=== PATIENT | female | born 1955 | race Hispanic/Latino ===

== ENCOUNTER 2020-08-13 10:57 | Emergency (ER) | payer OTHER, SELFPAY ==
--- OUTSIDE RECORDS SUMMARY | 2020-08-13 11:01 | XMS REPORT | Continuity of Care Document ---
:1955 Author Organization [facility] t Address [address] [place] [address] Care Team Providers Name Role Phone Chao Stafford RN Attending Clinician JESSICA Attending Clinician Unavailable Will Attending Clinician Eve Carreno MD Attending Clinician Anurag GUERRA Attending Clinician Chris Andres DO Attending Clinician RENITA Admitting Clinician Unavailable Anurag GUERRA Admitting Clinician Problems This patient has no known problems. Allergies, Adverse Reactions, Alerts This patient has no known allergies or adverse reactions. Medications This patient has no known medications. Procedures This patient has no known procedures. Encounters Start End Encounter Admission Attending Care Care Encounter Source Date/Time Date/Time Type Type Clinicians Facility Department ID 2020-08-12 2020-08-12 Outpatient [facility] [id number] 00:00:00 00:00:00 [facility]ics 2020-08-08 2020-08-08 Patient Bernice Stafford [id number] 00:00:00 00:00:00 Outreach E Carrillo [id number] [place] [id number] 2020-08-01 2020-08-05 Inpatient ANA LOPEZ [facility] [id number] [place] 00:00:00 00:00:[address] 2020-07-31 2020-07-31 Transition Nikos Solis [id number] 00:00:00 00:00:00 of Care Adalgisa Shawy [id number] [place] [id number] 2020-07-31 2020-07-31 Transition Solis, Nickn [id number] 00:00:00 00:00:00 of Care Adalgisa Shawy [id number] [place] [id number] 2020-07-31 2020-07-31 [facility] [id number] [facility] 00[facility]00[facility]00 [facility] 2020-07-25 2020-07-30 [facility] [id number] 04:52:00 18:00:00 Encounter Snow Osborn [id number] [facility] [id number] 2020-07-29 2020-07-29 [facility] [id number] 2020-06-18 2020-06-18 [facility] [id number] [facility] 2020-03-26 2020-03-26 [facility] [id number] [facility] 2020-03-21 2020-03-21 [facility] [id number] [facility] 2020-03-12 2020-03-12 Outpatient [facility] [id number] [facility] 00:00:00 00:00:00 [facility] Results This patient has no known results.
[2020-08-13 12:08] LABS: Basophils % 1.3 % (0-1.3); Hematocrit 36.6 % (36.0-45.0); Lymphocytes % 35.6 % (15.3-44.8); MPV 8.8 fL (7.6-11.3); RBC Red Blood Cell Count 4.15 M/uL (3.86-4.86)
[2020-08-13] MEDS ORDERED: ONDANSETRON 4 MG/2 ML VIAL ONE (12:15)
[2020-08-13 12:19] LABS: Protime INR 1.36
--- NOTE | 2020-08-13 12:42 | RAD REPORT ---
EXAM DESCRIPTION: RAD - Chest Single View - 08/13/2020 12:20 pm CLINICAL HISTORY: SOB, abdominal pain, recent COVID Diagnosis COMPARISON: None TECHNIQUE: AP portable chest image was obtained 08/13/2020 12:20 pm . FINDINGS: Lung volumes are low. Perihilar stranding is most likely atelectasis or possibly scarring. No definitive pneumonia findings seen. No failure or volume overload suspected. Heart and vasculatur e are normal. No measurable pleural effusion and no pneumothorax. No acute bony abnormality seen. No acute aortic findings suspected. IMPRESSION: Scarring or atelectasis changes are present in the perihilar regions. No definitive finding of COVID-19 pneumonia. If clinically warranted, CT chest imaging could be perfo rmed for more sensitive assessment.
[2020-08-13 12:44] LABS: ALT/SGPT 51 U/L (12-78); AST/SGOT 46 U/L (15-37); Albumin 3.5 g/dL (3.4-5.0); Alkaline Phosphatase 54 U/L (45-117); BUN Blood Urea Nitrogen 8 mg/dL (7-18); Bicarbonate 35 mmol/L (21-32); Bilirubin Direct 0.2 mg/dL (0-0.2); Bilirubin Total 0.8 mg/dL (0.2-1.0); Glucose Level 123 mg/dL (74-106); Lipase 112 U/L (73-393); Magnesium 1.6 mg/dL (1.8-2.4); NT PRO-BNP 22 pg/mL (<125); Protein, Total 7.6 g/dL (6.4-8.2); Sodium Level 136 mmol/L (136-145); Troponin (Emerg Dept Use Only) < 0.02 ng/mL (0.0-0.045)
[2020-08-13 12:46] LABS: Potassium 2.4 mmol/L (3.5-5.1)
[2020-08-13] MEDS ORDERED: POTASSIUM CL SA 10 MEQ TAB PO ONE (13:13)
[2020-08-13] MEDS ORDERED: KCL 20 MEQ/100 mL IVPB 20 MEQ/100 ML BAG IV ONE (13:13)
[2020-08-13] MEDS ORDERED: NA CHLORIDE 0.9% 500 ML ONE (13:57)
--- NOTE | 2020-08-13 14:02 | RAD REPORT ---
EXAM DESCRIPTION: CTAbdomen Pelvis W Contrast - 08/13/2020 1:46 pm CLINICAL HISTORY: Abdominal pain. EPIGASTRIC PAIN COMPARISON: Abdomen Pelvis W Contrast dated 05/06/2016; Chest For Pe Angio dated 08/13/2020 TECHNIQUE: Biphasic CT imaging of the abdomen and pelvis was performed with 100 ml non-ionic IV cont rast. All CT scans are performed using dose optimization technique as appropriate and may include automated exposure control or mA/KV adjustment according to patient size. FINDINGS: Mild atelectasis in the right lung base with trace right pleural fluid. Mild diffuse fatty liver is present. Cholecystectomy clips. The spleen, pancreas adrenal glands and k idneys are within normal limits. No bowel obstruction, free air, free fluid or abscess. Moderate stool is seen throughout the colon. T he appendix is normal. Moderate stool is present throughout the colon. No evidence of significant lym phadenopathy. There is subtle lobulated thickening of the anterior margin of the urinary bladder measuring up to 5 mm. No suspicious bony findings. IMPRESSION: No acute intra-abdominal or pelvic finding. Lobulated focal thickening up to 5 mm anterior aspect of the urinary bladder seen. A small mass is a possibility and follow-up cystoscopy to advised. Small right base focus of atelectasis or early pneumonia with trace right pleural effusion.
--- NOTE | 2020-08-13 14:02 | RAD REPORT ---
EXAM DESCRIPTION: CT - Chest For Pe Angio - 08/13/2020 1:45 pm CLINICAL HISTORY: right flank pain, recent covid COMPARISON: Chest Single View dated 08/13/2020 TECHNIQUE: Dynamically enhanced 3 mm thick images of the chest were obtained during administration o f approximately 150mL Isovue 370 IV contrast. Coronal and oblique MIP reconstruction images were gene rated and reviewed. Exam utilizes a protocol to evaluate the pulmonary arterial tree. All CT scans are performed using dose optimization technique as appropriate and may include automated exposure control or mA/KV adjustment according to patient size. FINDINGS: No pulmonary emboli are identified. The aorta as imaged shows no acute or suspicious finding. No pericardial thickening or effusion. Partial atelectasis changes are present in the right lower lobe. Interstitial markings are mildly pro minent accentuated in part due to respiratory motion. No consolidated mass. Chest findings are not heard spicious for COVID-19 pneumonia. Trace pleural fluid on the right near the atelectasis. No mediastinal or hilar suspicious masses. No chest wall masses or abnormal axillary lymphadenopathy. IMPRESSION: No pulmonary emboli identified. Partial atelectasis in the right lower lobe. A minimal interstitial edema or infiltrate process could be present. Findings are not specific for a COVID-19 pneumonia pattern.
[2020-08-13 16:17] LABS: Urine Blood NEGATIVE (NEG); Urine Glucose NEGATIVE (NEG); Urine Protein NEGATIVE (NEG); Urine Specific Gravity <1.005 (1.005-1.030); Urine pH 5.5 (5.0-7.0)
--- NOTE | 2020-08-13 16:19 | ER ---
Nurse's Notes [facility] Name: Fariba Roper Age: 64 yrs Sex: Female : 1955 Arrival Date: 08/13/2020 Time: 11:04 Bed 6 Private MD: Diagnosis: Other abdominal pain;Hypokalemia;Pneumonia Presentation: 08/13 11:13 Chief complaint: Recently inpatient at [facility] for hb COVID PNA, reports fatigue, nausea, abdominal pain and heart rate 120s. Also reports having a blood clot somewhere and finished unknown blood thinner rx yesterday. Coronavirus screen: Client presents with at least one sign or symptom that may indicate coronavirus-19. Ebola Screen: No symptoms or risks identified at this time. Initial Sepsis Screen: Does the patient meet any 2 criteria? HR > 90 bpm. No. Patient's initial sepsis screen is negative. Does the patient have a suspected source of infection? No. Patient's initial sepsis screen is negative. Risk Assessment: Do you want to hurt yourself or someone else? Patient reports no desire to harm self or others. Onset of symptoms is unknown. 11:13 Method Of Arrival: Ambulatory hb 11:13 Acuity: NIKA 3 hb Historical: - Allergies: 11:16 Codeine; hb - Home Meds: 13:36 levothyroxine 75 mcg tab 1 tab once daily [Active]; Janumet 50-1,000 mg oral tab 1 tab tw2 2 times per day [Active]; hydrochlorothiazide 25 mg Oral tab 1 tab once daily [Active]; furosemide 40 mg Oral tab 1 tab once daily [Active]; ezetimibe oral 10 mg oral 1 tab once daily [Active]; benzonatate 200 mg oral cap 1 cap 3 times per day [Active]; rivaroxaban oral 10 mg oral 1 tab once daily [Active]; - PMHx: 11:16 Diabetes - NIDDM; Hypertension; Hypothyroidism; Pancreatitis; hb - PSHx: 11:16 Cholecystectomy; hb - Immunization history:: Adult Immunizations up to date. - Social history:: Smoking status: Patient denies any tobacco usage or history of. Screenin:04 Abuse screen: Denies threats or abuse. Nutritional screening: No deficits noted. tw2 Tuberculosis screening: No symptoms or risk factors identified. Fall Risk None identified. Assessment: 11:16 Reassessment: Daughter Maria [phone]. hb 12:00 General: Appears in no apparent distress. obese, well groomed, Behavior is calm, tw2 cooperative, appropriate for age. Pain: Complains of pain in right upper quadrant and left upper quadrant. Neuro: Level of Consciousness is awake, alert, obeys commands, Oriented to person, place, time, situation. Cardiovascular: Patient's skin is warm and dry. Respiratory: Airway is patent Respiratory effort is even, unlabored, Respiratory pattern is regular, symmetrical. GI: Abdomen is round non-distended, Reports nausea. : No signs and/or symptoms were reported regarding the genitourinary system. EENT: No signs and/or symptoms were reported regarding the EENT system. Derm: Musculoskeletal: Range of motion: intact in all extremities. 13:00 Reassessment: Patient appears in no apparent distress at this time. Patient and/or tw2 family updated on plan of care and expected duration. Pain level reassessed. Patient is alert, oriented x 3, equal unlabored respirations, skin warm/dry/pink. pts states nausea is decreased Patient states feeling better. 14:18 Reassessment: Patient appears in no apparent distress at this time. No changes from tw2 previously documented assessment. Patient and/or family updated on plan of care and expected duration. Pain level reassessed. Patient is alert, oriented x 3, equal unlabored respirations, skin warm/dry/pink. 15:21 Reassessment: Patient appears in no apparent distress at this time. No changes from tw2 previously documented assessment. Patient and/or family updated on plan of care and expected duration. Pain level reassessed. Patient is alert, oriented x 3, equal unlabored respirations, skin warm/dry/pink. 15:53 Reassessment: provider at bedside at this time discussing poc. tw2 16:37 Reassessment: Patient appears in no apparent distress at this time. No changes from tw2 previously documented assessment. Patient and/or family updated on plan of care and expected duration. Pain level reassessed. Patient is alert, oriented x 3, equal unlabored respirations, skin warm/dry/pink. Vital Signs: 11:13 BP 140 / 75; Pulse 98; Resp 18; Temp 99.6(O); Pulse Ox 97% on R/A; Pain 10/10; hb 12:05 BP 113 / 84; Pulse 89; Resp 18; Pulse Ox 97% on R/A; tw2 13:24 BP 142 / 75; Pulse 80; Resp 18; Pulse Ox 97% ; sv 14:18 BP 153 / 47; Pulse 74; Resp 17; Pulse Ox 96% on R/A; tw2 15:21 BP 117 / 78; Pulse 79; Resp 17; Pulse Ox 97% on R/A; tw2 16:22 BP 129 / 74; Pulse 77; Resp 17; Pulse Ox 97% on R/A; tw2 ED Course: 11:04 Patient arrived in ED. ds1 11:16 Triage completed. hb 11:16 Arm band placed on. hb 11:16 Placed in gown. Bed in low position. Call light in reach. civil rights attorney on. Pulse ox tw2 on. NIBP on. Warm blanket given. 11:17 Arnulfo King PA is PHCP. [facility] 11:17 Conner Guerra MD is Attending Physician. jmm 11:55 Danika Swan, ILA is Primary Nurse. tw2 12:04 Inserted saline lock: 22 gauge in right antecubital area, using aseptic technique. tw2 ,using aseptic technique. by [employer] Blood collected. 12:20 XRAY Chest (1 view) In Process Unspecified. EDMS 12:28 EKG done, by ED staff, reviewed by Conner Guerra MD Powerline interference on EKG, sr5 different EKG machine tried, cellphone removed, no equipment plugged in, unable to resolve powerline interference. notified, viewed EKG obtained. 13:26 Basic Metabolic Panel Sent. sv 13:26 CBC with Diff Sent. sv 13:26 LFT's Sent. sv 13:26 Magnesium Sent. sv 13:45 CT Chest For PE Angio In Process Unspecified. EDMS 13:46 CT Abd/Pelvis - IV Contrast Only In Process Unspecified. EDMS 16:17 Sanjeev Polanco MD is Referral Physician. jmm 16:37 No provider procedures requiring assistance completed. IV discontinued, intact, tw2 bleeding controlled, No redness/swelling at site. Pressure dressing applied. Administered Medications: 12:00 Drug: Zofran (Ondansetron) 4 mg Route: IVP; Site: right antecubital; tw2 13:00 Follow up: Response: No adverse reaction; Nausea is decreased tw2 13:30 Drug: Potassium Chloride 40 mEq Route: PO; tw2 14:19 Follow up: Response: No adverse reaction tw2 13:31 Drug: Potassium Chloride 20 mEq Route: IV; Rate: calculated rate; Site: right tw2 antecubital; 16:00 Follow up: IV Status: Completed infusion; IV Intake: 100ml tw2 13:40 Drug: NS 0.9% 500 ml Route: IV; Rate: bolus; Site: right antecubital; tw2 16:00 Follow up: Response: No adverse reaction; IV Status: Completed infusion; IV Intake: tw2 500ml Intake: 16:00 IV: 100ml; Total: 100ml. tw2 16:00 IV: 500ml; Total: 600ml. tw2 Outcome: 16:18 Discharge ordered by MD. riccardo 16:37 Discharged to home ambulatory. tw2 16:37 Condition: stable 16:37 Discharge instructions given to patient, Instructed on discharge instructions, follow up and referral plans. medication usage, Demonstrated understanding of instructions, follow-up care, medications, Prescriptions given X 1. 16:38 Patient left the ED. tw2 Signatures: Dispatcher [employer] EDMS Shauna Smith RN RN Arnulfo Lawrence PA PA jmm Sanford, Demi ds1 Summer Be RN Danika Lancaster RN ILA tw2 Alvarez Vaca RN RN sr5 Corrections: (The following items were deleted from the chart) 11:17 11:13 Chief complaint: Recently inpatient for COVID PNA, reports fatigue, nausea, hb abdominal pain and heart rate 120s. Also reports having a blood clot somewhere and finished unknown blood thinner rx yesterday. hb
--- NOTE | 2020-08-13 16:19 | EDPHYS ---
Physician Documentation [facility] Name: Fariba Roper Age: 64 yrs Sex: Female : 1955 Arrival Date: 08/13/2020 Time: 11:04 Bed 6 Private MD: ED Physician Conner Guerra HPI: 08/13 11:33 This 64 yrs old Female presents to ER via Ambulatory with complaints of Upper jmm Abd pain, Nausea. 11:33 The patient presents with abdominal pain. Onset: The symptoms/episode began/occurred jmm gradually. The symptoms radiate to Associated signs and symptoms: Pertinent positives: nausea. The symptoms are described as achy. This is a 64 year old female with a history of DM, HTN, Hypothyroidism that presents to the ED with complaints of epigastric pain, nausea. Patient was recently discharged for COVID 19. Patient was prescribewd xarelto for PE/DVT prophylaxis. Patient states her surgical history of cholecystectomy. Denies lower abdominal pain or dysuria. . Historical: - Allergies: 11:16 Codeine; hb - Home Meds: 13:36 levothyroxine 75 mcg tab 1 tab once daily [Active]; Janumet 50-1,000 mg oral tab 1 tab tw2 2 times per day [Active]; hydrochlorothiazide 25 mg Oral tab 1 tab once daily [Active]; furosemide 40 mg Oral tab 1 tab once daily [Active]; ezetimibe oral 10 mg oral 1 tab once daily [Active]; benzonatate 200 mg oral cap 1 cap 3 times per day [Active]; rivaroxaban oral 10 mg oral 1 tab once daily [Active]; - PMHx: 11:16 Diabetes - NIDDM; Hypertension; Hypothyroidism; Pancreatitis; hb - PSHx: 11:16 Cholecystectomy; hb - Immunization history:: Adult Immunizations up to date. - Social history:: Smoking status: Patient denies any tobacco usage or history of. ROS: 11:33 Constitutional: Negative for fever, chills, and weight loss, Cardiovascular: Negative jmm for chest pain, palpitations, and edema, Respiratory: Negative for shortness of breath, cough, wheezing, and pleuritic chest pain. 11:33 Abdomen/GI: Positive for abdominal pain, nausea. 11:33 Back: Positive for radiated pain. 11:33 All other systems are negative. Exam: 11:33 Constitutional: This is a well developed, well nourished patient who is awake, alert, jmm and in no acute distress. Head/Face: atraumatic. Eyes: EOMI, no conjunctival erythema appreciated ENT: Moist Mucus Membranes Neck: Trachea midline, Supple Chest/axilla: Normal chest wall appearance and motion. Cardiovascular: Regular rate and rhythm. No edema appreciated Respiratory: Normal respirations, no respiratory distress appreciated Abdomen/GI: Non distended, soft Back: Normal ROM Skin: General appearance color normal MS/ Extremity: Moves all extremities, no obvious deformities appreciated, no edema noted to the lower extremities Neuro: Awake and alert, normal gait Psych: Behavior is normal, Mood is normal, Patient is cooperative and pleasant Vital Signs: 11:13 BP 140 / 75; Pulse 98; Resp 18; Temp 99.6(O); Pulse Ox 97% on R/A; Pain 10/10; hb 12:05 BP 113 / 84; Pulse 89; Resp 18; Pulse Ox 97% on R/A; tw2 13:24 BP 142 / 75; Pulse 80; Resp 18; Pulse Ox 97% ; sv 14:18 BP 153 / 47; Pulse 74; Resp 17; Pulse Ox 96% on R/A; tw2 15:21 BP 117 / 78; Pulse 79; Resp 17; Pulse Ox 97% on R/A; tw2 16:22 BP 129 / 74; Pulse 77; Resp 17; Pulse Ox 97% on R/A; tw2 MDM: 11:28 Patient medically screened. [facility] 16:14 Data reviewed: vital signs, nurses notes. Counseling: I had a detailed discussion with [facility] the patient and/or guardian regarding: the historical points, exam findings, and any diagnostic results supporting the discharge/admit diagnosis, lab results, radiology results, the need for outpatient follow up, to return to the emergency department if symptoms worsen or persist or if there are any questions or concerns that arise at home. ED course: Patient is alert and non toxic in appearance in the ED. Will treat with oral abx due to ct findings. Patient is also encouraged to follow up with urology for evaluation of bladder findings. Patient understood and agrees with the plan of care. . 08/13 11:29 Order name: Basic Metabolic Panel [facility] 08/13 11:29 Order name: CBC with Diff [facility] 08/13 11:29 Order name: LFT's [facility] 08/13 11:29 Order name: Magnesium [facility] 08/13 11:29 Order name: NT PRO-BNP; Complete Time: 12:50 [facility] 08/13 11:29 Order name: PT-INR; Complete Time: 12:23 [facility] 08/13 11:29 Order name: Troponin (emerg Dept Use Only); Complete Time: 12:50 [facility] 08/13 11:29 Order name: Lactate; Complete Time: 12:28 [facility] 08/13 11:29 Order name: Procalcitonin; Complete Time: 13:31 [facility] 08/13 11:29 Order name: Blood Culture Adult (2) [facility] 08/13 11:30 Order name: Basic Metabolic Panel; Complete Time: 12:50 [facility] 08/13 11:30 Order name: CBC with Automated Diff; Complete Time: 12:23 [facility] 08/13 11:30 Order name: Liver (Hepatic) Function; Complete Time: 12:50 [facility] 08/13 11:30 Order name: Magnesium; Complete Time: 12:50 [facility] 08/13 11:29 Order name: XRAY Chest (1 view); Complete Time: 12:50 [facility] 08/13 11:29 Order name: EKG; Complete Time: 11:30 [facility] 08/13 11:29 Order name: Cardiac monitoring; Complete Time: 11:55 [facility] 08/13 11:29 Order name: EKG - Nurse/Tech; Complete Time: 12:28 [facility] 08/13 11:29 Order name: IV Saline Lock; Complete Time: 11:55 [facility] 08/13 11:29 Order name: Labs collected and sent; Complete Time: 12:28 [facility] 08/13 11:29 Order name: O2 Per Protocol; Complete Time: 11:56 [facility] 08/13 11:30 Order name: Lipase; Complete Time: 12:50 [facility] 08/13 11:49 Order name: CT Chest For PE Angio; Complete Time: 14:04 [facility] 08/13 11:49 Order name: CT Abd/Pelvis - IV Contrast Only; Complete Time: 14:04 [facility] 08/13 14:19 Order name: Urine Culture [facility] 08/13 16:03 Order name: Urine Dipstick--Ancillary (enter results); Complete Time: 16:40 08/13 11:29 Order name: O2 Sat Monitoring; Complete Time: 11:56 [facility] 08/13 14:19 Order name: Urine Dipstick-Ancillary (obtain specimen); Complete Time: 15:53 [facility] Administered Medications: 12:00 Drug: Zofran (Ondansetron) 4 mg Route: IVP; Site: right antecubital; tw2 13:00 Follow up: Response: No adverse reaction; Nausea is decreased tw2 13:30 Drug: Potassium Chloride 40 mEq Route: PO; tw2 14:19 Follow up: Response: No adverse reaction tw2 13:31 Drug: Potassium Chloride 20 mEq Route: IV; Rate: calculated rate; Site: right tw2 antecubital; 16:00 Follow up: IV Status: Completed infusion; IV Intake: 100ml tw2 13:40 Drug: NS 0.9% 500 ml Route: IV; Rate: bolus; Site: right antecubital; tw2 16:00 Follow up: Response: No adverse reaction; IV Status: Completed infusion; IV Intake: tw2 500ml Disposition: 17:06 Co-signature as Attending Physician, Conner Guerra MD. rn Disposition: 08/13/20 16:18 Discharged to Home. Impression: Other abdominal pain, Hypokalemia, Pneumonia. - Condition is Stable. - Discharge Instructions: Abdominal Pain, Adult, Potassium Content of Foods, Community-Acquired Pneumonia, Adult, Hypokalemia. - Prescriptions for Levaquin 750 mg Oral Tablet - take 1 tablet by ORAL route once daily for 10 days; 10 tablet. - Medication Reconciliation Form, Thank You Letter, Antibiotic Education, Prescription Opioid Use, Work release form, SBAR form form. - Follow up: Sanjeev Polanco MD; When: 2 - 3 days; Reason: Recheck today's complaints, Continuance of care, Re-evaluation by your physician. Signatures: Dispatcher [employer] EDMS Arnulfo King PA PA [facility] Conner Guerra MD MD rn Baxter, Heather, RN RN hb Wise, Tara, RN RN tw2 Corrections: (The following items were deleted from the chart) 16:38 16:18 08/13/2020 16:18 Discharged to Home. Impression: Other abdominal pain; tw2 Hypokalemia; Pneumonia. Condition is Stable. Forms are SBAR form, Medication Reconciliation Form, Thank You Letter, Antibiotic Education, Prescription Opioid Use. Follow up: Sanjeev Polanco; When: 2 - 3 days; Reason: Recheck today's complaints, Continuance of care, Re-evaluation by your physician. erica
[2020-08-13 16:48] VITALS: TEMP 99.6
[2020-08-13 16:54] VITALS: O2SAT 97
[2020-08-13 16:55] VITALS: BP 129/74
--- NOTE | 2020-08-14 07:04 | EKG ---
Test Date: 2020-08-13 Test Time: 12:18:10 [employer]en [employer]: MICHAEL MEASUREMENT RESULTS: Intervals: Rate: 86 FL: 148 QRSD: 84 QT: 414 QTc: 495 [place]: P: 87 FL: 148 QRS: -9 T: 5 INTERPRETIVE STATEMENTS: Normal sinus rhythm Nonspecific ST and T wave abnormality Abnormal ECG Compared to ECG 10/02/2016 11:18:34 ST (T wave) deviation now present Prolonged QT interval no longer present Electronically Signed On 08-14-20 07:02:29 CDT by Alessandro Ridley
== END 2020-08-13 16:38 | disposition home or self-care (01) ==
LOC: ER 10:57
DX: E87.6 Hypokalemia (principal); J18.9 Pneumonia, unspecified organism; Z86.16 Personal history of COVID-19; I10 Essential (primary) hypertension; E11.9 Type 2 diabetes mellitus without complications; E03.9 Hypothyroidism, unspecified; Z79.01 Long term (current) use of anticoagulants; Z88.5 Allergy status to narcotic agent; Z86.718 Personal history of other venous thrombosis and embolism
CPT/HCPCS: 36415; 71045; 71275; 74177; 80048; 80076; 81003; 83605; 83690; 83735; 83880; 84145; 84484; 85025; 85610; 87040; 87086; 87088; 93005; 96365; 96366; 96375; 99285; J2405; J3480; J7040; Q9967

== ENCOUNTER 2020-10-16 11:43 | Emergency (ER) | payer OTHER, SELFPAY ==
--- OUTSIDE RECORDS SUMMARY | 2020-10-16 11:47 | XMS REPORT | Continuity of Care Document ---
:[address] [facility] t Address [address] [place] [address] Care Team Providers Name Role Phone Asked, Pcp Primary Care Physician Unavailable Doctor Unassigned, Name Attending Clinician Unavailable Carlos GUERRA Attending Clinician Rivera THORPE E Attending Clinician Vaishali Negrete MD Attending Clinician Joey GUERRA Attending Clinician Jaleel GUERRA Attending Clinician Will Attending Clinician Eve Carreno MD Attending Clinician Anurag GUERRA Attending Clinician Chris Andres DO Attending Clinician JOEY Admitting Clinician Unavailable Anurag GUERRA Admitting Clinician Payers Payer Name Policy Type Policy Effective Date Expiration Date Sour ce Number COVID19 [facility] [id number] 2019 [place] UNINSURED 00:00:00 [facility] TESTING AND TREATMENT [id number] [facility] UNINSURED TESTING AND TREATMENT [id number] 08/2019-PresentS elf-Pay Problems Condition Condition Condition Status Onset Resolution Last Treating Co mments Source Name Details Category Date Date Treatment Clinician Date Hypoxia Hypoxia Disease Active [facility] 3-14 Methodi 00:00: st 00 Electrolyt Electrolyt Disease Active [place] e e 08-02 Methodi abnormalit abnormalit 00:00: st y y 00 Gastroente Gastroente Disease Active [place] ritis due ritis due 11 Meth farhana to to 00:00: st COVID-19 COVID-19 00 virus virus Allergies, Adverse Reactions, Alerts Allergy Allergy Status Severity Reaction(s) Onset Inactive Treating Comm ents Source Name Type Date Date Clinician Codeailyn Propensi Active Shortness Of nausea [place] ty to Breath, GI 08-01 Method i adverse Intolerance 00:00: st reaction 00 s to drug Social History Social Habit Start Date Stop Date Quantity Comments Source Tobacco use and 2020-08-01 2020-08-01 Never used [facility] ethodist exposure 00:00:00 00:00:00 Sex [birth year] At [birth year] [facility] ethodist 00:00:00 00:00:00 Smoking Status Start Date Stop Date Source Never smoker [facility] Bachis t Medications Ordered Filled Start Stop Current Ordering Indication Dosage Frequency Signature Comments Components Source Medication Medication Date Date Medication? Clinician (SIG) Name Name rivaroxaban 10mg QD Take 1 V[facility] (XARELTO) 3-16 03-23 tablet (10 Met hodi 10 mg 00:00: 23:59 mg total) st tablet 00 :00 by mouth daily for 7 days. SITagliptin Yes 1{tbl} Q.5D Take 1 [place] -metformin 3-15 tablet by Meth farhana (Janumet 14:12: mouth 2 st XR) 43 (two) 50-1,000 mg times a tablet, ER day. multiphase 24 hr benzonatate Yes 200mg Q.[id number] Take 200 [place] (TESSALON) 3-15 [id number] mg by Me thodi 100 MG 14:12: 3D mouth 3 st capsule 43 (three) times a day as needed for cough. Patient reported taking differentl y 2 tablets by mouth 2 times daily as needed for cough furosemide Yes 40mg QD Take 40 mg [place] (LASIX) 40 3-15 by mouth Metho di mg tablet 14:12: daily. st 43 ezetimibe Yes 10mg QD Take 10 mg [place] (ZETIA) 10 3-15 by mouth Metho di mg tablet 14:12: daily. st 43 levothyroxi Yes 75ug QD Take 75 [facility] ne 3-15 mcg by Methodi (SYNTHROID) 14:12: mouth st 75 mcg 43 every tablet morning. hydroCHLORO Yes 25mg QD Take 25 mg [place] thiazide 3-15 by mouth Methodi (HYDRODIURI 14:12: every st L) 25 MG 43 morning. tablet acetaminoph Yes 500mg Q6H Take 500 [place] en 3-15 mg by Methodi (TYLENOL) 14:12: mouth st 500 MG 43 every 6 tablet (six) hours as needed for mild pain. rivaroxaban Take 15mg [place] (XARELTO) 3-15 08-05 twice Methodi 10 mg 00:00: 00:[address] tablet 00 :00 mouth until 08/25/2020 and then take 20mg DAILY by mouth thereafter until seen by a physician rivaroxaban No 10mg QD Take 1 V[facility] st[facility] (XARELTO) 3-15 15 tablet (10 Met hodi 10 mg 00:00: 00:00 mg total) st tablet 00 :00 by mouth daily. Vital Signs Vital Name Observation Time Observation Value Comments Source Systolic blood 2020-08-05 13:50:19 147 mm[Hg] [place] n Bahai pressure Diastolic blood 2020-08-05 13:50:19 70 mm[Hg] Mary on Bahai pressure Heart rate 2020-08-05 13:50:19 76 /min [facility] [place] Body temperature 2020-08-05 13:50:19 36.33 Cori Aretha ton Bahai Respiratory rate 2020-08-05 13:50:19 19 /min Aretha [place] Oxygen saturation in 2020-08-05 13:50:19 96 /min [place] [place] Arterial blood by Pulse oximetry Body height 2020-08-04 19:59:00 162.6 cm [facility] [place] Body weight 2020-08-01 21:00:06 83.462 kg [place] [place] BMI 2020-08-01 21:00:06 31.58 kg/m2 [place] [place] Procedures Procedure Date / Time Performing Clinician Source Performed POC GLUCOSE 2020-08-05 12:32:00 Ana Marmolejo Meth odist POC GLUCOSE 2020-08-05 08:17:00 Ana Marmolejo Meth odist HC COMPLETE BLD COUNT 2020-08-05 03:46:00 Romy Cook n Bahai W/AUTO DIFF COMPREHENSIVE METABOLIC 2020-08-05 03:46:00 Romy Cook ton Bahai PANEL ESTIMATED GFR 2020-08-05 03:46:00 Romy Cook Meth odist POC GLUCOSE 2020-08-04 21:10:00 Jaleel Ana [facility] Meth odist POC GLUCOSE 2020-08-04 17:21:00 Jaleel Kalanimaria del rosario [facility] Meth odist US DUPLEX VENOUS LOWER 2020-08-04 15:00:00 Romy Cook on Bahai EXTREMITY BILATERAL POC GLUCOSE 2020-08-04 11:53:00 Jaleel Ana [facility] Meth odist POC GLUCOSE 2020-08-04 07:44:00 Jaleel Kalanimaria del rosario [facility] Meth odist HC COMPLETE BLD COUNT 2020-08-04 04:30:00 Romy Cook Bahai W/AUTO DIFF COMPREHENSIVE METABOLIC 2020-08-04 04:30:00 Romy Cook Bahai PANEL ESTIMATED GFR 2020-08-04 04:30:00 Romy Cook Meth odist POC GLUCOSE 2020-08-03 20:17:00 Jaleel Ana [facility] Meth odist URINE CULTURE 2020-08-03 18:30:00 Drew Rahman ethodist Imarendenewe URINALYSIS SCREEN AND 2020-08-03 18:30:00 Drew Rahman Bahai MICROSCOPY, WITH REFLEX Imarendenewe TO CULTURE POC GLUCOSE 2020-08-03 16:36:00 Ana Marmolejo Meth odist POC GLUCOSE 2020-08-03 11:17:00 Jaleel Ana [facility] Meth odist POC GLUCOSE 2020-08-03 07:19:00 Romy Cook Meth odist HC COMPLETE BLD COUNT 2020-08-03 05:00:00 Matthew Cookchita [place] n Bahai W/AUTO DIFF COMPREHENSIVE METABOLIC 2020-08-03 05:00:00 Romy Cook Aretha ton Bahai PANEL ESTIMATED GFR 2020-08-03 05:00:00 Romy Cook Meth odist POC GLUCOSE 2020-08-02 21:12:00 Romy Cook Meth odist POC GLUCOSE 2020-08-02 16:45:00 Romy Cook Meth odist HC COMPLETE BLD COUNT 2020-08-02 12:51:00 Romy Cook [place] n [place]ai W/AUTO DIFF LACTIC ACID LEVEL 2020-08-02 12:51:00 Romy Cook Me thodist ESTIMATED GFR 2020-08-02 12:51:00 Romy Cook Meth odist COMPREHENSIVE METABOLIC 2020-08-02 12:51:00 Matthew Cookcarlos reynoso Bahai PANEL POC GLUCOSE 2020-08-02 11:22:00 Romy Cook Meth odist POC GLUCOSE 2020-08-02 07:35:00 Romy Cook odist BASIC METABOLIC PANEL 2020-08-02 05:21:00 Drew Rahman Imarendenewe ESTIMATED GFR 2020-08-02 05:21:00 Drew Rahman ethodist Imarendenewe LACTIC ACID LEVEL, SEPSIS 2020-08-01 22:46:00 Drew Rahman - NOW AND REPEAT 2X EVERY Imarendenewe 3 HOURS TROPONIN 2020-08-01 22:46:00 Drew Rahman ethodist Imarendenewe POC GLUCOSE 2020-08-01 21:01:00 CookRomy vickers Meth odist ECG ED PRELIMINARY 2020-08-01 20:52:45 Unruly Negrete INTERPRETATION [facility], E/M 2020-08-01 20:52:45 Bakshy, Unruly Tom [place] Bahai 30-[address] ANGIOGRAM PE CHEST 2020-08-01 20:49:20 Nate Negretejonathan reynoso Bahai XR CHEST 1 VW PORTABLE 2020-08-01 16:36:43 Unruly Negrete [place] Bahai ECG 12-LEAD 2020-08-01 16:13:56 Nate Negretejonathan [place] Me thodist RESPIRATORY PATHOGEN 2020-08-01 15:30:00 Nate Negretejonathan Hernandez on Bahai PANEL WITH COVID-19 HC COMPLETE BLD COUNT 2020-08-01 15:30:00 Nate Negretejonathan reynoso Bahai W/AUTO DIFF PROTHROMBIN TIME WITH INR 2020-08-01 15:30:00 CadenUnruly Bahai PARTIAL THROMBOPLASTIN 2020-08-01 15:30:00 Unruly Negrete Va[place] Bahai TIME (PTT) COMPREHENSIVE METABOLIC 2020-08-01 15:30:00 Jaminting Unrulyjonathan rodriguez Bahai PANEL MAGNESIUM LEVEL 2020-08-01 15:30:00 Caden Unrulyjonathan Grimm Md thodist LACTIC ACID LEVEL, SEPSIS 2020-08-01 15:30:00 Drew Rahman - NOW AND REPEAT 2X EVERY Imarendenewe 3 HOURS CREATINE KINASE, TOTAL 2020-08-01 15:30:00 Jaminting Unrulyjonathan hills Bahai (CPK) TROPONIN 2020-08-01 15:30:00 Drew Rahman M ethodist Imarendenewe B NATRIURETIC PEPTIDE 2020-08-01 15:30:00 Jaminting Unrulyjonathan reynoso Bahai D-DIMER 2020-08-01 15:30:00 Unruly Negrete Md thodist LIPASE LEVEL 2020-08-01 15:30:00 JaminUnruly maguire Md thodist AMYLASE LEVEL 2020-08-01 15:30:00 JaminUnruly maguire Md thodist ESTIMATED GFR 2020-08-01 15:30:00 Unruly Negrete Md thodist BLOOD CULTURE, AEROBIC & 2020-08-01 14:31:00 Unruly Negrete ANAEROBIC BLOOD CULTURE, AEROBIC & 2020-08-01 14:30:00 Unruly Negrete ANAEROBIC Plan of Care Planned Activity Planned Date Details Comments Source Future Scheduled 2020-12-22 INFLUENZA VACCINE [place] [facility] Test 00:00:00 [code = INFLUENZA VACCINE] Future Scheduled 2007-09-04 BREAST CANCER [facility] thodist Test 00:00:00 SCREENING [code = BREAST CANCER SCREENING] Future Scheduled 2007-09-04 COLONOSCOPY SCREENING [place] [facility] Test 00:00:00 [code = COLONOSCOPY SCREENING] Future Scheduled 2007-09-04 SHINGLES VACCINES (#1) [place] [facility]ai Test 00:00:00 [code = SHINGLES VACCINES (#1)] Future Scheduled 1978 Screening for [facility] thodist Test 00:00:00 malignant neoplasm of cervix (procedure) [code = 036353031] Future Scheduled 1975-09-04 Hepatitis C screening [place] [facility]ai Test 00:00:00 (procedure) [code = 942316091] Future Scheduled 1969 COVID-19 VACCINE (1) [facility] Bahai Test 00:00:00 [code = COVID-19 VACCINE (1)] Future Scheduled 1967-09-04 DIABETES: RETINAL EYE [place] [facility] Test 00:00:00 EXAM [code = DIABETES: RETINAL EYE EXAM] Future Scheduled 1967-09-04 DIABETIC FOOT EXAM [place] [facility] Test 00:00:00 [code = DIABETIC FOOT EXAM] Future Scheduled 1967-09-04 URINE MICROALBUMIN [place] [facility] Test 00:00:00 [code = URINE MICROALBUMIN] Encounters Start End Encounter Admission Attending Care Care Encounter Source Date/Time Date/Time Type Type Clinicians Facility Department ID 2020-09-19 2020-09-19 Outpatient [facility] [id number] [facility] 2020-09-16 2020-09-16 Outpatient [facility] [id number] [facility] 2020-09-16 2020-09-16 Orders Doctor [place] [id number] 00:00:00 00:00:00 Only Unassigned, PALLAVI [id number] [place] [facility] [id number] 2020-09-12 2020-09-12 Rain Gonzalez [facility] [id number] 00:00:00 00:00:00 [facility] [id number] [facility] [id number] TIMI [id number] 2020-08-26 2020-08-26 Outpatient [facility] [id number] [facility] 2020-08-22 2020-08-22 Outpatient [facility] [id number] [facility] 2020-08-20 2020-08-20 Out[facility] [id number] [facility] 2020-08-14 2020-08-14 Outpatient [facility] [id number] [facility] 2020-08-14 2020-08-14 [facility] [id number] [facility] 2020-08-13 2020-08-13 Out[facility] [id number] [facility] 2020-08-12 2020-08-12 Out[facility] [id number] [facility] 2020-08-08 2020-08-08 Patient Bernice Stafford [id number] 00:00:00 00:00:00 Outreach E Carrillo [id number] [place] [id number] 2020-08-01 2020-08-05 Inpatient ANA MARMOLEJO [facility] [id number] [place] 00:00:00 00:00:[address] 2020-07-31 2020-07-31 Outpatient [facility] [id number] [facility] St 00:00:00 00:00:00 [facility] 2020-07-31 2020-07-31 Transition Nikos Solis [id number] 00:00:00 00:00:00 of Care Adalgisa Carrillo [id number] [place] [id number] 2020-07-31 2020-07-31 Transition Nikos Solis [id number] 00:00:00 00:00:00 of Care Adalgisa Carrillo [id number] [place] [id number] 2020-07-25 2020-07-30 [facility] 1.2.840. [id number] 04:52:00 18:00:00 Encounter Snow Osborn Pallavi [id number] [facility] 4.2.7.2. [id number] 2020-07-29 2020-07-29 [facility] [id number] [facility] St 00:00:00 00:00:00 [facility] 2020-06-18 2020-06-[facility] [id number] [facility] St 00[facility]00:00 00[facility]00:00 [facility] 2020-03-26 2020-03-[facility] [id number] [facility] St 00[facility]00:00 00:00:00 [facility] 2020-03-21 2020-03-[facility] [id number] [facility] St 00[facility]00:00 00:00:00 [facility] 2020-03-12 2020-03-12 [facility] [id number] [facility] 00:00:00 00:00:00 Roque conrad [facility] Results Test Test Test Results Result Source Description Time Comments Comments Us duplex 2020-07- Interface, Radiology [place] venous lower 14 Results In - 08/04/2020 Bahai extremity 20:23:00 8:24 PM CDT [facility] Lower Extremity Venous Report [address] [place] [address] Pat.Name: GRISEL GOMEZ Pat.ID: [id number] St.Date: 08/04/2020 Refer.MD: ANA MARMOLEJO MD Exam Time: 1:37:00 PM Study Type:LE Venous Height: 64in Weight: 184lb BSA: 1.89 m2 Age: 4 1955,64Y Sex: FEMALE Sonogrphr: SHANE Mantilla. Stat.:Inpatient Room: [address] Tape Vol: VM, Echo Event ID:[id number] Order ID: [id number] Reason for Study:COVID19. History of pneumonia, DM and HLD.Procedures: Colorflow, Grayscale/2D, Pulsed wave DopplerRace: C SUMMARY:------ -----DUPLEX SCAN OBSERVATIONS Deep Veins Superficial Veins Right Left Right Left GSV (prox) Normal NormalCFV Normal Normal (above knee)Femoral Normal Normal GSV (dist) Not Visualized Not VisualizedProfunda Normal Normal (below knee)Popliteal Normal NormalPT (prox) Normal Normal SSV Not Visualized Not VisualizedPT (dist) Normal Normal Peroneal Normal Normal Gastrocs Normal NormalRIGHT: There is normal compressibility with no evidence of echogenicmaterial noted within the lumen of the visualized veins. Colorflow andDoppler signals are normal.LEFT: There is normal compressibility with no evidence of echogenicmaterial noted within the lumen of the visualized veins. Colorflow andDoppler signals are normal. PRELIMINARY FINDINGS:1. There is no evidence of venous thrombosis seen in the visualizedveins.PHYSICIAN INTERPRETATION: Venous examination of the both lower extremities demonstrated noevidence of venous thrombosis in the visualized veins. Normalcompressibility and augmentation of all veins visualized. FIN DINGS: Signed 08/04/2020 08:23 PMLazaro Colon MD, RPVI Urine culture 2020-08-03 18:53:02 Test Item Value Reference Range Interpretation Comme nts Urine culture (test code = 6627394) SEE COMMENT Bacteriuria screen negative. [place] [facility] Pe [id number] 20:55:54Hm Interface, Radiology Results - 08/01/2020 8:59 PM CSTFormatting of this note might be di fferent from the original.EXAMINATION:CT ANGIOGRAM PE CHESTCLINICAL HISTORY: PE suspected low intermediate prob positive D-dimer, positive Covid 19TECHNIQUE:CT angiographic images of the chest were obtained during intravenous administration of iodinated contrast. Computerized reformatted images and 3-D MIP images were also obtained and archived (CT pulmonary embolus protocol). Approximately 60 cc of Omnipaque [address] scan performed using radiation dose reduction techniques. Technical factors are evaluated and adjusted to ensure appropriate moderation of exposure. Automated dose management technology is applied to adjust the radiation dose to minimize expose while achieving a diagnostic quality image.COMPARISON:None.FINDINGS:The main pulmonary artery, right pulmonary artery and leftpulmonary artery as well as their visualized segmental and subsegmental branches demonstrate no evidence of pulmonary embolism. The pulmonary arteries are normal in caliber.There is no evidence of aortic aneurysm or dissection.No mediastinum, hilar or axillary pathologic adenopathy is seen.The heart is normal in caliber. No pericardial effusion is seen.Patchy bilateral predominantly peripheral groundglass opacities and reticulations are seen, consistent with Covid 19 pneumonia. Bibasilar dependent atelectasis also noted.. There is no evidence of pneumothorax. No pulmonary nodule or mass is present.The image portion of the abdomen viscera is unremarkable.IMPRESSION:No CTA evidence of pulmonary embolism.No CTA evidence of aortic aneurysm or dissection.Findings consistent with mild to moderate bilate ral multifocal Covid 19 pneumonia.[id number] ED Preliminary Interpretation - Not an [id number] 20:52:45 Test Item Value Reference Range Interpretation Comments JUAN MANUEL (test code = JUAN MANUEL) Unruly Negrete MD 08/21/2020 3:22 [facility] Preliminary Interpretation - Not an OrderPerformed by: Unruly Negrete MDAuthorized by: Unruly Negrete MD ECG reviewed by ED Physician in the absence of a silk top hat body maker: yes Interpretation: Interpretation: abnormal Rate: ECG rate: 95 ECG rate assessment: normal Rhythm: Rhythm: sinus rhythm QRS: QRS axis: Normal QRS intervals: NormalConduction: Conduction: normal ST segments: ST segments: Abnormal Depression: V5, V6, aVL and IOther findings: Other findings: LAE and LVH Lab Interpretation Abnormal (test code = 41263-8) [facility]2021-03-11 20:52:45Unruly Negrete MD 08/21/2020 3:22 AMCritical CarePerformed by: Unruly Negrete MDAuthorized by: Unruly Negrete MD Critical care provider statement: Critical care time (minutes): 44 Critical care time was exclusive of: Separately billable procedures and treating other patients and teaching time Critical care was necessary to treat or prevent imminent or life-threatening deterioration of the following conditions: Metabolic crisis Critical care was time spent personally by vt ont following activities: Development of treatment plan with patient or surrogate, discussions withconsultants, evaluation of patient's response to treatment, examination of patient, obtaining history from patient or surrogate, ordering and performing treatments and interventions, ordering and review of laboratory studies, ordering and review of radiographic studies, pulse oximetry, re-evaluation of patient's condition and review of old charts Román 'yes' if you are taking over critical care for this patient from another provider.: no Comments: Pt with COVID-19 infection, full personal protective equipment utilized for all evaluation and re-evaluations requiring > 60 min clinical care time; pt has acute hyponatremia, dehydration, worsening weakness and is thus admitted; ct pe perfored r/o pe; ivf replacement, kcl replacementMatteson MethodistECG 12 [id number] 18:48:20 Test Item Value Reference Range Interpretation Comments Ventricular rate 95 (test code = 253) Atrial rate (test 95 code = 255) WV interval (test 142 code = 266) QRSD interval (test 86 code = 260) QT interval (test 446 code = 264) QTC interval (test 560 code = 265) P axis 1 (test code = 53 267) QRS axis 1 (test code -20 = 268) T wave axis (test 26 code = 270) EKG impression (test ^^^ Poor data quality, code = 273) interpretation may be adversely affected-Normal sinus rhythm-Possible Left atrial enlargement-Left ventricular hypertrophy-Marked ST abnormality, possible lateral subendocardial injury-Abnormal ECG-No previous ECGs available- [place] [facility] Chest 1 Vw [id number] 16:43:48Hm Interface, Radiology Results Incoming - 08/01/2020 4:46 PM CST EXAMINATION: XR CHEST 1 VW PORTABLECLINICAL HISTORY: eval for covid pnaCOMPARISON: NoneIMPRESSION:The heart is normal in appearance. Very minimal increased density is present bilaterally, most marked in the left lung base. Findings are nonspecific for Covid pneumonia.Thereis no evidence of pleural effusion, or pneumothorax.[id number]
[2020-10-16] MEDS ORDERED: ONDANSETRON 4 MG/2 ML VIAL ONE (13:12)
[2020-10-16] MEDS ORDERED: MORPHINE 2 MG/ML SYR ONE (13:12)
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
--- NOTE | 2020-10-16 13:34 | RAD REPORT ---
EXAM DESCRIPTION: RAD - Shoulder Right 2 View - 10/16/2020 1:21 pm CLINICAL HISTORY: Right shoulder pain FINDINGS: No acute fracture or dislocation is seen. Old traumatic changes suspected.
--- NOTE | 2020-10-16 13:36 | RAD REPORT ---
EXAM DESCRIPTION: RAD - Elbow Right 3 View - 10/16/2020 1:23 pm CLINICAL HISTORY: Elbow pain FINDINGS: A bony density which lies adjacent to medial epicondyle probably is chronic rather than ac inaja given that a significant joint effusion is not visualized. This should be correlated clinically. No dislocation
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
[2020-10-16 17:23] VITALS: TEMP 98.1
[2020-10-16 17:26] VITALS: BP 124/62; O2SAT 100
== END 2020-10-16 14:39 | disposition home or self-care (01) ==
LOC: ER 11:43
DX: S29.012A Strain of muscle and tendon of back wall of thorax, initial encounter (principal); S50.01XA Contusion of right elbow, initial encounter; E11.9 Type 2 diabetes mellitus without complications; I10 Essential (primary) hypertension; E03.9 Hypothyroidism, unspecified; V49.50XA Passenger injured in collision with unspecified motor vehicles in traffic accident, initial encounter
CPT/HCPCS: 82565; 70450; 72125; 71260; 74177; 73080; 73030; 96375; 96374; 99285; Q9967; J2270; J2405

== ENCOUNTER 2022-09-30 09:12 | Emergency (ER) | payer BC, MEDICARE ==
--- OUTSIDE RECORDS SUMMARY | 2022-09-30 09:18 | XMS REPORT | Continuity of Care Document ---
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 (ATROVENT) 3-04 Inhalation ity of 0.02 % 20:12: , Q6HPRN, [place] nebulizer 12 Starting Medica l solution [facility] 07/25/20 Branc h 0.5 mg at 1412, Until Discontinu ed, Routine, Wheezing, Shortness of Breath benzonatate 2020-0 Yes 200mg 200 mg, Un dante (TESSALON 3-04 Oral, Q8H, ity of PERLES) 20:00: First dose [place] capsule 200 00 on [facility] mg 07/25/20 at Branch 1400, Until Discontinu ed, Routine albuterol Yes 2.5mg 2.5 mg, Univ ers (PROVENTIL) 07-25 Inhalation it y of 2.5 mg /3 19:03: , Q6HPRN, [place] as mL (0.083 16 Starting Medica l %) [facility] 07/25/20 [place] nebulizer at 1303, solution Until 2.5 mg Discontinu ed, Routine, Shortness of Breath, Wheezing ondansetron Yes 4mg 4 mg, Slow Univers (ZOFRAN 07-25 IV Push, ity of (PF)) 18:57: Q6HPRN, [place] injection 4 33 Starting Medi jose francisco mg [facility] 07/25/20 Branch at 1257, Until Discontinu ed, Routine, Nausea and Vomiting (N/V) acetaminoph 2020- No 650mg 650 mg, U nivers en 07-25 0305 Oral, ity of (TYLENOL) 18:57: 15:40 Q6HPRN, [place] tablet 650 26 :39 Starting Medic al mg [facility] 07/25/20 Branch at 1257, Until 07/26/20 at 0940, Routine, Pain (scale 1-3) acetaminoph 2020- No 650mg 650 mg, U nivers en 07-2504 Oral, ity of (TYLENOL) 17:00: 15:55 ONCE, 1 [place] tablet 650 00 :00 dose, [facility] Medi jose francisco mg 07/25/20 at Branch 1100, LIAM iohexol 2020- No 100mL 100 mL, Unive rs (OMNIPAQUE 07-25 Intravenou it y of 350 13:15: 13:15 s, ONCE, 1 [place] BULK-100 00 :00 dose, [facility] Medica l mL) 07/25/20 at Branch injection 0715, 100 mL Routine Lidocaine Lidocaine 2019-05 No 10mg Com mon 03 [facility] 00:00: - [facility] 00 [facility] Celestone Celestone 2019-05 No 6mg Com mon Soluspan Soluspan 05-26 [facility] (Betamethas (Betamethas 00:00: - CHI one) one) 00 [facility] Lidocaine Lidocaine 2020-1 No 10mg Com 05-26 [facility] 00:00: - [facility] 00 [facility] Celestone Celestone 2020-1 No 6mg Com mon Soluspan Soluspan 05-26 [facility] (Betamethas (Betamethas 00:00: - CHI one) one) 00 [facility] Lidocaine Lidocaine 2020-1 No 10mg Com 05-26 [facility] 00:00: - [facility] 00 [facility] Celestone Celestone 2020-1 No 6mg Com mon Soluspan Soluspan 05-26 [facility] (Betamethas (Betamethas 00:00: - CHI one) one) 00 [facility] Lidocaine Lidocaine 2020-1 No 10mg Com 05-26 [facility] 00:00: - [facility] 00 [facility] Celestone Celestone 2020-1 No 6mg Com mon Soluspan Soluspan 05-26 [facility] (Betamethas (Betamethas 00:00: - CHI one) one) 00 [facility] Lidocaine Lidocaine 2020-1 No 10mg Com 05-26 [facility] 00:00: - [facility] 00 [facility] Celestone Celestone 2020-1 No 6mg Com mon Soluspan Soluspan 05-26 [facility] (Betamethas (Betamethas 00:00: - CHI one) one) 00 [facility] Lidocaine Lidocaine 2020-1 No 10mg Com 05-26 [facility] 00:00: - [facility] 00 [facility] Celestone Celestone 2020-1 No 6mg Com mon Soluspan Soluspan - [facility] (Betamethas (Betamethas 00:00: - CHI one) one) 00 [facility] Lidocaine Lidocaine 2020-1 No 10mg Com 05-26 [facility] 00:00: - [facility] 00 [facility] Celestone Celestone 2020-1 No 6mg Com mon Soluspan Soluspan - [facility] (Betamethas (Betamethas 00:00: - CHI one) one) 00 [facility] Lidocaine Lidocaine 2020-1 No 10mg Com 05-26 [facility] 00:00: - [facility] 00 [facility] Celestone Celestone 2020-1 No 6mg Com mon Soluspan Soluspan 1-03 [facility] (Betamethas (Betamethas 00:00: - CHI one) one) 00 [facility] Lidocaine Lidocaine 2020-1 No 10mg Com mon - [facility] 00:00: - [facility] 00 [facility] Celestone Celestone 2020-1 No 6mg Com mon Soluspan Soluspan -03 [facility] (Betamethas (Betamethas 00:00: - CHI one) one) 00 [facility] Lidocaine Lidocaine 2020-1 No 10mg Com mon 05-26 [facility] 00:00: - [facility] 00 [facility] Celestone Celestone 2020-1 No 6mg Com mon Soluspan Soluspan -03 [facility] (Betamethas (Betamethas 00:00: - CHI one) one) 00 [facility] Lidocaine Lidocaine 2020-1 No 10mg Com mon 05-26 [facility] 00:00: - [facility] 00 [facility] Celestone Celestone 2020-1 No 6mg Com mon Soluspan Soluspan -03 [facility] (Betamethas (Betamethas 00:00: - CHI one) one) 00 [facility] Lidocaine Lidocaine 2020-1 No 10mg Com mon 0-20 [facility] 00:00: - [facility] 00 [facility] Celestone Celestone 2020-1 No 6mg Com mon Soluspan Soluspan 0-20 [facility] (Betamethas (Betamethas 00:00: - CHI one) one) 00 [facility] Lidocaine Lidocaine 2020-1 No 10mg Com mon 0-20 [facility] 00:00: - [facility] 00 [facility] Celestone Celestone 2020-1 No 6mg Com mon Soluspan Soluspan 0-20 [facility] (Betamethas (Betamethas 00:00: - CHI one) one) 00 [facility] Lidocaine Lidocaine 2020-1 No 10mg Com mon 0-20 [facility] 00:00: - [facility] 00 [facility] Celestone Celestone 2020-1 No 6mg Com mon Soluspan Soluspan 0-20 [facility] (Betamethas (Betamethas 00:00: - CHI one) one) 00 [facility] Lidocaine Lidocaine 2020-1 No 10mg Com mon 0-20 [facility] 00:00: - [facility] 00 [facility] Celestone Celestone 2020-1 No 6mg Com mon Soluspan Soluspan 0-20 [facility] (Betamethas (Betamethas 00:00: - CHI one) one) 00 [facility] Lidocaine Lidocaine 2020-1 No 10mg Com mon 0-20 [facility] 00:00: - [facility] 00 [facility] Celestone Celestone 2020-1 No 6mg Com mon Soluspan Soluspan 0-20 [facility] (Betamethas (Betamethas 00:00: - CHI one) one) 00 [facility] Lidocaine Lidocaine 2020-1 No 10mg Com mon 0-20 [facility] 00:00: - [facility] 00 [facility] Celestone Celestone 2020-1 No 6mg Com mon Soluspan Soluspan 0-20 [facility] (Betamethas (Betamethas 00:00: - CHI one) one) 00 [facility] Lidocaine Lidocaine 2020-1 No 10mg Com mon 0-20 [facility] 00:00: - [facility] 00 [facility] Celestone Celestone 2020-1 No 6mg Com mon Soluspan Soluspan 0-20 [facility] (Betamethas (Betamethas 00:00: - CHI one) one) 00 [facility] Lidocaine Lidocaine 2020-1 No 10mg Com mon 0-20 [facility] 00:00: - [facility] 00 [facility] Celestone Celestone 2020-1 No 6mg Com mon Soluspan Soluspan 0-20 [facility] (Betamethas (Betamethas 00:00: - CHI one) one) 00 [facility] Lidocaine Lidocaine 2020-1 No 10mg Com mon 0-20 [facility] 00:00: - [facility] 00 [facility] Celestone Celestone 2020-1 No 6mg Com mon Soluspan Soluspan 0-20 [facility] (Betamethas (Betamethas 00:00: - CHI one) one) 00 [facility] Lidocaine Lidocaine 2020-1 No 10mg Com mon 0-20 [facility] 00:00: - [facility]I 00 [facility] Celestone Celestone 2020-1 No 6mg Com mon Soluspan Soluspan 0-20 [facility] (Betamethas (Betamethas 00:00: - CHI one) one) 00 [facility] Lidocaine Lidocaine 2020-1 No 10mg Com mon 0-20 [facility] 00:00: - [facility] 00 [facility] Celestone Celestone 2020- No 6mg Com mon Soluspan Soluspan 0-20 [facility] (Betamethas (Betamethas 00:00: - CHI one) one) 00 [facility] glipiZIDE glipiZIDE No glipiZIDE ER 5 MG ER 5 MG ER 5 MG IBUPROFEN IBUPROFEN No IBUPROFEN Estrace 0.1 Estrace 0.1 No Estrace MG/GM MG/GM 0.1 MG/GM hydroCHLORO hydroCHLORO No 1{table QD hydroCHLOR thiazide 25 thiazide 25 t_in_th Othiazide MG MG e_morni 25 MG ng} Zetia 10 MG Zetia 10 MG No 1{table QD Zetia 10 t} MG glipiZIDE glipiZIDE No glipiZIDE ER 5 MG ER 5 MG ER 5 MG IBUPROFEN IBUPROFEN No IBUPROFEN Estrace 0.1 Estrace 0.1 No Estrace MG/GM MG/GM 0.1 MG/GM hydroCHLORO hydroCHLORO No 1{table QD hydroCHLOR thiazide 25 thiazide 25 t_in_th Othiazide MG MG e_morni 25 MG ng} Omeprazole Omeprazole No QD Omeprazole 40 MG 40 MG 40 MG Levothyroxi Levothyroxi No QD Levothyrox ne Sodium ne Sodium ine Sodium 75 MCG 75 MCG 75 MCG Zetia 10 MG Zetia 10 MG No 1{table QD Zetia 10 t} MG hydroCHLORO hydroCHLORO No 1{table QD hydroCHLOR thiazide 25 thiazide 25 t_in_th Othiazide MG MG e_morni 25 MG ng} Estrace 0.1 Estrace 0.1 No Estrace MG/GM MG/GM 0.1 MG/GM IBUPROFEN IBUPROFEN No IBUPROFEN Zetia 10 MG Zetia 10 MG No 1{table QD Zetia 10 t} MG glipiZIDE glipiZIDE No glipiZIDE ER 5 MG ER 5 MG ER 5 MG Levothyroxi Levothyroxi No QD Levothyrox ne Sodium ne Sodium ine Sodium 75 MCG 75 MCG 75 MCG Omeprazole Omeprazole No QD Omeprazole 40 MG 40 MG 40 MG Zetia 10 MG Zetia 10 MG No 1{table QD Zetia 10 t} MG Zetia 10 MG Zetia 10 MG No 1{table QD Zetia 10 t} MG Levothyroxi Levothyroxi No QD Levothyrox ne Sodium ne Sodium ine Sodium 75 MCG 75 MCG 75 MCG hydroCHLORO hydroCHLORO No 1{table QD hydroCHLOR thiazide 25 thiazide 25 t_in_th Othiazide MG MG e_morni 25 MG ng} IBUPROFEN IBUPROFEN No IBUPROFEN Omeprazole Omeprazole No QD Omeprazole 40 MG 40 MG 40 MG Zetia 10 MG Zetia 10 MG No 1{table QD Zetia 10 t} MG Levothyroxi Levothyroxi No QD Levothyrox ne Sodium ne Sodium ine Sodium 75 MCG 75 MCG 75 MCG hydroCHLORO hydroCHLORO No 1{table QD hydroCHLOR thiazide 25 thiazide 25 t_in_th Othiazide MG MG e_morni 25 MG ng} IBUPROFEN IBUPROFEN No IBUPROFEN Omeprazole Omeprazole No QD Omeprazole 40 MG 40 MG 40 MG Omeprazole Omeprazole No QD Omeprazole 40 MG 40 MG 40 MG IBUPROFEN IBUPROFEN No IBUPROFEN hydroCHLORO hydroCHLORO No 1{table QD hydroCHLOR thiazide 25 thiazide 25 t_in_th Othiazide MG MG e_morni 25 MG ng} Levothyroxi Levothyroxi No QD Levothyrox ne Sodium ne Sodium ine Sodium 75 MCG 75 MCG 75 MCG Zetia 10 MG Zetia 10 MG No 1{table QD Zetia 10 t} MG IBUPROFEN IBUPROFEN No IBUPROFEN Levothyroxi Levothyroxi No QD Levothyrox ne Sodium ne Sodium ine Sodium 75 MCG 75 MCG 75 MCG Omeprazole Omeprazole No QD Omeprazole 40 MG 40 MG 40 MG Fluticasone Fluticasone No 1{spray QD Fluticason Propionate Propionate _in_eac e 50 MCG/ACT 50 MCG/ACT h_nostr Propionate il} 50 MCG/ACT hydroCHLORO hydroCHLORO No 1{table QD hydroCHLOR thiazide 25 thiazide 25 t_in_th Othiazide MG MG e_morni 25 MG ng} Zetia 10 MG Zetia 10 MG No 1{table QD Zetia 10 t} MG IBUPROFEN IBUPROFEN No IBUPROFEN Levothyroxi Levothyroxi No QD Levothyrox ne Sodium ne Sodium ine Sodium 75 MCG 75 MCG 75 MCG Omeprazole Omeprazole No QD Omeprazole 40 MG 40 MG 40 MG Fluticasone Fluticasone No 1{spray QD Fluticason Propionate Propionate _in_eac e 50 MCG/ACT 50 MCG/ACT h_nostr Propionate il} 50 MCG/ACT hydroCHLORO hydroCHLORO No 1{table QD hydroCHLOR thiazide 25 thiazide 25 t_in_th Othiazide MG MG e_morni 25 MG ng} Zetia 10 MG Zetia 10 MG No 1{table QD Zetia 10 t} MG hydroCHLORO hydroCHLORO No 1{table QD hydroCHLOR thiazide 25 thiazide 25 t_in_th Othiazide MG MG e_morni 25 MG ng} Zetia 10 MG Zetia 10 MG No 1{table QD Zetia 10 t} MG IBUPROFEN IBUPROFEN No IBUPROFEN Fluticasone Fluticasone No 1{spray QD Fluticason Propionate Propionate _in_eac e 50 MCG/ACT 50 MCG/ACT h_nostr Propionate il} 50 MCG/ACT Omeprazole Omeprazole No QD Omeprazole 40 MG 40 MG 40 MG Levothyroxi Levothyroxi No QD Levothyrox ne Sodium ne Sodium ine Sodium 75 MCG 75 MCG 75 MCG Zetia 10 MG Zetia 10 MG No 1{table QD Zetia 10 t} MG Levothyroxi Levothyroxi No QD Levothyrox ne Sodium ne Sodium ine Sodium 75 MCG 75 MCG 75 MCG Fluticasone Fluticasone No 1{spray QD Fluticason Propionate Propionate _in_eac e 50 MCG/ACT 50 MCG/ACT h_nostr Propionate il} 50 MCG/ACT Omeprazole Omeprazole No QD Omeprazole 40 MG 40 MG 40 MG hydroCHLORO hydroCHLORO No 1{table QD hydroCHLOR thiazide 25 thiazide 25 t_in_th Othiazide MG MG e_morni 25 MG ng} IBUPROFEN IBUPROFEN No IBUPROFEN Zetia 10 MG Zetia 10 MG No 1{table QD Zetia 10 t} MG IBUPROFEN IBUPROFEN No IBUPROFEN Fluticasone Fluticasone No 1{spray QD Fluticason Propionate Propionate _in_eac e 50 MCG/ACT 50 MCG/ACT h_nostr Propionate il} 50 MCG/ACT Omeprazole Omeprazole No QD Omeprazole 40 MG 40 MG 40 MG hydroCHLORO hydroCHLORO No 1{table QD hydroCHLOR thiazide 25 thiazide 25 t_in_th Othiazide MG MG e_morni 25 MG ng} Levothyroxi Levothyroxi No QD Levothyrox ne Sodium ne Sodium ine Sodium 75 MCG 75 MCG 75 MCG Levothyroxi Levothyroxi No QD Levothyrox ne Sodium ne Sodium ine Sodium 75 MCG 75 MCG 75 MCG IBUPROFEN IBUPROFEN No IBUPROFEN Omeprazole Omeprazole No QD Omeprazole 40 MG 40 MG 40 MG Zetia 10 MG Zetia 10 MG No 1{table QD Zetia 10 t} MG Macrobid Macrobid No BID Macrobid 100 MG 100 MG 100 MG Fluticasone Fluticasone No 1{spray QD Fluticason Propionate Propionate _in_eac e 50 MCG/ACT 50 MCG/ACT h_nostr Propionate il} 50 MCG/ACT hydroCHLORO hydroCHLORO No 1{table QD hydroCHLOR thiazide 25 thiazide 25 t_in_th Othiazide MG MG e_morni 25 MG ng} hydroCHLORO hydroCHLORO No 1{table QD hydroCHLOR thiazide 25 thiazide 25 t_in_th Othiazide MG MG e_morni 25 MG ng} Macrobid Macrobid No BID Macrobid 100 MG 100 MG 100 MG Fluticasone Fluticasone No 1{spray QD Fluticason Propionate Propionate _in_eac e 50 MCG/ACT 50 MCG/ACT h_nostr Propionate il} 50 MCG/ACT Omeprazole Omeprazole No QD Omeprazole 40 MG 40 MG 40 MG IBUPROFEN IBUPROFEN No IBUPROFEN Levothyroxi Levothyroxi No QD Levothyrox ne Sodium ne Sodium ine Sodium 75 MCG 75 MCG 75 MCG Zetia 10 MG Zetia 10 MG No 1{table QD Zetia 10 t} MG Zetia 10 MG Zetia 10 MG No 1{table QD Zetia 10 t} MG Zetia 10 MG Zetia 10 MG No 1{table QD Zetia 10 t} MG Omeprazole Omeprazole No QD Omeprazole 40 MG 40 MG 40 MG Levothyroxi Levothyroxi No QD Levothyrox ne Sodium ne Sodium ine Sodium 75 MCG 75 MCG 75 MCG Immunizations Ordered Immunization Filled Immunization Date Status Commen ts Source Name Name Pneumovax (PPSV23) Pneumovax (PPSV23) 2022-03-31 [facility]pleted [facility]:23[facility]00 [facility] Pneumovax (PPSV23) Pneumovax (PPSV23) 2022-03-31 [facility]pleted [facility] 13:23:00 [facility] Pneumovax (PPSV23) Pneumovax (PPSV23) 2022-03-31 [facility]pleted [facility] 13:23:00 [facility] Pneumovax (PPSV23) Pneumovax (PPSV23) 2022-03-31 Completed [facility] 13:23:00 [facility] Lidocaine Lidocaine 2020-03-26 Completed [facility] 15:05:00 - [facility] Celestone Soluspan Celestone Soluspan 2020-03-26 Completed [facility] (Betamethasone) (Betamethasone) 15:04:00 - [facility] Lidocaine Lidocaine 2020-03-12 Completed [facility] 14:27:00 - [facility] Celestone Soluspan Celestone Soluspan 2020-03-12 Completed [facility] (Betamethasone) (Betamethasone) 14:26:00 - [facility] Adacel (Tdap) Adacel (Tdap) 2018-09-06 Completed [facility] 09:19:00 [facility] Adacel (Tdap) Adacel (Tdap) 2018-09-06 Completed [facility] 09:19:00 - [facility] Adacel (Tdap) Adacel (Tdap) 2018-09-06 Completed [facility] 09:19:00 - [facility] Adacel (Tdap) Adacel (Tdap) 2018-09-06 Completed [facility] 09:19:00 [facility] Adacel (Tdap) Adacel (Tdap) 2018-09-06 Completed [facility] 09:19:00 - [facility] Adacel (Tdap) Adacel (Tdap) 2018-09-06 Completed [facility] 09:19:00 - [facility] Adacel (Tdap) Adacel (Tdap) 2018-09-06 Completed [facility] 09:19:00 [facility] Adacel (Tdap) Adacel (Tdap) 2018-09-06 Completed [facility] 09:19:00 [facility] Adacel (Tdap) Adacel (Tdap) 2018-09-06 Completed [facility] 09:19:00 [facility] Adacel (Tdap) Adacel (Tdap) 2018-09-06 Completed [facility] 09:19:00 - [facility] Adacel (Tdap) Adacel (Tdap) 2018-09-06 Completed [facility] 09:19:00 - [facility] Adacel (Tdap) Adacel (Tdap) 2018-09-06 Completed [facility] 09:19:00 - [facility] Adacel (Tdap) Adacel (Tdap) 2018-09-06 Completed [facility] 09:19:00 - [facility] Vital Signs Vital Name Observation Time Observation Value Comments Source height 2022-06-29 13:20:00 65 [in_i] [facility] weight 2022-06-29 13:20:00 187.8 [lb_av] [facility] temperature 2022-06-29 13:20:00 97.3 [degF] [facility] bmi 2022-06-29 13:20:00 31.25 kg/m2 [facility] oximetry 2022-06-29 13:20:00 97 % [facility] respiratory rate 2022-06-29 13:20:00 17 /min Comm on [facility] blood pressure 2022-06-29 13:20:00 135 mm[Hg] Common [facility] - systolic [facility] blood pressure 2022-06-29 13:20:00 70 mm[Hg] Common [facility] diastolic [facility] height 2022-06-05 15:40:00 65 [in_i] [facility] weight 2022-06-05 15:40:00 189.7 [lb_av] [facility] temperature 2022-06-05 15:40:00 97.9 [degF] Common [facility] bmi 2022-06-05 15:40:00 31.56 kg/m2 [facility] oximetry 2022-06-05 15:40:00 99 % [facility] respiratory rate 2022-06-05 15:40:00 17 /min Comm on [facility] blood pressure 2022-06-05 15:40:00 138 mm[Hg] Common [facility] - systolic [facility] blood pressure 2022-06-05 15:40:00 70 mm[Hg] [facility] - diastolic [facility] height 2022-03-31 13:00:00 65 [in_i] [facility] weight 2022-03-31 13:00:00 187.3 [lb_av] Common [facility] - [facility] temperature 2022-03-31 13:00:00 97.3 [degF] [facility] bmi 2022-03-31 13:00:00 31.16 kg/m2 [facility] oximetry 2022-03-31 13:00:00 97 % [facility] respiratory rate 2022-03-31 13:00:00 17 /min Comm on [facility] blood pressure 2022-03-31 13:00:00 122 mm[Hg] Common [facility] - systolic [facility] blood pressure 2022-03-31 13:00:00 57 mm[Hg] [facility] - diastolic [facility] height 2022-03-16 09:40:00 65 [in_i] [facility] weight 2022-03-16 09:40:00 180 [lb_av] [facility] temperature 2022-03-16 09:40:00 98 [degF] [facility] [place] [facility] bmi 2022-03-16 09:40:00 29.95 kg/m2 [facility] blood pressure 2022-03-16 09:40:00 130 mm[Hg] [facility] - systolic [facility] blood pressure 2022-03-16 09:40:00 65 mm[Hg] [facility] - diastolic [facility] height 2021-12-18 09:40:00 65 [in_i] [facility] weight 2021-12-18 09:40:00 188 [lb_av] [facility] temperature 2021-12-18 09:40:00 97.6 [degF] [facility] bmi 2021-12-18 09:40:00 31.28 kg/m2 [facility] oximetry 2021-12-18 09:40:00 98 % [facility] respiratory rate 2021-12-18 09:40:00 16 /min Comm on [facility] blood pressure 2021-12-18 09:40:00 132 mm[Hg] Common [facility] - systolic [facility] blood pressure 2021-12-18 09:40:00 67 mm[Hg] [facility] diastolic [facility] Systolic blood 2021-11-04 15:41:00 152 mm[Hg] Univer [facility]ity [facility] Diastolic blood 2021-11-04 15:41:00 76 mm[Hg] Unive [facility] Heart rate 2021-11-04 15:41:00 85 /min [facility] Body temperature 2021-11-04 15:41:[address] [facility] Respiratory rate 2021-11-04 15:41:00 18 /min [facility] Body height 2021-11-04 15:41:00 162.6 cm [facility] Body weight 2021-11-04 15:41:00 87.091 kg [facility] BMI 2021-11-04 15:41:00 32.96 kg/m2 [facility] Oxygen saturation in 2021-11-04 15:41:00 95 /min [facility] Arterial blood by [facility] Pulse oximetry Branch height 2021-09-17 08:50:00 68 [in_i] [facility] weight 2021-09-17 08:50:00 187.9 [lb_av] Common [facility] temperature 2021-09-17 08:50:00 97.5 [degF] [facility] bmi 2021-09-17 08:50:00 28.57 kg/m2 [facility] oximetry 2021-09-17 08:50:00 98 % [facility] respiratory rate 2021-09-17 08:50:00 18 /min Comm on [facility] blood pressure 2021-09-17 08:50:00 136 mm[Hg] Common [facility] - systolic [facility] blood pressure 2021-09-17 08:50:00 72 mm[Hg] Common [facility] - diastolic [facility] height 2021-06-18 09:40:00 68 [in_i] [facility] [place] [facility] weight 2021-06-18 09:40:00 189.2 [lb_av] [facility] temperature 2021-06-18 09:40:00 98.1 [degF] [facility] bmi 2021-06-18 09:40:00 28.76 kg/m2 [facility] oximetry 2021-06-18 09:40:00 98 % [facility] respiratory rate 2021-06-18 09:40:00 18 /min Comm on [facility] blood pressure 2021-06-18 09:40:00 134 mm[Hg] Common [facility] systolic [facility] blood pressure 2021-06-18 09:40:00 63 mm[Hg] [facility] diastolic [facility] height 2021-03-17 09:20:00 68 [in_i] [facility] [place] [facility] weight 2021-03-17 09:20:00 191.2 [lb_av] [facility] temperature 2021-03-17 09:20:00 97.4 [degF] [facility] bmi 2021-03-17 09:20:00 29.07 kg/m2 [facility] oximetry 2021-03-17 09:20:00 96 % [facility] respiratory rate 2021-03-17 09:20:00 17 /min Comm on [facility] blood pressure 2021-03-17 09:20:00 133 mm[Hg] [facility] - systolic [facility] blood pressure 2021-03-17 09:20:00 62 mm[Hg] [facility] - diastolic [facility] Systolic blood 2020-07-30 17:37:00 162 mm[Hg] Univer sity of [facility] Diastolic blood 2020-07-30 17:37:00 79 mm[Hg] Unive rsity of pressure [facility] Heart rate 2020-07-30 17:37:00 80 /min [facility] Respiratory rate 2020-07-30 17:37:00 22 /min [facility] Oxygen saturation in 2020-07-30 17:37:00 90 /min [facility] Arterial blood by [facility] Pulse oximetry Branch Body temperature 2020-07-30 14:35:00 36.78 Cori [facility] Body weight 2020-07-29 01:30:00 83.5 kg [facility] BMI 2020-07-29 01:30:00 31.60 kg/m2 [facility] Body height 2020-07-25 20:00:00 162.6 cm [facility] Systolic blood 2020-07-30 17:37:00 162 mm[Hg] Univer sity of pressure [facility] Diastolic blood 2020-07-30 17:37:00 79 mm[Hg] Unive rsity of pressure [facility] Heart rate 2020-07-30 17:37:00 80 /min [facility] Respiratory rate 2020-07-30 17:37:00 22 /min [facility] Oxygen saturation in 2020-07-30 17:37:00 90 /min [facility] Arterial blood by [place] [employer] jose francisco Pulse oximetry Branch Body temperature 2020-07-30 14:35:00 36.78 Cori [facility] Body weight 2020-07-29 01:30:00 83.5 kg [facility] BMI 2020-07-29 01:30:00 31.60 kg/m2 [facility] [place] [facility] Branch Body height 2020-07-25 20:00:00 162.6 cm [facility] Systolic blood 2020-08-05 18:50:19 147 mm[Hg] [facility] Diastolic blood 2020-08-05 18:50:19 70 mm[Hg] [facility] pressure Heart rate 2020-08-05 18:50:19 76 /min [facility] Body temperature 2020-08-05 18:50:19 36.33 Cori [facility] Respiratory rate 2020-08-05 18:50:19 19 /min [facility] Oxygen saturation in 2020-08-05 18:50:19 96 /min [facility] Arterial blood by Pulse oximetry Body height 2020-08-05 00:59:00 162.6 cm [facility] Body weight 2020-08-02 03:00:06 83.462 kg [facility] BMI 2020-08-02 03:00:06 31.58 kg/m2 [facility] Procedures Procedure Date / Time Performing Clinician Source Performed XR WRIST 3+ VW RIGHT 2021-11-04 16:00:[address] [facility] NOTICE OF PRIVACY 2021-11-04 15:40:41 Doctor Unassigned, No [facility] PRACTICES Name [facility] CONSENT/REFUSAL FOR 2021-11-04 15:36:07 [facility]AT[facility] Name [facility] EXTERNAL PROVIDER 2020-09-16 05:01:00 Doctor Unassigned, No [facility] RECORDS Name [facility] POC GLUCOSE 2020-08-05 17:32:00 Kurtis Marmolejo spital POC GLUCOSE 2020-08-05 13:17:00 Kurtis Marmolejo spital HC COMPLETE BLD COUNT 2020-08-05 08:46:[address] [facility] W/AUTO DIFF COMPREHENSIVE METABOLIC 2020-08-05 08:46:00 [facility] 2020-08-05 08:46:00 Romy Cook spital POC GLUCOSE 2020-08-05 02:10:00 Kurtis Marmolejo spital POC GLUCOSE 2020-08-04 22:21:00 Jaleel, Umar [facility] spital US DUPLEX VENOUS LOWER 2020-08-04 20:00:00 [facility]REM[facility] POC GLUCOSE 2020-08-04 16:53:00 JaleelKurtis Ho spital POC GLUCOSE 2020-08-04 12:44:00 JaleelKurtis Ho spital HC COMPLETE BLD COUNT 2020-08-04 09:30:00 Cook [facility] W/AUTO DIFF COMPREHENSIVE METABOLIC 2020-08-04 09:30:00 [facility] PANEL ESTIMATED GFR 2020-08-04 09:30:00 Romy Cook Ho spital POC GLUCOSE 2020-08-04 02:17:00 JaleelKurtis Ho spital URINE CULTURE 2020-08-04 00:30:00 [facility] Imarendene URINALYSIS SCREEN AND 2020-08-04 00:30:00 [facility] MICROSCOPY, WITH REFLEX Imarendenewe TO CULTURE POC GLUCOSE 2020-08-03 22:36:00 JaleelKurtis Ho spital POC GLUCOSE 2020-08-03 17:17:00 JaleelKurtis Ho spital POC GLUCOSE 2020-08-03 13:19:00 Joey Romy [place] spital HC COMPLETE BLD COUNT 2020-08-03 11:00:00 Joey [facility] W/AUTO DIFF COMPREHENSIVE METABOLIC 2020-08-03 11:00:00 [facility] PANEL ESTIMATED GFR 2020-08-03 11:00:00 Cook, Romy [place] spital POC GLUCOSE 2020-08-03 03:12:00 Joey Romy [place] Ho spital POC GLUCOSE 2020-08-02 22:45:00 Joey Romy [place] Ho spital HC COMPLETE BLD COUNT 2020-08-02 18:51:00 [facility] W/AUTO DIFF LACTIC ACID LEVEL 2020-08-02 18:51:00 [facility] ESTIMATED GFR 2020-08-02 18:51:00 Romy Cook spital COMPREHENSIVE METABOLIC 2020-08-02 18:51:00 Cook, [facility] PANEL POC GLUCOSE 2020-08-02 17:22:[facility] 2020-08-02 13:35:00 Romy Cook [facility] spital BASIC METABOLIC PANEL 2020-08-02 11:21:00 [facility] Imarendenewe ESTIMATED GFR 2020-08-02 11:21:00 [facility] Imarendene LACTIC ACID LEVEL, 2020-08-02 04:46:00 [facility] SEPSIS - NOW AND REPEAT Imarendenewe 2X EVERY 3 HOURS TROPONIN 2020-08-02 04:46:00 [facility] Imarendenewe POC GLUCOSE 2020-08-02 03:01:00 [facility] [place] CRITICAL CARE, E/M 2020-08-02 02:52:45 [facility] 30-74 MINUTES ECG ED PRELIMINARY 2020-08-02 02:52:45 [facility] INTERPRETATION CT ANGIOGRAM PE CHEST 2020-08-02 02:49:20 [facility] XR CHEST 1 VW PORTABLE 2020-08-01 22:36:43 [facility] ECG 12-LEAD 2020-08-01 22:13:56 [facility] RESPIRATORY PATHOGEN 2020-08-01 21:30:00 [facility] PANEL WITH COVID-19 RT-PCR HC COMPLETE BLD COUNT 2020-08-01 21:30:00 [facility] W/AUTO DIFF PROTHROMBIN TIME WITH 2020-08-01 21:30:00 [facility] INR PARTIAL THROMBOPLASTIN 2020-08-01 21:30:00 [facility] TIME (PTT) COMPREHENSIVE METABOLIC 2020-08-01 21:30:00 [facility] PANEL MAGNESIUM LEVEL 2020-08-01 21:30:00 [facility] LACTIC ACID LEVEL, 2020-08-01 21:30:00 [facility] SEPSIS - NOW AND REPEAT Imarendenewe 2X EVERY 3 HOURS CREATINE KINASE, TOTAL 2020-08-01 21:30:00 [facility] (CPK) TROPONIN 2020-08-01 21:30:00 [facility] Imarendenewe B NATRIURETIC PEPTIDE 2020-08-01 21:30:00 [facility] D-DIMER 2020-08-01 21:30:00 [facility] LIPASE LEVEL 2020-08-01 21:30:00 [facility] AMYLASE LEVEL 2020-08-01 21:30:00 [facility] ESTIMATED GFR 2020-08-01 21:30:00 [facility] BLOOD CULTURE, AEROBIC & 2020-08-01 20:31:00 [facility] ANAEROBIC BLOOD CULTURE, AEROBIC & 2020-08-01 20:30:00 [facility] ANAEROBIC POCT GLUCOSE (AUTOMATED) 2020-07-30 17:39:00 [facility]SE (AUTOMATED) 2020-07-30 14:36:00 [facility] BASIC METABOLIC PANEL 2020-07-30 10:30:00 Luis Gonzalez [facility] [place] (NA, K, CL, CO2, Medical Branch GLUCOSE, BUN, CREATININE, CA) CBC WITH DIFF 2020-07-30 10:30:00 Luis Gonzalez [facility] POCT GLUCOSE (AUTOMATED) 2020-07-30 02:04:00 [facility]aine [facility] POCT GLUCOSE (AUTOMATED) 2020-07-29 22:26:00 Romaine Osborn Un iversity of [facility] POCT GLUCOSE (AUTOMATED) 2020-07-29 18:52:00 Romaine Osborn Un iversity of [facility] XR CHEST 1 VW 2020-07-29 15:02:50 [facility] POCT GLUCOSE (AUTOMATED) 2020-07-29 14:07:00 Romaine Osborn Un iversity of [facility] MAGNESIUM 2020-07-29 09:33:00 Carlos [facility] BASIC METABOLIC PANEL 2020-07-29 09:33:00 Luis [facility] [place] (NA, K, CL, CO2, Medical Branch GLUCOSE, BUN, CREATININE, CA) CBC WITH DIFF 2020-07-29 09:33:00 [facility] D-DIMER 2020-07-29 09:33:00 [facility] POCT GLUCOSE (AUTOMATED) 2020-07-29 05:29:00 Romaine Osborn Un iversity of [facility] POCT GLUCOSE (AUTOMATED) 2020-07-29 01:30:00 Romaine Osborn Un iversity of [facility] POCT GLUCOSE (AUTOMATED) 2020-07-28 22:32:00 Romaine Osborn Un iversity [facility] D-DIMER 2020-07-28 18:25:00 [facility] POCT GLUCOSE (AUTOMATED) 2020-07-28 18:04:00 Romaine Osborn Un iversity of [facility] POCT GLUCOSE (AUTOMATED) 2020-07-28 13:38:00 Romaine Osborn Un iversity [facility] HEPATIC FUNCTION PANEL 2020-07-28 11:21:00 Luis [facility] ([id number] (ALB,T.PRO,BILI Medical Branch T,BU/BC,ALT,AST,ALK PHOS) BASIC METABOLIC PANEL 2020-07-28 11:21:00 Luis Gonzalez [facility] [place] (NA, K, CL, CO2, Medical Branch GLUCOSE, BUN, CREATININE, CA) CBC WITH DIFF 2020-07-28 11:21:00 Luis Gonzalez [facility] POCT GLUCOSE (AUTOMATED) 2020-07-28 06:27:00 Romaine Osborn Un iversity of [facility] POCT GLUCOSE (AUTOMATED) 2020-07-28 01:49:00 Romaine Osborn Un iversity of [facility] POCT GLUCOSE (AUTOMATED) 2020-07-27 23:03:00 Romaine Osborn Un iversity of [facility] POCT GLUCOSE (AUTOMATED) 2020-07-27 17:33:00 Romaine Osborn Un iversity of [facility] POCT GLUCOSE (AUTOMATED) 2020-07-27 14:06:00 Romaine Osborn Un iversity of [facility] HEPATIC FUNCTION PANEL 2020-07-27 10:20:00 Luis [facility] ([id number] (ALB,T.PRO,BILI Medical Branch T,BU/BC,ALT,AST,ALK PHOS) BASIC METABOLIC PANEL 2020-07-27 10:20:00 Luis Gonzalez [facility] [place] (NA, K, CL, CO2, Medical Branch GLUCOSE, BUN, CREATININE, CA) CBC WITH DIFF 2020-07-27 10:20:00 Luis Gonzalez [facility] POCT GLUCOSE (AUTOMATED) 2020-07-27 03:19:00 Romaine Osborn Un [facility] POCT GLUCOSE (AUTOMATED) 2020-07-26 23:25:00 Romaine Osborn Un [facility] POCT GLUCOSE (AUTOMATED) 2020-07-26 17:56:00 Romaine Osborn Un iversity of [facility] Branch XR CHEST 1 VW 2020-07-26 15:53:00 [facility] POCT GLUCOSE (AUTOMATED) 2020-07-26 13:53:00 Romaine Osborn Un i[facility]ity of [facility] HEPATIC FUNCTION PANEL 2020-07-26 10:35:00 Luis Gonzalez [facility] ([id number]) (ALB,T.PRO,BILI Medical Branch T,BU/BC,ALT,AST,ALK PHOS) BASIC METABOLIC PANEL 2020-07-26 10:35:00 Luis Gonzalez [facility] (NA, K, CL, CO2, Medical Branch GLUCOSE, BUN, CREATININE, CA) CBC WITH DIFF 2020-07-26 10:35:00 [facility] PO[facility]SE (AUTOMATED) 2020-07-26 02:21:00 Romaine Osborn [facility] POCT GLUCOSE (AUTOMATED) 2020-07-25 22:22:00 Romaine Osborn [facility] COVID-19 (ID NOW RAPID 2020-07-25 19:54:00 Luis Gonzalez [facility] TESTING) Medical Branch LAB ONLY COVID 2020-07-25 19:54:00 [facility] C-REACTIVE PROTEIN 2020-07-25 19:51:00 Carlos [facility] PROCALCITONIN 2020-07-25 19:51:00 [facility] PULMONARY 2020-07-25 13:03:09 Paulo Carreno [facility] ANGIOGRAM [facility] [place] BLOOD CULTURE SCREEN 2020-07-25 11:34:00 Paulo Carreno [facility] LACTATE DEHYDROGENASE 2020-07-25 11:00:00 Paulo Carreno [facility] FERRITIN SERUM 2020-07-25 11:00:00 Paulo Carreno [facility] COMP. METABOLIC PANEL 2020-07-25 11:00:00 Paulo [facility] ([id number]) [facility] [place] CBC WITH DIFF 2020-07-25 11:00:00 Paulo Carreno [facility] GLYCOSYLATED HEMOGLOBIN 2020-07-25 11:00:00 [facility] Branch PROTHROMBIN TIME / INR 2020-07-25 11:00:[address] [facility] D-DIMER 2020-07-25 11:00:00 Paulo Carrneo [facility] HB ECG ROUTINE & RHYTHM 2020-07-25 10:59:05 Paulo [facility]o [facility] NOTICE OF PRIVACY 2020-07-25 10:56:12 Doctor Unassigned, No [facility] PRACTICES Name Medical Branch CONSENT/REFUSAL FOR 2020-07-25 10:55:47 Doctor Unassigned, No [facility] [place] DIAGNOSIS AND TREATMENT Name Medical Branch CONSENT/REFUSAL FOR 2020-07-25 10:54:57 Doctor Unassigned, No [facility]REAT[facility] Name Medical Branch AGREEMENTS 2020-07-25 06:01:00 Doctor Unassigned, No [facility] AUTHORIZATIONS AND Name Medical [facility] IRREVOCABLE ASSIGNMENTS (FORM 2000) Plan of Care Planned Activity Planned Date Details Comments Source Future Scheduled 2022-09-20 COVID-19 VACCINE (#1) Me [facility] Test 21:44:05 [code = COVID-19 VACCINE (#1)] Future Scheduled 2022-09-20 Hepatitis C screening [facility] Test 21:44:05 (procedure) [code = 599385741] Future Scheduled 2022-09-20 [facility] for [facility] Test 21:44:05 malignant neoplasm of cervix (procedure) [code = 557863993] Future Scheduled 2022-09-20 BREAST CANCER [facility] Test 21:44:05 SCREENING [code = BREAST CANCER SCREENING] Future Scheduled 2022-09-20 COLONOSCOPY SCREENING Me [facility] Test 21:44:05 [code = COLONOSCOPY SCREENING] Future Scheduled 2022-09-20 SHINGLES VACCINES (1 Met [facility] Test 21:44:05 of 2) [code = SHINGLES VACCINES (1 of 2)] Future Scheduled 2022-09-20 HEPATITIS B VACCINES Met [facility] Test 21:44:05 (1 of 3 - Risk 3-dose series) [code = HEPATITIS B VACCINES (1 of 3 - Risk 3-dose series)] Future Scheduled 2022-09-20 65+ [facility]CCAL [facility] Test 21:44:05 VACCINE (1 - PCV) [code = 65+ PNEUMOCOCCAL VACCINE (1 - PCV)] Future Scheduled 2022-09-20 INFLUENZA VACCINE [facility] Hospital Test 21:44:05 [code = INFLUENZA VACCINE] Future Scheduled 2021-06-05 COVID-19 VACCINE (1) Met [facility] Test 12:27:26 [code = COVID-19 VACCINE (1)] Future Scheduled 2021-06-05 Hepatitis C screening [facility] Test 12:27:26 (procedure) [code = 341552901] Future Scheduled 2021-06-05 Screening for [facility] Test 12:27:26 malignant neoplasm of cervix (procedure) [code = 088144469] Future Scheduled 2021-06-05 BREAST CANCER [facility] Test 12:27:26 SCREENING [code = BREAST CANCER SCREENING] Future Scheduled 2021-06-05 COLONOSCOPY SCREENING [facility] Test 12:27:26 [code = COLONOSCOPY SCREENING] Future Scheduled 2021-06-05 SHINGLES VACCINES (#1) [facility] Test 12:27:26 [code = SHINGLES VACCINES (#1)] Future Scheduled 2021-06-05 INFLUENZA VACCINE Method [facility] Test 12:27:26 [code = INFLUENZA VACCINE] Encounters Start End Encounter Admission Attending Care Care Encounter Source Date/Time Date/Time Type Type Clinicians Facility Department ID 2022-09-21 Outpatient Cook, [facility] [id number] Common 09:47:00 [place] [address] [facility] 2022-09-15 Outpatient Cook, [facility] [id number] Common 08:05:00 [place] [address] [facility] 2022-06-29 Outpatient Cook, [facility] [id number] Common 16:05:00 [place] [address] [facility] 2022-06-05 Outpatient Cook, [facility] [id number] Common 16:15:00 [place] [address] [facility] 2022-03-30 Outpatient Cook, [facility] [id number] Common 08:10:00 [place] [address] [facility] 2022-03-16 Outpatient Cook, STLMLC STLMLC [id number] Common 09:46:00 [place] [facility] 2022-03-13 Outpatient Cook, STLMLC STLMLC [id number] Common 08:24:00 [place] [facility] 2021-12-18 Outpatient Cook, STLMLC STLMLC [id number] Common 09:33:00 [place] [facility] 2021-12-16 Outpatient Cook, STLMLC STLMLC [id number] Common 09:46:00 [place] [facility] 2021-06-18 Outpatient Cook, STLMLC STLMLC [id number] Common 14:39:59 [place] [facility] 2021-06-18 Outpatient Cook, STLMLC STLMLC [id number] Common 13:29:55 [place] [facility] 2021-06-18 Outpatient Cook, STLMLC STLMLC [id number] Common 13:28:30 [place] [address] [facility] 2021-06-18 Outpatient Cook, STLMLC STLMLC [id number] Common 12:55:37 [place] [facility] 2021-06-18 Outpatient Cook, STLMLC STLMLC [id number] Common 12:45:50 [place] [facility] 2021-06-18 Outpatient Cook, STLMLC STLMLC [id number] Common 12:45:23 [place] [address] [facility] 2021-06-18 Outpatient Cook, STLMLC STLMLC [id number] Common 12:43:30 [place] [address] [facility] 2021-06-18 Outpatient Cook, STLMLC STLMLC [id number] Common 12:42:24 [place] [address] [facility] 2021-06-18 Outpatient Cook, STLMLC STLMLC [id number] Common 12:38:29 [place] [address] [facility] 2021-06-18 Outpatient Cook, STLMLC STLMLC [id number] Common 12:32:02 [place] [address] [facility] 2021-06-18 Outpatient Cook, STLMLC STLMLC [id number] Common 12:25:17 [place] [address] [facility] 2021-06-18 Outpatient Cook, STLMLC STLMLC [id number] Common 12:02:04 [place] [address] [facility] 2021-06-18 Outpatient Cook, STLMLC STLMLC [id number] Common 11:59:50 [place] [address] [facility] 2021-06-18 Outpatient Cook, STLMLC STLMLC [id number] Common 11:57:05 [place] [address] [facility] 2021-06-18 Outpatient Cook, STLMLC STLMLC [id number] Common 11:56:26 [place] [address] [facility] 2021-06-18 Outpatient Cook, STLMLC STLMLC [id number] Common 11:55:15 [place] [address] [facility] 2021-06-18 Outpatient Cook, STLMLC STLMLC [id number] Common 11:32:37 [place] [address] [facility] 2021-06-18 Outpatient Cook, STLMLC STLMLC [id number] Common 11:31:52 [place] [address] [facility] 2021-06-18 Outpatient Cook, STLMLC STLMLC [id number] Common 11:19:08 [place] [address] [facility] 2021-06-18 Outpatient Cook, STLMLC STLMLC [id number] Common 11:18:46 [place] [address] [facility] 2021-06-18 Outpatient Cook, STLMLC STLMLC [id number] Common 11:17:21 [place] [address] [facility] 2021-06-18 Outpatient Cook, STLMLC STLMLC [id number] Common 11:13:43 [place] [address] [facility] 2021-06-18 Outpatient Cook, STLMLC STLMLC [id number] Common 11:08:50 [facility] [address] [facility] 2022-09-29 2022-09-29 Outpatient Fages_C [facility] 00:00:00 00:00:00 [id number] [facility] 2022-09-25 2022-09-25 Outpatient [facility] 00:00:00 00:00:00 [id number] [facility] 2022-07-30 2022-07-30 Outpatient [facility] 00:00:00 00:00:00 [id number] [facility] 2022-06-29 2022-06-29 OFFICE STLMLC STLMLC [id number] Co mmon 00:00:00 00:00:00 VISIT Spirit ESTAB PT - CHI LEVEL 3 [facility] 2022-06-05 2022-06-05 OFFICE STLMLC STLMLC [id number] Co mmon 00:00:00 00:00:00 VISIT EST Spir it PT LEVEL 3 - [facility] 2022-06-04 2022-06-04 (TEL) STLMLC STLMLC [id number] Co mmon 00:00:00 00:00:00 [facility] 2022-03-31 2022-03-31 OFFICE STLMLC STLMLC [id number] Co mmon 00:00:00 00:00:00 VISIT Spirit [facility] PT - CHI LEVEL 4 [facility] 2022-03-16 2022-03-16 (TEL) STLMLC STLMLC [id number] Co mmon 00:00:00 00:00:00 [facility] 2022-03-16 2022-03-16 OFFICE STLMLC STLMLC [id number] Co mmon 00:00:00 00:00:00 VISIT EST Spir it PT LEVEL 3 - [facility] 2022-03-16 2022-03-16 (TEL) STLMLC STLMLC [id number] Co mmon 00:00:00 00:00:00 [facility] 2022-03-12 2022-03-12 (TEL) STLMLC STLMLC [id number] Co mmon 00:00:00 00:00:00 [facility] 2022-02-25 2022-02-25 (TEL) STLMLC STLMLC [id number] Co mmon 00:00:00 00:00:00 [facility] 2021-12-18 2021-12-18 PREV VISIT STLMLC STLMLC [id number] Common 00:00:00 00:00:00 EST AGE Spirit 40-64 - [facility] 2021-11-04 2021-11-04 Emergency [facility] [id number] Univers 10:42:00 11:33:00 MINOO ity of [facility] 2021-11-04 2021-11-04 Emergency [facility] [id number] Univers 10:42:00 11:33:00 Minoo MCGUIRE [id number] ity of [place] [id number] [facility] [id number] [facility] 084 Branch 2021-11-04 2021-11-04 Orders Doctor SHASTA 1.2.840.114 [id number] Univers 00:00:00 00:00:00 Only Unassigned, PALLAVI [id number] ity of [facility] [id number] [facility] [phone] [facility] 009 Branch 2021-09-17 2021-09-17 OFFICE STLMLC STLMLC [id number] Co mmon 00:00:00 00:00:00 VISIT EST Spir it PT LEVEL 3 [facility] 2021-06-18 2021-06-18 OFFICE STLMLC STLMLC [id number] Co mmon 00:00:00 00:00:00 VISIT EST Spir it PT LEVEL 3 [facility] 2021-03-17 2021-03-17 OFFICE STLMLC STLMLC [id number] Co mmon 00:00:00 00:00:00 VISIT EST Spir it PT LEVEL 3 [facility] 2021-02-20 2021-02-20 Patient Nikos Varghese [id number] Univers 00:00:00 00:00:00 Outreach Coleen E Carrillo [id number] [id number] [id number] [facility] 403 Branch 2021-02-14 2021-02-14 Patient Bernice Stafford 1.2.840.114 [id number] Univers 00:00:00 00:00:00 Outreach E Carrillo [id number] [place] [id number] [facility] 403 Branch 2021-02-14 2021-02-14 Patient Nikos Varghese 1.2.840.114 [id number] Univers 00:00:00 00:00:00 Outreach Coleen E Carrillo [id number] [place] [id number] [facility] 403 Branch 2020-12-16 2020-12-16 Outpatient STLMLC STLMLC [id number] Common 00:00:00 00:00:00 [facility] 2020-12-09 2020-12-09 Outpatient COH COH PENFGVM ZMZ COH 00:00:00 00:00:00 [id number] 2020-09-19 2020-09-19 Outpatient STLMLC STLMLC [id number] Common 00:00:00 00:00:00 [facility] 2020-09-16 2020-09-16 Outpatient STLMLC STLMLC [id number] Common 00:00:00 00:00:00 [facility] 2020-09-16 2020-09-16 Orders Doctor VEGAS 1.2.840.114 [id number] Univers 00:00:00 00:00:00 Only Unassigned, PALLAVI [id number] [facility] 4.2.7.2.686 Timo as [phone] [facility] 009 Branch 2020-09-16 2020-09-16 Orders Doctor SHASTA 1.2.840.114 [id number] 00:00:00 00:00:00 Only Unassigned, PALLAVI [id number] [facility] 4.2.7.2.686 [id number] [id number] 2020-09-12 2020-09-12 Refill Gonzalez, [facility] 1.2.840.114 [id number] Univers 00:00:00 00:00:00 Christopher PRIMARY [id number] ity of CARE 4.2.7.2.686 Nati rivera TIMI [id number] Nh dical 388 Branch 2020-09-12 2020-09-12 Refill Gonzalez, [facility] 1.2.840.114 [id number] 98 00:00:00 00:00:00 Christopher PRIMARY [id number] CARE [id number] P[facility]ILLION [id number] 388 2020-08-26 2020-08-26 Outpatient STLMLC STLMLC [id number] Common 00:00:00 00:00:00 [facility] 2020-08-22 2020-08-22 Outpatient STLMLC STLMLC [id number] Common 00:00:00 00:00:00 [facility] 2020-08-20 2020-08-20 Outpatient STLMLC STLMLC [id number] Common 00:00:00 00:00:00 [facility] 2020-08-14 2020-08-14 Outpatient STLMLC STLMLC [id number] Common 00:00:00 00:00:00 [facility] 2020-08-14 2020-08-14 Outpatient STLMLC STLMLC [id number] Common 00:00:00 00:00:00 [facility] 2020-08-13 2020-08-13 Outpatient STLMLC STLMLC [id number] Common 00:00:00 00:00:00 [facility] 2020-08-12 2020-08-12 Outpatient STLMLC STLMLC [id number] Common 00:00:00 00:00:00 [facility] 2020-08-08 2020-08-08 Patient Bernice Stafford 1.2.840.114 [id number] Univers 00:00:00 00:00:00 Outreach E Carrillo [id number] [place] [id number] [facility] 403 Branch 2020-08-08 2020-08-08 Patient Bernice Stafford Nikos 1.2.840.114 [id number] 00:00:00 00:00:00 Outreach E Carrillo [id number] [place] 4.2.7.2.686 [id number] 2020-08-01 2020-08-05 [facility] 1.2.840.1 [id number] Methodi 14:46:00 14:12:00 Encounter Romy Cook [id number] [facility] 3.430.2.7 Hos delphine .[id number] l .8 2020-07-31 2020-07-31 [facility] [id number] Common 00:00:00 00:00:00 [facility] 2020-07-31 2020-07-31 Transition Nikos Solis [id number] Univers 00:00:00 00:00:00 of Care Adalgisa Carrillo [id number] [id number] [address] [place] 2020-07-31 2020-07-31 Transition Nikos Solis [id number] Univers 00:00:00 00:00:00 of Care Adalgisa Carrillo [id number] [id number] [address] [place] 2020-07-31 2020-07-31 Transition Nikos Solis 1.2.840.114 [id number] 00:00:00 00:00:00 of Care Adalgisa Carrillo [id number] [place] 4.2.7.2.686 [id number] 2020-07-31 2020-07-31 Transition Nikos Solis 1.2.840.114 [id number] 00:00:00 00:00:00 of Care Adalgisa Carrillo 350.1.13.10 [place] 4.2.7.2.686 [id number] 2020-07-25 2020-07-30 Inpatient U [facility] [id number] [facility] 04:52:00 18:00:00 SHARON, ity [facility] 2020-07-25 2020[facility]07-30 [facility] 114 [id number] [facility] 04:52:00 18:00:00 [facility]counter [facility]13.10 [facility] [id number] [address] 2020-07-25 2020-07-30 [facility] 1.2.840. 114 [id number] 04:52:00 18:00:00 Encounter Romaine Osborn Pallavi 350.1.13.10 [facility] 4.2.7.2. 686 [id number] 2020-07-29 2020-07-29 Outpatient STLMLC STLMLC [id number] Common 00:00:00 00:00:00 [facility] 2020-06-18 2020-06-18 Outpatient STLMLC STLMLC [id number] Common 00:00:00 00:00:00 [facility] 2020-03-26 2020-03-26 Outpatient STLMLC STLMLC [id number] Common 00:00:00 00:00:00 [facility] 2020-03-21 2020-03-21 Outpatient STLMLC STLMLC [id number] Common 00:00:00 00:00:00 [facility] 2020-03-12 2020-03-12 Outpatient STLMLC STLMLC [id number] Common 00:00:00 00:00:00 [facility] Results Test Description Test Time Test Comments Results Result Comments Source Urine Culture,Comprehensive 2022-06-05 00:00:00 Test Item Value Reference Range Interpretation Comme nts Urine Culture,Comprehensive (test code = 630-4) Final report A Urine [id number] 00:53:02 Test Item Value Reference Range Interpretation Comments Urine culture (test SEE COMMENT Bacteriu fernando screen code = 4120961) negative. [facility] ED Preliminary Interpretation - Not an [id number] 02:52:45 Test Item Value Reference Range Interpretation Comments JUAN MANUEL (test code = JUAN MANUEL) Unruly Negrete MD 08/21/2020 3:22 [facility] Preliminary Interpretation - Not an OrderPerformed by: Unruly Negrete MDAuthorized by: Unruly Negrete MD ECG reviewed by ED Physician in the absence of a construction engineering manager: yes Interpretation: Interpretation: abnormal Rate: ECG rate: 95 ECG rate assessment: normal Rhythm: Rhythm: sinus rhythm QRS: QRS axis: Normal QRS intervals: NormalConduction: Conduction: normal ST segments: ST segments: Abnormal Depression: V5, V6, aVL and IOther findings: Other findings: LAE and LVH Lab Interpretation Abnormal (test code = 11404-6) [facility] 12 [id number] 00:48:20 Test Item Value Reference Range Interpretation Comments Ventricular rate (test code = 253) Atrial rate (test code = 255) NV interval (test code = 266) QRSD interval (test code = 260) QT interval (test code = 264) QTC interval (test code = 265) P axis 1 (test code = 267) QRS axis 1 (test code = 268) T wave axis (test code = 270) EKG impression (test ^^^ Poor data quality, code = 273) interpretation may be adversely affected-Normal sinus rhythm-Possible Left atrial enlargement-Left ventricular hypertrophy-Marked ST abnormality, possible lateral subendocardial injury-Abnormal ECG-No previous ECGs available- [facility] GLUCOSE (AUTOMATED)2020-07-30 17:43:13 Test Item Value Reference Range Interpretation Comments POCT GLU (test code = 5277397057) 204 mg/dL 70-110 H Lab Interpretation (test code = Abnormal 73481-3) [facility] GLUCOSE (AUTOMATED)2020-07-30 14:40:43 Test Item Value Reference Range Interpretation Comments POCT GLU (test code = 1467630989) 131 mg/dL 70-110 H Lab Interpretation (test code = Abnormal 01334-7) [facility] CULTURE [id number] 12:01:16 Test Item Value Reference Range Interpretation Comments Blood Culture-Aerobic No organisms No growth Previo us (test code = 42959-0) isolated prelim inary verified result was Culture In Progress on 07/25/2020 at 090 1 CSTPrevious preliminary verified result was No growth a t 24 hours on 07/26/2020 at 060 1 CSTPrevious preliminary verified result was No growth a t 48 hours on 07/27/2020 at 060 1 CSTPrevious preliminary verified result was No growth a t 72 hours on 07/28/2020 at 060 1 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 Blood No organisms No growth Previous Culture-Anaerobic isolated preliminar y (test code = 08072-5) verifi ed result was Culture In Progress on 07/25/2020 at 090 1 CSTPrevious preliminary verified result was No growth a t 24 hours on 07/26/2020 at 060 1 CSTPrevious preliminary verified result was No growth a t 48 hours on 07/27/2020 at 060 1 CSTPrevious preliminary verified result was No growth a t 72 hours on 07/28/2020 at 060 1 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 Lab Interpretation Normal (test code = 88875-4) [facility] CULTURE [id number] 12:01:16 Test Item Value Reference Range Interpretation Comments Blood Culture-Aerobic No organisms No growth Previo us (test code = 34411-3) isolated prelim inary verified result was Culture In Progress on 07/25/2020 at 090 1 CSTPrevious preliminary verified result was No growth a t 24 hours on 07/26/2020 at 060 1 CSTPrevious preliminary verified result was No growth a t 48 hours on 07/27/2020 at 060 1 CSTPrevious preliminary verified result was No growth a t 72 hours on 07/28/2020 at 060 1 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 Blood No organisms No growth Previous Culture-Anaerobic isolated preliminar y (test code = 61747-3) verifi ed result was Culture In Progress on 07/25/2020 at 090 1 CSTPrevious preliminary verified result was No growth a t 24 hours on 07/26/2020 at 060 1 CSTPrevious preliminary verified result was No growth a t 48 hours on 07/27/2020 at 060 1 CSTPrevious preliminary verified result was No growth a t 72 hours on 07/28/2020 at 060 1 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 The reference range was not used to interpret this result as normal/abnormal . RBC (test code = See_Comment [Automated 789-8) message] The sy stem which generated this result transmitted reference range : 3.93 - 5.25 10*6/?L. The reference range was not used to interpret this result as normal/abnormal . HGB (test code = 14.1 g/dL 11.6-15.0 718-7) HCT (test code = 40.0 % 35.7-45.2 4544-3) MCV (test code = 85.7 fL 80.6-95.5 787-2) MCH (test code = 30.2 pg 25.9-32.8 785-6) MCHC (test code = 35.3 g/dL 31.6-35.1 H 786-4) RDW-SD (test code = 38.0 fL 39.0-49.9 L 54721-7) RDW-CV (test code = 12.2 % 12.0-15.5 788-0) PLT (test code = See_Comment [Automated 777-3) message] The sy stem which generated this result transmitted reference range : 166 - 358 10*3/ ?L. The reference r cori was not used to interpret this result as normal/abnormal . MPV (test code = 9.9 fL 9.5-12.9 34596-9) NRBC/100 WBC (test See_Comment [Automat ed code = 9269242124) message] The system which generated this result transmitted reference range : 0.0 - 10.0 /100 WBCs. The refer ence range was not u sed to interpret th is result as normal/abnormal . NRBC x10^3 (test code <0.01 See_Comment [Auto mated = 8262466184) message] The s ystem which generated this result transmitted reference range : 10*3/?L. The reference range was not used to interpret this result as normal/abnormal . GRAN MAT (NEUT) % 65.4 % (test code = 770-8) IMM GRAN % (test code 0.50 % = 5604253315) LYMPH % (test code = 28.9 % 736-9) MONO % (test code = 4.8 % 5905-5) EOS % (test code = 0.2 % 713-8) BASO % (test code = 0.2 % 706-2) GRAN MAT x10^3(ANC) 5.56 10*3/uL 1.88-7.09 (test code = 9129920876) IMM GRAN x10^3 (test 0.04 10*3/uL 0.00-0.06 code = 5447999329) LYMPH x10^3 (test code 2.46 10*3/uL 1.32-3.29 = 731-0) MONO x10^3 (test code 0.41 10*3/uL 0.33-0.92 = 742-7) EOS x10^3 (test code = <0.03 0.03-0.39 L 711-2) BASO x10^3 (test code <0.03 0.01-0.07 = 704-7) REACT LYMPHS (test Rare code = 8425143467) Lab Interpretation Abnormal (test code = 60667-8) [facility] METABOLIC PANEL (NA, K, CL, CO2, GLUCOSE, BUN, CREATININE, CA)2020-07-30 11:14:49 Test Item Value Reference Range Interpretation Comments NA (test code = 132 mmol/L 135-145 L 3529458719) K (test code = 3.2 mmol/L 3.5-5.0 L 9365932792) CL (test code = 94 mmol/L 98-108 L 6131515416) CO2 TOTAL (test code = 29 mmol/L 23-31 8657543883) AGAP (test code = 2-16 3097364656) BUN (test code = 19 mg/dL 7-23 8842175883) GLUCOSE (test code = 190 mg/dL 70-110 H 1438060848) CREATININE (test code = 0.52 mg/dL 0.50-1.04 6632740222) CALCIUM (test code = 8.6 mg/dL 8.6-10.6 5468747092) eGFR Calculation mL/min/1.73m2 (Non-) (test code = 6796758545) eGFR Calculation mL/min/1.73m2 () (test code = 3975626746) JUAN MANUEL (test code = JUAN MANUEL) Association of Glomerular Filtration Rate (GFR) and Staging of Kidney Disease* + --+ --+ ------+| GFR (mL/min/1.73 m2) ?| With Kidney Damage ?| ?Without Kidney Damage+ --------+ --------+ +| ?>90 ?| ?Stage one ?| ? Normal ?+ ---+ ---+ -------+| ?60-89 ?| ?Stage two ?| ? Decreased GFR ? + --+ --+ ------+| ?30-59 ?| ?Stage three ?| ? Stage three ? + --+ --+ ------+| ?15-29 ?| ?Stage four ? | ? Stage four ?+ ---+ ---+ -------+| ?<15 (or dialysis) ? ?| ?Stage five ? | ? Stage five ?+ ---+ ---+ -------+ *Each stage assumes the associated GFR level has been in effect for at least three months. ?Stages 1 to 5, with or without kidney disease, indicate chronic kidney disease. Notes: Determination of stages one and two (with eGFR >59mL/min/1.73 m2) requires estimation of kidney damage for at least three months as defined by structural or functional abnormalities of the kidney, manifested by either:Pathological abnormalities or Markers of kidney damage (including abnormalities in the composition of the blood or urine or abnormalities in imaging tests). Lab Interpretation Abnormal (test code = 29684-3) [facility] GLUCOSE (AUTOMATED)2020-07-30 02:10:13 Test Item Value Reference Range Interpretation Comments POCT GLU (test code = 1581409597) 350 mg/dL 70-110 H Lab Interpretation (test code = Abnormal 90468-7) [facility] GLUCOSE (AUTOMATED)2020-07-29 22:33:18 Test Item Value Reference Range Interpretation Comments POCT GLU (test code = 0842310662) 290 mg/dL 70-110 H Lab Interpretation (test code = Abnormal 34101-9) [facility] GLUCOSE (AUTOMATED)2020-07-29 18:56:53 Test Item Value Reference Range Interpretation Comments POCT GLU (test code = 4956285400) 166 mg/dL 70-110 H Lab Interpretation (test code = Abnormal 14212-0) [facility] [id number] 15:51:01EXAM: XR CHEST 1 VW HISTORY: sob COMPARISON: None. FINDINGS: The lungs remain congested but are slightly less so than noted previously.A basilar density on the left has more the appearance of pneumoniathanatelectasis. ? [facility], Radiant Results Inft User - 07/29/2020 9:52 AM CSTEXAM: XR CHEST 1 VWHISTORY: sob COMPARISON: None.FINDINGS:The lungs remain congested but are slightly less so than noted previously.A basilar density on the left has more the appearance of pneumonia thanatelectasis.[facility] GLUCOSE (AUTOMATED) 2020-07-29 14:22:36 Test Item Value Reference Range Interpretation Comments POCT GLU (test code = 1225911006) 152 mg/dL 70-110 H Lab Interpretation (test code = Abnormal 82825-4) [facility] 12:33:36 Test Item Value Reference Range Interpretation Comments MAGNESIUM (test code = 1524810639) 2.0 mg/dL 1.7-2.4 Lab Interpretation (test code = Normal 49408-6) [facility] (NA, K, CL, CO2, GLUCOSE, BUN, CREATININE, CA)2020-07-29 11:10:49 Test Item Value Reference Range Interpretation Comments NA (test code = 132 mmol/L 135-145 L 8837037831) K (test code = 3.2 mmol/L 3.5-5.0 L 6284073241) CL (test code = 94 mmol/L 98-108 L 3440721782) CO2 TOTAL (test code = 30 mmol/L 23-31 4903144532) AGAP (test code = 2-16 7296616169) BUN (test code = 17 mg/dL 7-23 5497774753) GLUCOSE (test code = 203 mg/dL 70-110 H 2524853396) CREATININE (test code = 0.56 mg/dL 0.50-1.04 9967609830) CALCIUM (test code = 8.8 mg/dL 8.6-10.6 1401393754) eGFR Calculation mL/min/1.73m2 (Non-) (test code = 1377655811) eGFR Calculation mL/min/1.73m2 () (test code = 2244006657) JUAN MANUEL (test code = JUAN MANULE) Association of Glomerular Filtration Rate (GFR) and Staging of Kidney Disease* + --+ --+ ------+| GFR (mL/min/1.73 m2) ?| With Kidney Damage ?| ?Without Kidney Damage+ --------+ --------+ +| ?>90 ?| ?Stage one ?| ? Normal ?+ ---+ ---+ -------+| ?60-89 ?| ?Stage two ?| ? Decreased GFR ? + --+ --+ ------+| ?30-59 ?| ?Stage three ?| ? Stage three ? + --+ --+ ------+| ?15-29 ?| ?Stage four ? | ? Stage four ?+ ---+ ---+ -------+| ?<15 (or dialysis) ? ?| ?Stage five ? | ? Stage five ?+ ---+ ---+ -------+ *Each stage assumes the associated GFR level has been in effect for at least three months. ?Stages 1 to 5, with or without kidney disease, indicate chronic kidney disease. Notes: Determination of stages one and two (with eGFR >59mL/min/1.73 m2) requires estimation of kidney damage for at least three months as defined by structural or functional abnormalities of the kidney, manifested by either:Pathological abnormalities or Markers of kidney damage (including abnormalities in the composition of the blood or urine or abnormalities in imaging tests). Lab Interpretation Abnormal (test code = 14292-1) [facility] WITH [id number] 10:31:54 Test Item Value Reference Range Interpretation Comments WBC (test code = See_Comment [Automated 6690-2) message] The sy stem which generated this result transmitted reference range : 4.30 - 11.10 10*3/?L. The reference range was not used to interpret this result as normal/abnormal . RBC (test code = See_Comment [Automated 789-8) message] The sy stem which generated this result transmitted reference range : 3.93 - 5.25 10*6/?L. The reference range was not used to interpret this result as normal/abnormal . HGB (test code = 13.6 g/dL 11.6-15.0 718-7) HCT (test code = 38.9 % 35.7-45.2 4544-3) MCV (test code = 86.8 fL 80.6-95.5 787-2) MCH (test code = 30.4 pg 25.9-32.8 785-6) MCHC (test code = 35.0 g/dL 31.6-35.1 786-4) RDW-SD (test code = 38.5 fL 39.0-49.9 L 40750-6) RDW-CV (test code = 12.0 % 12.0-15.5 788-0) PLT (test code = See_Comment [Automated 777-3) message] The sy stem which generated this result transmitted reference range : 166 - 358 10*3/ ?L. The reference r cori was not used to interpret this result as normal/abnormal . MPV (test code = 10.4 fL 9.5-12.9 65479-8) NRBC/100 WBC (test See_Comment [Automat ed code = 6937137550) message] The system which generated this result transmitted reference range : 0.0 - 10.0 /100 WBCs. The refer ence range was not u sed to interpret th is result as normal/abnormal . NRBC x10^3 (test code <0.01 See_Comment [Auto mated = 0556895773) message] The s ystem which generated this result transmitted reference range : 10*3/?L. The reference range was not used to interpret this result as normal/abnormal . GRAN MAT (NEUT) % 72.2 % (test code = 770-8) IMM GRAN % (test code 0.30 % = 9436363229) LYMPH % (test code = 23.0 % 736-9) MONO % (test code = 4.2 % 5905-5) EOS % (test code = 0.0 % 713-8) BASO % (test code = 0.3 % 706-2) GRAN MAT x10^3(ANC) 6.92 10*3/uL 1.88-7.09 (test code = 5891143848) IMM GRAN x10^3 (test 0.03 10*3/uL 0.00-0.06 code = 2301876074) LYMPH x10^3 (test code 2.20 10*3/uL 1.32-3.29 = 731-0) MONO x10^3 (test code 0.40 10*3/uL 0.33-0.92 = 742-7) EOS x10^3 (test code = <0.03 0.03-0.39 L 711-2) BASO x10^3 (test code 0.03 10*3/uL 0.01-0.07 = 704-7) REACT LYMPHS (test Rare code = 3434303521) Lab Interpretation Abnormal (test code = 85336-1) [id number] 10:05:00 Test Item Value Reference Interpretation Comments Range D-DIMER (test code = <0.21 See_Comment [Autom ated 6953808989) message] The system which generated this result transmitted reference range : <0.50 ?g/mL (FEU). The reference range was not used to interpret this result as normal/abnormal . JUAN MANUEL (test code = This test may be JUAN MANUEL) used in conjunction with a clinical pretest probability (PTP) assessment model to exclude venous thromboembolism (VTE) in patients suspected of deep venous thrombosis (DVT) and pulmonary embolism (PE) A D-Dimer value less than 0.50 ?g/ml (FEU) has a negative predicative value of 96 to 100% (95% CI)and 97 to 100% (95% CI) as an aid in the diagnosis of deep vein thrombosis (DVT) and pulmonary embolism when there is low or moderate pretest probability of PE or DVT. D-Dimer values are expressed in initial fibrinogen equivalent units (FEU)" The assay results should be used with other information, including the clinical context, in forming a diagnosis. Lab Interpretation Normal (test code = 35801-8) [facility] GLUCOSE (AUTOMATED)2020-07-29 05:30:17 Test Item Value Reference Range Interpretation Comments POCT GLU (test code = 1599788645) 248 mg/dL 70-110 H Lab Interpretation (test code = Abnormal 40265-2) [facility] GLUCOSE (AUTOMATED)2020-07-29 01:33:36 Test Item Value Reference Range Interpretation Comments POCT GLU (test code = 9028558074) 356 mg/dL 70-110 H Lab Interpretation (test code = Abnormal 60915-4) [facility] GLUCOSE (AUTOMATED)2020-07-28 22:52:08 Test Item Value Reference Range Interpretation Comments POCT GLU (test code = 9092862233) 345 mg/dL 70-110 H Lab Interpretation (test code = Abnormal 84361-0) [id number] 18:52:07 Test Item Value Reference Interpretation Comments Range D-DIMER (test code = See_Comment H [Autom ated 7773738494) message] The system which generated this result transmitted reference range : <0.50 ?g/mL (FEU). The reference range was not used to interpret this result as normal/abnormal . JUAN MANUEL (test code = This test may be JUAN MANUEL) used in conjunction with a clinical pretest probability (PTP) assessment model to exclude venous thromboembolism (VTE) in patients suspected of deep venous thrombosis (DVT) and pulmonary embolism (PE) A D-Dimer value less than 0.50 ?g/ml (FEU) has a negative predicative value of 96 to 100% (95% CI)and 97 to 100% (95% CI) as an aid in the diagnosis of deep vein thrombosis (DVT) and pulmonary embolism when there is low or moderate pretest probability of PE or DVT. D-Dimer values are expressed in initial fibrinogen equivalent units (FEU)" The assay results should be used with other information, including the clinical context, in forming a diagnosis. Lab Interpretation Abnormal (test code = 03290-9) [facility] GLUCOSE (AUTOMATED)2020-07-28 18:09:36 Test Item Value Reference Range Interpretation Comments POCT GLU (test code = 4874823550) 211 mg/dL 70-110 H Lab Interpretation (test code = Abnormal 13083-8) [facility]2020-07[facility]28 14:02:38 Test Item Value Reference Range Interpretation Comments POCT GLU (test code = 7258655002) 169 mg/dL 70-110 H Lab Interpretation (test code = Abnormal 55094-5) [facility] WITH [id number] 12:31:03 Test Item Value Reference Range Interpretation Comments WBC (test code = See_Comment H [Automated 6690-2) message] The sy stem which generated this result transmitted reference range : 4.30 - 11.10 10*3/?L. The reference range was not used to interpret this result as normal/abnormal . RBC (test code = See_Comment [Automated 789-8) message] The sy stem which generated this result transmitted reference range : 3.93 - 5.25 10*6/?L. The reference range was not used to interpret this result as normal/abnormal . HGB (test code = 13.3 g/dL 11.6-15.0 718-7) HCT (test code = 37.8 % 35.7-45.2 4544-3) MCV (test code = 86.1 fL 80.6-95.5 787-2) MCH (test code = 30.3 pg 25.9-32.8 785-6) MCHC (test code = 35.2 g/dL 31.6-35.1 H 786-4) RDW-SD (test code = 38.5 fL 39.0-49.9 L 72149-6) RDW-CV (test code = 12.3 % 12.0-15.5 788-0) PLT (test code = See_Comment [Automated 777-3) message] The sy stem which generated this result transmitted reference range : 166 - 358 10*3/ ?L. The reference r cori was not used to interpret this result as normal/abnormal . MPV (test code = 9.7 fL 9.5-12.9 39396-8) NRBC/100 WBC (test See_Comment [Automat ed code = 9245547692) message] The system which generated this result transmitted reference range : 0.0 - 10.0 /100 WBCs. The refer ence range was not u sed to interpret th is result as normal/abnormal . NRBC x10^3 (test code <0.01 See_Comment [Auto mated = 7214590313) message] The s ystem which generated this result transmitted reference range : 10*3/?L. The reference range was not used to interpret this result as normal/abnormal . GRAN MAT (NEUT) % 77.1 % (test code = 770-8) IMM GRAN % (test code 0.40 % = 3212195050) LYMPH % (test code = 17.7 % 736-9) MONO % (test code = 4.5 % 5905-5) EOS % (test code = 0.2 % 713-8) BASO % (test code = 0.1 % 706-2) GRAN MAT x10^3(ANC) 8.65 10*3/uL 1.88-7.09 H (test code = 1671402251) IMM GRAN x10^3 (test 0.04 10*3/uL 0.00-0.06 code = 8283287293) LYMPH x10^3 (test code 1.99 10*3/uL 1.32-3.29 = 731-0) MONO x10^3 (test code 0.51 10*3/uL 0.33-0.92 = 742-7) EOS x10^3 (test code = <0.03 0.03-0.39 L 711-2) BASO x10^3 (test code <0.03 0.01-0.07 = 704-7) REACT LYMPHS (test Rare code = 9410725644) Lab Interpretation Abnormal (test code = 61911-2) [facility] METABOLIC PANEL (NA, K, CL, CO2, GLUCOSE, BUN, CREATININE, CA)2020-07-28 12:12:12 Test Item Value Reference Range Interpretation Comments NA (test code = 133 mmol/L 135-145 L 7248060083) K (test code = 3.6 mmol/L 3.5-5.0 6951783065) CL (test code = 97 mmol/L 98-108 L 1948268157) CO2 TOTAL (test code = 28 mmol/L 23-31 1637239356) AGAP (test code = 2-16 7741889521) BUN (test code = 16 mg/dL 7-23 3120929068) GLUCOSE (test code = 177 mg/dL 70-110 H 8885834451) CREATININE (test code = 0.51 mg/dL 0.50-1.04 6459683397) CALCIUM (test code = 8.5 mg/dL 8.6-10.6 L 4966032306) eGFR Calculation mL/min/1.73m2 (Non-) (test code = 8798900925) eGFR Calculation mL/min/1.73m2 () (test code = 8236189661) JUAN MANUEL (test code = JUAN MANUEL) Association of Glomerular Filtration Rate (GFR) and Staging of Kidney Disease* + --+ --+ ------+| GFR (mL/min/1.73 m2) ?| With Kidney Damage ?| ?Without Kidney Damage+ --------+ --------+ +| ?>90 ?| ?Stage one ?| ? Normal ?+ ---+ ---+ -------+| ?60-89 ?| ?Stage two ?| ? Decreased GFR ? + --+ --+ ------+| ?30-59 ?| ?Stage three ?| ? Stage three ? + --+ --+ ------+| ?15-29 ?| ?Stage four ? | ? Stage four ?+ ---+ ---+ -------+| ?<15 (or dialysis) ? ?| ?Stage five ? | ? Stage five ?+ ---+ ---+ -------+ *Each stage assumes the associated GFR level has been in effect for at least three months. ?Stages 1 to 5, with or without kidney disease, indicate chronic kidney disease. Notes: Determination of stages one and two (with eGFR >59mL/min/1.73 m2) requires estimation of kidney damage for at least three months as defined by structural or functional abnormalities of the kidney, manifested by either:Pathological abnormalities or Markers of kidney damage (including abnormalities in the composition of the blood or urine or abnormalities in imaging tests). Lab Interpretation Abnormal (test code = 36369-5) [facility]98[facility] (ALB,T.PRO,BILI T,BU/BC,ALT,AST,ALK PHOS)2020-07-28 12:12:12 Test Item Value Reference Range Interpretation Comments TOTAL BILI (test code = 0491316802) 0.3 mg/dL 0.1-1.1 BILI UNCON (test code = 0098094340) 0.3 mg/dL 0.1-1.1 BILI CONJ (test code = 8190996724) 0.0 mg/dL 0.0-0.3 T PROTEIN (test code = 1444068054) 6.7 g/dL 6.3-8.2 ALBUMIN (test code = 1760835543) 3.5 g/dL 3.5-5.0 ALK PHOS (test code = 7146335274) 48 U/L 34-122 ALTv (test code = 1742-6) 51 U/L 5-35 H AST(SGOT) (test code = 2091551275) 37 U/L 13-40 Lab Interpretation (test code = Abnormal 88122-7) [facility] GLUCOSE (AUTOMATED)2020-07-28 06:33:37 Test Item Value Reference Range Interpretation Comments POCT GLU (test code = 9306263581) 233 mg/dL 70-110 H Lab Interpretation (test code = Abnormal 39794-0) [facility] GLUCOSE (AUTOMATED)2020-07-28 01:52:00 Test Item Value Reference Range Interpretation Comments POCT GLU (test code = 6067102373) 373 mg/dL 70-110 H Lab Interpretation (test code = Abnormal 06304-1) [facility] GLUCOSE (AUTOMATED)2020-07-27 23:38:00 Test Item Value Reference Range Interpretation Comments POCT GLU (test code = 4855287081) 289 mg/dL 70-110 H Lab Interpretation (test code = Abnormal 93962-0) [facility] GLUCOSE (AUTOMATED)2020-07-27 18:16:00 Test Item Value Reference Range Interpretation Comments POCT GLU (test code = 7288315555) 276 mg/dL 70-110 H Lab Interpretation (test code = Abnormal 37277-5) [facility] GLUCOSE (AUTOMATED)2020-07-27 14:57:00 Test Item Value Reference Range Interpretation Comments POCT GLU (test code = 2464007855) 226 mg/dL 70-110 H Lab Interpretation (test code = Abnormal 17274-7) [facility] (NA, K, CL, CO2, GLUCOSE, BUN, CREATININE, CA)2020-07-27 11:20:00 Test Item Value Reference Range Interpretation Comments NA (test code = 133 mmol/L 135-145 L 7992534703) K (test code = 3.4 mmol/L 3.5-5.0 L 4281953673) CL (test code = 95 mmol/L 98-108 L 6743105052) CO2 TOTAL (test code = 30 mmol/L 23-31 8312991049) AGAP (test code = 2-16 5576040637) BUN (test code = 16 mg/dL 7-23 1097206178) GLUCOSE (test code = 242 mg/dL 70-110 H 0235729795) CREATININE (test code = 0.48 mg/dL 0.50-1.04 L 1686622193) CALCIUM (test code = 8.4 mg/dL 8.6-10.6 L 7759345046) eGFR Calculation mL/min/1.73m2 (Non-) (test code = 0011117998) eGFR Calculation mL/min/1.73m2 () (test code = 0030966847) JUAN MANUEL (test code = JUAN MANUEL) Association of Glomerular Filtration Rate (GFR) and Staging of Kidney Disease* + --+ --+ ------+| GFR (mL/min/1.73 m2) ?| With Kidney Damage ?| ?Without Kidney Damage+ --------+ --------+ +| ?>90 ?| ?Stage one ?| ? Normal ?+ ---+ ---+ -------+| ?60-89 ?| ?Stage two ?| ? Decreased GFR ? + --+ --+ ------+| ?30-59 ?| ?Stage three ?| ? Stage three ? + --+ --+ ------+| ?15-29 ?| ?Stage four ? | ? Stage four ?+ ---+ ---+ -------+| ?<15 (or dialysis) ? ?| ?Stage five ? | ? Stage five ?+ ---+ ---+ -------+ *Each stage assumes the associated GFR level has been in effect for at least three months. ?Stages 1 to 5, with or without kidney disease, indicate chronic kidney disease. Notes: Determination of stages one and two (with eGFR >59mL/min/1.73 m2) requires estimation of kidney damage for at least three months as defined by structural or functional abnormalities of the kidney, manifested by either:Pathological abnormalities or Markers of kidney damage (including abnormalities in the composition of the blood or urine or abnormalities in imaging tests). Lab Interpretation Abnormal (test code = 03491-0) [facility][id number][facility] (ALB,T.PRO,BILI T,BU/BC,ALT,AST,ALK PHOS)2020-07-27 11:20:00 Test Item Value Reference Range Interpretation Comments TOTAL BILI (test code = 6437558750) 0.4 mg/dL 0.1-1.1 BILI UNCON (test code = 9414142131) 0.4 mg/dL 0.1-1.1 BILI CONJ (test code = 2288710861) 0.0 mg/dL 0.0-0.3 T PROTEIN (test code = 9482563934) 6.6 g/dL 6.3-8.2 ALBUMIN (test code = 9005465746) 3.6 g/dL 3.5-5.0 ALK PHOS (test code = 4414011080) 50 U/L 34-122 ALTv (test code = 1742-6) 68 U/L 5-35 H AST(SGOT) (test code = 6073278720) 53 U/L 13-40 H Lab Interpretation (test code = Abnormal 41184-9) [facility] WITH [id number] 10:38:00 Test Item Value Reference Range Interpretation Comments WBC (test code = See_Comment [Automated 7026-2) message] The sy stem which generated this result transmitted reference range : 4.30 - 11.10 10*3/?L. The reference range was not used to interpret this result as normal/abnormal . RBC (test code = See_Comment [Automated 385-8) message] The sy stem which generated this result transmitted reference range : 3.93 - 5.25 10*6/?L. The reference range was not used to interpret this result as normal/abnormal . HGB (test code = 13.2 g/dL 11.6-15.0 718-7) HCT (test code = 37.9 % 35.7-45.2 4544-3) MCV (test code = 86.7 fL 80.6-95.5 787-2) MCH (test code = 30.2 pg 25.9-32.8 785-6) MCHC (test code = 34.8 g/dL 31.6-35.1 786-4) RDW-SD (test code = 38.8 fL 39.0-49.9 L 14698-3) RDW-CV (test code = 12.2 % 12.0-15.5 788-0) PLT (test code = See_Comment [Automated 777-3) message] The sy stem which generated this result transmitted reference range : 166 - 358 10*3/ ?L. The reference r cori was not used to interpret this result as normal/abnormal . MPV (test code = 10.0 fL 9.5-12.9 38573-6) NRBC/100 WBC (test See_Comment [Automat ed code = 0247626848) message] The system which generated this result transmitted reference range : 0.0 - 10.0 /100 WBCs. The refer ence range was not u sed to interpret th is result as normal/abnormal . NRBC x10^3 (test code <0.01 See_Comment [Auto mated = 2438475589) message] The s ystem which generated this result transmitted reference range : 10*3/?L. The reference range was not used to interpret this result as normal/abnormal . GRAN MAT (NEUT) % 74.5 % (test code = 770-8) IMM GRAN % (test code 0.50 % = 3564400552) LYMPH % (test code = 19.1 % 736-9) MONO % (test code = 5.7 % 5905-5) EOS % (test code = 0.0 % 713-8) BASO % (test code = 0.2 % 706-2) GRAN MAT x10^3(ANC) 4.33 10*3/uL 1.88-7.09 (test code = 6695362030) IMM GRAN x10^3 (test 0.03 10*3/uL 0.00-0.06 code = 0636304438) LYMPH x10^3 (test code 1.11 10*3/uL 1.32-3.29 L = 731-0) MONO x10^3 (test code 0.33 10*3/uL 0.33-0.92 = 742-7) EOS x10^3 (test code = <0.03 0.03-0.39 L 711-2) BASO x10^3 (test code <0.03 0.01-0.07 = 704-7) Lab Interpretation Abnormal (test code = 65572-8) [facility] GLUCOSE (AUTOMATED)2020-07-27 03:21:00 Test Item Value Reference Range Interpretation Comments POCT GLU (test code = 8716554268) 269 mg/dL 70-110 H Lab Interpretation (test code = Abnormal 56740-9) [facility] GLUCOSE (AUTOMATED)2020-07-26 23:25:00 Test Item Value Reference Range Interpretation Comments POCT GLU (test code = 0025967061) 284 mg/dL 70-110 H Lab Interpretation (test code = Abnormal 08031-6) [facility] GLUCOSE (AUTOMATED)2020-07-26 17:57:00 Test Item Value Reference Range Interpretation Comments POCT GLU (test code = 9859962632) 191 mg/dL 70-110 H Lab Interpretation (test code = Abnormal 21596-6) [facility] [id number] 16:10:53EXAM: XR CHEST 1 VW HISTORY: sob COMPARISON: None. FINDINGS: The heart and great vessels are normal.Pronounced hilar vascularcongestion is combined with mild peripheral pulmonary edema on both sides.The lungs are poorly expanded but show no focal infiltration to suggestpneumonia. ? [facility], Radiant Results Inft User - 07/26/2020 10:12 AM CSTEXAM: XR CHEST 1 VWHISTORY: sob COMPARISON: None.FINDINGS:The heart and great vessels are normal. Pronounced hilar vascularcongestion is combined with mild peripheral pulmonary edema on both sides.The lungs are poorly expanded but show no focal infiltration to suggestpneumonia.[facility] CampusGLYCOSYLATED HEMOGLOBIN (A1C)2020-07-26 15:31:00 Test Item Value Reference Range Interpretation Comments HGB A1C (test code = 7.3 % 4.0-6.0 H 4548-4) JUAN MANUEL (test code = JUAN MANUEL) %A1C (NGSP) Interpretation (ADA)4.8-5.6 ? ? Normal or (Non-Diabetic Range)5.7-6.4 ? ? Increased Risk (Pre-Diabetic)>6.5 ?Diabetes Indicated Lab Interpretation Abnormal (test code = 16070-9) [facility]2020-07-26 13:56:00 Test Item Value Reference Range Interpretation Comments POCT GLU (test code = 7655386867) 164 mg/dL 70-110 H Lab Interpretation (test code = Abnormal 27646-0) [facility] (23973) (ALB,T.PRO,BILI T,BU/BC,ALT,AST,ALK PHOS)2020-07-26 12:02:00 Test Item Value Reference Range Interpretation Comments TOTAL BILI (test code = 3264543069) 0.6 mg/dL 0.1-1.1 BILI UNCON (test code = 5124879647) 0.4 mg/dL 0.1-1.1 BILI CONJ (test code = 4662058756) 0.0 mg/dL 0.0-0.3 T PROTEIN (test code = 8694890348) 6.4 g/dL 6.3-8.2 ALBUMIN (test code = 2989655684) 3.4 g/dL 3.5-5.0 L ALK PHOS (test code = 5333149994) 52 U/L 34-122 ALTv (test code = 1742-6) 68 U/L 5-35 H AST(SGOT) (test code = 6327415000) 61 U/L 13-40 H Lab Interpretation (test code = Abnormal 29899-2) [facility] (NA, K, CL, CO2, GLUCOSE, BUN, CREATININE, CA)2020-07-26 12:02:00 Test Item Value Reference Range Interpretation Comments NA (test code = 130 mmol/L 135-145 L 1584004281) K (test code = 3.6 mmol/L 3.5-5.0 3114570093) CL (test code = 96 mmol/L 98-108 L 4130770379) CO2 TOTAL (test code = 29 mmol/L 23-31 4716578646) AGAP (test code = 2-16 7903712794) BUN (test code = 15 mg/dL 7-23 3963251570) GLUCOSE (test code = 175 mg/dL 70-110 H 4104114111) CREATININE (test code = 0.60 mg/dL 0.50-1.04 3355000426) CALCIUM (test code = 7.9 mg/dL 8.6-10.6 L 3253985605) eGFR Calculation mL/min/1.73m2 (Non-) (test code = 9539248064) eGFR Calculation mL/min/1.73m2 () (test code = 7364724888) JUAN MANUEL (test code = JUAN MANUEL) Association of Glomerular Filtration Rate (GFR) and Staging of Kidney Disease* + --+ --+ ------+| GFR (mL/min/1.73 m2) ?| With Kidney Damage ?| ?Without Kidney Damage+ --------+ --------+ +| ?>90 ?| ?Stage one ?| ? Normal ?+ ---+ ---+ -------+| ?60-89 ?| ?Stage two ?| ? Decreased GFR ? + --+ --+ ------+| ?30-59 ?| ?Stage three ?| ? Stage three ? + --+ --+ ------+| ?15-29 ?| ?Stage four ? | ? Stage four ?+ ---+ ---+ -------+| ?<15 (or dialysis) ? ?| ?Stage five ? | ? Stage five ?+ ---+ ---+ -------+ *Each stage assumes the associated GFR level has been in effect for at least three months. ?Stages 1 to 5, with or without kidney disease, indicate chronic kidney disease. Notes: Determination of stages one and two (with eGFR >59mL/min/1.73 m2) requires estimation of kidney damage for at least three months as defined by structural or functional abnormalities of the kidney, manifested by either:Pathological abnormalities or Markers of kidney damage (including abnormalities in the composition of the blood or urine or abnormalities in imaging tests). Lab Interpretation Abnormal (test code = 96244-8) [facility] WITH [id number] 10:53:00 Test Item Value Reference Range Interpretation Comments WBC (test code = See_Comment [Automated 6690-2) message] The sy stem which generated this result transmitted reference range : 4.30 - 11.10 10*3/?L. The reference range was not used to interpret this result as normal/abnormal . RBC (test code = See_Comment [Automated 789-8) message] The sy stem which generated this result transmitted reference range : 3.93 - 5.25 10*6/?L. The reference range was not used to interpret this result as normal/abnormal . HGB (test code = 12.7 g/dL 11.6-15.0 718-7) HCT (test code = 37.2 % 35.7-45.2 4544-3) MCV (test code = 89.0 fL 80.6-95.5 787-2) MCH (test code = 30.4 pg 25.9-32.8 785-6) MCHC (test code = 34.1 g/dL 31.6-35.1 786-4) RDW-SD (test code = 42.0 fL 39.0-49.9 55330-1) RDW-CV (test code = 12.7 % 12.0-15.5 788-0) PLT (test code = See_Comment [Automated 777-3) message] The sy stem which generated this result transmitted reference range : 166 - 358 10*3/ ?L. The reference r cori was not used to interpret this result as normal/abnormal . MPV (test code = 10.0 fL 9.5-12.9 33070-6) NRBC/100 WBC (test See_Comment [Automat ed code = 9696526293) message] The system which generated this result transmitted reference range : 0.0 - 10.0 /100 WBCs. The refer ence range was not u sed to interpret th is result as normal/abnormal . NRBC x10^3 (test code <0.01 See_Comment [Auto mated = 6951371000) message] The s ystem which generated this result transmitted reference range : 10*3/?L. The reference range was not used to interpret this result as normal/abnormal . GRAN MAT (NEUT) % 76.3 % (test code = 770-8) IMM GRAN % (test code 0.60 % = 1893862932) LYMPH % (test code = 16.8 % 736-9) MONO % (test code = 5.9 % 5905-5) EOS % (test code = 0.4 % 713-8) BASO % (test code = 0.0 % 706-2) GRAN MAT x10^3(ANC) 5.46 10*3/uL 1.88-7.09 (test code = 9103595450) IMM GRAN x10^3 (test 0.04 10*3/uL 0.00-0.06 code = 3819160389) LYMPH x10^3 (test code 1.20 10*3/uL 1.32-3.29 L = 731-0) MONO x10^3 (test code 0.42 10*3/uL 0.33-0.92 = 742-7) EOS x10^3 (test code = 0.03 10*3/uL 0.03-0.39 711-2) BASO x10^3 (test code <0.03 0.01-0.07 = 704-7) Lab Interpretation Abnormal (test code = 20610-6) [facility] COVID [id number] 04:38:00COVID DMT InterpretationInterpretation/Recommendations: Molecular NAAT Tests for Active Infection with the SARS-CoV-2 Virus: The current test result is positive for the SARS-CoV-2 virus that causes COVID-19 illness. In rldg-hu-artpfydz illness, the patient may be considered no longer infectious when it has been after 10 days since symptom onset, the patient has been afebrile for 24 hours without the use of fever-reducing medications, AND other symptoms of COVID-19 are improving. However, in patientswho have been severely ill with COVID-19 or are severely immunocompromised, isolation up to 20 days a fter symptom onset is recommended. Asymptomatic patients are considered infectious for the first 10 days subsequent to the initial positive test result. From the onset of symptoms, if any, this result is likely to remain positive up to 2-4 weeks. Tests for IgM and/or IgG Antibodies to the SARS-CoV-2 Virus: ? Testing for IgM and IgG antibodies approximately 3 weeks after illness onset will likely indicate whether the patient has produced antibodies to the SARS-CoV-2 virus. However, some patients may take longer to develop detectable antibodies, while some patients who were infected with SARS-CoV-2 may never develop antibodies. While antibodies to SARS-CoV-2 may provide some degree of immunity, at this time the strength and duration of the antibody response is unknown. Interpretation Result Comments:These interpretation comments are based upon all COVID-19 testing the patient has had at [facility], including molecular NAAT testing(more commonly known as PCR testing and Rapid ID Now testing) and antibody testing. It does not takeinto account any testing that a patient has had outside of the [facility] medical record. [facility] LABORATORY SERVICESCOVID WtaahckTQXG-SjP-3 Rapid ID NOW (no units) ? ? Date ? Value ? 07/25/2020 ? Positive (A) ? [facility]2020-07-26 02:47:00 Test Item Value Reference Range Interpretation Comments POCT GLU (test code = 3439267351) 161 mg/dL 70-110 H Lab Interpretation (test code = Abnormal 61866-9) [facility] GLUCOSE (AUTOMATED)2020-07-25 22:25:00 Test Item Value Reference Range Interpretation Comments POCT GLU (test code = 6740272984) 248 mg/dL 70-110 H Lab Interpretation (test code = Abnormal 73711-0) [facility]-REACTIVE [id number] 22:22:00 Test Item Value Reference Range Interpretation Comments CRP (test code = 9250415460) 9.9 mg/dL <0.8 H Lab Interpretation (test code = Abnormal 56749-3) [facility] CampusPROCALCITONIN2021-03-04 21:13:00 Test Item Value Reference Range Interpretation Comments Procalcitonin (test 0.05 ng/mL <0.07 code = 2059808292) JUAN MANUEL (test code = JUAN MANUEL) INTERPRETATION OF PROCALCITONIN RESULTS IN ADULTS >= 18 YEARS OF AGE Initiation and discontinuation of antibiotics on patients with suspected or confirmed Lower Respiratory Tract Infection in Adults >= 18 years of age. + +-------- --------+ + -----+|Procalcitonin |Interpretation ?|Antibiotic ? ? |Considerations ? |ng/mL ? | ?|recommendation | ? + +-------- --------+ + -----+| <0.1 ? | Bacterial ? ? ?| Strongly ? ? ?| ? | ?| infection very | discouraged ? | Overruling: ? | ?| unlikely ? ? ? | ? | ? Clinically unstable ? ? ? + +-------- --------+ + ? High risk for adverse ? ? | <0.25 ?| Bacterial ? ? ?| Discouraged ? | ? outcome ? | ?| infection ? ? ?| ? | ? SEE IMPORTANT NOTE ?| ?| unlikely ? ? ? | ? | ? + +-------- --------+ + -----+| >=0.25 ? ? ? | Bacterial ? ? ?| Encouraged ? ?| ? | ?| infection ? ? ?| ? | ? | ?| likely ? | ? | Consider treatment failure ?+ +------- ---------+ -+ if levels does not decrease | >0.5 ? | Bacterial ? ? ?| Strongly ? ? ?| appropriately ? | ?| infection very | encouraged ? ?| ? | ?| likely ? | ? | ? + +-------- --------+ + -----+ Discontinuation of antibiotics in high-acuity patients with suspected or confirmed sepsis in Adults >= 18 years of age. + +-------- --------+ + -----+|Procalcitonin |Interpretation ?|Antibiotic ? ? |Considerations ? |ng/mL ? | ?|recommendation | ? + +-------- --------+ + -----+| <0.25 ?| Bacterial ? ? ?| Strongly ? ? ?| ? | ?| infection very | discouraged ? | Overruling: ? | ?| unlikely ? ? ? | ? | ? Clinically unstable ? ? ? + +-------- --------+ + ? High risk for adverse ? ? | <0.5 or drop | Bacterial ? ? ?| Discouraged ? | ? outcome ? | >80% from ? ?| infection ? ? ?| ? | ? SEE IMPORTANT NOTE ?| highest PCT ?| unlikely ? ? ? | ? | ? | level ?| ?| ? | ? + +-------- --------+ + -----+| >=0.5 ?| Bacterial ? ? ?| Encouraged ? ?| ? | ?| infection ? ? ?| ? | ? | ?| likely ? | ? | Consider treatment failure ?+ +------- ---------+ -+ if levels does not decrease | >1.0 ? | Bacterial ? ? ?| Strongly ? ? ?| appropriately ? | ?| infection very | encouraged ? ?| ? | ?| likely ? | ? | ? + +-------- --------+ + -----+ Percentage of drop of Procalcitonin calculation for Discontinuation of antibiotics in high-acuity patients with suspected or confirmed sepsis in Adults >= 18 years of age. ? Procalcitonin highest{}-Procalcitonin current{}Delta Procalcitonin = x100% ? Procalcitonin current {} IMPORTANT NOTE: Procalcitonin may be elevated without bacterial infection by physiologic stress related to trauma, ivory, chronic dialysis, metastatic cancer, surgery in the past seven days, malaria, some fungal infections, and some forms of vasculitis. The interpretation algorithm may not apply to patients with immunosuppression (equivalent of >10 mg of prednisone daily), HIV with CD4 cell count < 350 cells/mm3, active malignancy on systemic chemotherapy, solid organ transplant or hematopoietic stem cell transplantation, or hospital acquired pneumonia. Additionally, some clinical trials of procalcitonin have excluded patients with shock requiring vasopressor use, acute respiratory failure requiring mechanical ventilation, or those with known lung abscess/empyema. For further information please refer to:[email or web address] Lab Interpretation Normal (test code = 85019-8) [facility] (ID NOW RAPID TESTING)2020-07-25 21:06:00 Test Item Value Reference Range Interpretation Comments SARS-CoV-2 Rapid ID NOW Positive Not Detected A (test code = 90660-7) JUAN MANUEL (test code = JUAN MANUEL) ID NOW COVID-19 Assay is an isothermal nucleic acid amplification test intended for the qualitative detection of nucleic acid from SARS-CoV-2 viral RNA in nasopharyngeal (HAND TURNER) specimens. It is used under Emergency Use Authorization (EUA) by FDA. The limit of detection (LOD) of the assay is 125 Genome Equivalents/mL. A positive result is indicative of the presence of SARS-CoV-2 RNA. ?Clinical correlation with patient history and other diagnostic information is necessary to determine patient infection status. A negative (Not Detected) result does not preclude SARS-CoV-2 infection. In patients with clinical symptoms and other tests that are consistent with SARS-CoV-2 infection, negative results should be treated as presumptive negative and a new specimen should be tested with alternative PCR molecular test. Invalid: Please collect a new specimen for repeat patient testing if clinically indicated. Lab Interpretation Abnormal (test code = 35761-9) [facility] PULMONARY [id number] 13:58:16HISTORY: Rule out P.E. TECHNIQUE: Contrast-enhanced 64-mutidetector CT scan of the chest wascompleted with intravenous injection of ?non ionic contrast medium.Subsequently numerous sagittal, coronal and MIP reformations weregenerated. FINDINGS: Visualized portions of the thyroid gland appear unremarkable.Trachea and central bronchial airways appear normal. No acute pulmonary thromboembolism detected.No aortic aneurysm or aorticdissection. No pneumothorax or pneumomediastinum. No pleural effusion orpericardial effusion. Scattered subcentimeter lymph nodes are seen anterior to the trachea, inthe subc arinal space, AP window region and hilar regions. Both lungs showed small peripherally based ground glass hazy infiltrates. There is probably a short sliding hiatal hernia. Cholecystectomy noted.Mild mid thoracic degenerative spondylosis is noted without any compressionfracture deformity or aggressivebone lesions visualized. CONCLUSIONS:1. No acute pulmonary thromboembolism.2. Abnormal findings in both lungs, consistent with COVID 19 pulmonaryinfection. [facility], Radiant Results Inft User - 07/25/2020 7:59 AM CSTHISTORY: Rule out P.E.TECHNIQUE: Contrast-enhanced 64-mutidetector CT scan of the chest was completed with intravenous injection of non ionic contrast medium.Subsequently numerous sagittal, coronal and MIP reformations weregenerated.FINDINGS: Visualized portions of the thyroid gland appear unremarkable.Trachea and central bronchial airways appear normal.No acute pulmonary thromboembolism detected. No aortic aneurysm or aorticdissection. No pneumothorax or pneumomediastinum. No pleural effusion orpericardial effusion.Scattered subcentimeter lymph nodes are seen anterior to the trachea, inthe subcarinal space, AP window region and hilar regions.Both lungs showed small peripherally based ground glass hazy infiltrates.There is probably a short sliding hiatal hernia. Cholecystectomy noted.Mild mid thoracic degenerative spondylosis is noted without any compressionfracture deformity or aggressive bone lesions visualized.CONCLUSIONS:1. No acute pulmonary thromboembolism.2. Abnormal findings inboth lungs, consistent with COVID 19 pulmonaryinfection.[facility] CampusFERRITIN [id number] 13:00:00 Test Item Value Reference Range Interpretation Comments FERRITIN (test code = 182.0 ng/mL 11.0-264.0 2052975919) JUAN MANUEL (test code = JUAN MANUEL) Biotin has been reported to cause a negative bias, interpret results relative to patient's use of biotin. Lab Interpretation (test Normal code = 40460-2) [facility]. METABOLIC PANEL (37945)2020-07-25 12:25:00 Test Item Value Reference Range Interpretation Comments NA (test code = 132 mmol/L 135-145 L 0774160935) K (test code = 3.5 mmol/L 3.5-5.0 7888711322) CL (test code = 92 mmol/L 98-108 L 1399480339) CO2 TOTAL (test code = 31 mmol/L 23-31 1596861659) AGAP (test code = 2-16 4915885948) BUN (test code = 17 mg/dL 7-23 0243586919) GLUCOSE (test code = 188 mg/dL 70-110 H 2973937140) CREATININE (test code = 0.66 mg/dL 0.50-1.04 0525054158) TOTAL BILI (test code = 0.8 mg/dL 0.1-1.4 0183929623) CALCIUM (test code = 8.5 mg/dL 8.6-10.6 L 6745833618) T PROTEIN (test code = 7.5 g/dL 6.3-8.2 3118074941) ALBUMIN (test code = 4.3 g/dL 3.5-5.0 8348821930) ALK PHOS (test code = 60 U/L 34-122 5084972213) ALTv (test code = 86 U/L 5-35 H 1742-6) AST(SGOT) (test code = 71 U/L 13-40 H 4075808163) eGFR Calculation mL/min/1.73m2 (Non-) (test code = 1148022469) eGFR Calculation mL/min/1.73m2 () (test code = 1910645031) JUAN MANUEL (test code = JUAN MANUEL) Association of Glomerular Filtration Rate (GFR) and Staging of Kidney Disease* + --+ --+ ------+| GFR (mL/min/1.73 m2) ?| With Kidney Damage ?| ?Without Kidney Damage+ --------+ --------+ +| ?>90 ?| ?Stage one ?| ? Normal ?+ ---+ ---+ -------+| ?60-89 ?| ?Stage two ?| ? Decreased GFR ? + --+ --+ ------+| ?30-59 ?| ?Stage three ?| ? Stage three ? + --+ --+ ------+| ?15-29 ?| ?Stage four ? | ? Stage four ?+ ---+ ---+ -------+| ?<15 (or dialysis) ? ?| ?Stage five ? | ? Stage five ?+ ---+ ---+ -------+ *Each stage assumes the associated GFR level has been in effect for at least three months. ?Stages 1 to 5, with or without kidney disease, indicate chronic kidney disease. Notes: Determination of stages one and two (with eGFR >59mL/min/1.73 m2) requires estimation of kidney damage for at least three months as defined by structural or functional abnormalities of the kidney, manifested by either:Pathological abnormalities or Markers of kidney damage (including abnormalities in the composition of the blood or urine or abnormalities in imaging tests). Lab Interpretation Abnormal (test code = 27567-5) [facility] [id number] 12:25:00 Test Item Value Reference Range Interpretation Comments LDH (test code = 5320368498) 602 U/L 300-600 H Lab Interpretation (test code = Abnormal 59410-6) [facility] / [id number] 12:09:00 Test Item Value Reference Range Interpretation Comments PROTIME PATIENT (test See_Comment [Auto mated message] code = 5964-2) The system wh ich generated this result transmitted ref erence range: 12.0 - 1 4.7 Seconds. The re ference range was not u sed to interpret this result as normal/abnor mal. INR (test code = 6301-6) Nor mal INR <1.1; Warfarin Therap eutic range 2.0 to 3. 0 or 2.5 to 3.5, dep ending upon the indica tions. Lab Interpretation (test Normal code = 41542-0) [facility][id number] 12:07:00 Test Item Value Reference Interpretation Comments Range D-DIMER (test code = See_Comment H [Autom ated [id number]) message] The system which generated this result transmitted reference range : <0.41 ?g/mL (FEU). The reference range was not used to interpret this result as normal/abnormal . JUAN MANUEL (test code = This test may be JUAN MANUEL) used in conjunction with a clinical pretest probability (PTP) assessment model to exclude venous thromboembolism (VTE) in patients suspected of deep venous thrombosis (DVT) and pulmonary embolism (PE) A D-Dimer value less than 0.50 ?g/ml (FEU) has a negative predicative value of 96 to 100% (95% CI)and 97 to 100% (95% CI) as an aid in the diagnosis of deep vein thrombosis (DVT) and pulmonary embolism when there is low or moderate pretest probability of PE or DVT. D-Dimer values are expressed in initial fibrinogen equivalent units (FEU)" The assay results should be used with other information, including the clinical context, in forming a diagnosis. Lab Interpretation Abnormal (test code = 77086-1) [facility] WITH [id number] 11:52:00 Test Item Value Reference Range Interpretation Comments WBC (test code = See_Comment H [Automated 3737-2) message] The sy stem which generated this result transmitted reference range : 4.30 - 11.10 10*3/?L. The reference range was not used to interpret this result as normal/abnormal . RBC (test code = See_Comment [Automated 919-8) message] The sy stem which generated this result transmitted reference range : 3.93 - 5.25 10*6/?L. The reference range was not used to interpret this result as normal/abnormal . HGB (test code = 14.2 g/dL 11.6-15.0 718-7) HCT (test code = 41.9 % 35.7-45.2 4544-3) MCV (test code = 89.1 fL 80.6-95.5 787-2) MCH (test code = 30.2 pg 25.9-32.8 785-6) MCHC (test code = 33.9 g/dL 31.6-35.1 786-4) RDW-SD (test code = 40.2 fL 39.0-49.9 91141-3) RDW-CV (test code = 12.2 % 12.0-15.5 788-0) PLT (test code = See_Comment [Automated 777-3) message] The sy stem which generated this result transmitted reference range : 166 - 358 10*3/ ?L. The reference r cori was not used to interpret this result as normal/abnormal . MPV (test code = 10.6 fL 9.5-12.9 03100-2) NRBC/100 WBC (test See_Comment [Automat ed code = 7736217252) message] The system which generated this result transmitted reference range : 0.0 - 10.0 /100 WBCs. The refer ence range was not u sed to interpret th is result as normal/abnormal . NRBC x10^3 (test code <0.01 See_Comment [Auto mated = [id number]) message] The s ystem which generated this result transmitted reference range : 10*3/?L. The reference range was not used to interpret this result as normal/abnormal . GRAN MAT (NEUT) % 71.3 % (test code = 770-8) IMM GRAN % (test code 0.60 % = 0441701522) LYMPH % (test code = 21.8 % 736-9) MONO % (test code = 5.8 % 5905-5) EOS % (test code = 0.3 % 713-8) BASO % (test code = 0.2 % 706-2) GRAN MAT x10^3(ANC) 8.86 10*3/uL 1.88-7.09 H (test code = 4633570976) IMM GRAN x10^3 (test 0.07 10*3/uL 0.00-0.06 H code = 4078066200) LYMPH x10^3 (test code 2.70 10*3/uL 1.32-3.29 = 731-0) MONO x10^3 (test code 0.72 10*3/uL 0.33-0.92 = 742-7) EOS x10^3 (test code = 0.04 10*3/uL 0.03-0.39 711-2) BASO x10^3 (test code <0.03 0.01-0.07 = 704-7) Lab Interpretation Abnormal (test code = 80125-1) [facility]
--- NOTE | 2022-09-30 10:36 | RAD REPORT ---
EXAM DESCRIPTION: RAD - Chest Single View - 09/30/2022 10:14 am CLINICAL HISTORY: COUGH COMPARISON: Chest Single View dated 08/13/2020 FINDINGS: Lines: None. Lungs: No evidence of edema or pneumonia. Pleural: No significant pleural effusions or pneumothorax. Cardiac: The heart size is within normal limits. Mediastinum: Within normal limits. Bones: No acute fractures. Other: None IMPRESSION: No acute cardiopulmonary disease.
--- NOTE | 2022-09-30 12:04 | EDPHYS ---
Physician Documentation [facility] Name: Fariba Roper Age: 67 yrs Sex: Female : 1955 Arrival Date: 09/30/2022 Time: 09:12 Bed 18 Private MD: ED Physician Devin Roberts HPI: 09/30 09:44 This 67 yrs old Female presents to ER via Ambulatory with complaints of rt Painful Cough, Sore Throat. 09:44 Patient presents to the ED with sore throat, cough. She reports that her brother rt recently tested positive for tuberculosis and is currently in a hospital. She reports a generalized malaise. She denies any difficulty breathing, chest pain. She denies other acute complaints at this time. Symptoms are mild in severity, no other aggravating or alleviating factors.. Historical: - Allergies: 09:38 Codeine; ss - Home Meds: 09:45 benzonatate 200 mg Oral cap 1 cap 3 times per day [Active]; ezetimibe 10 mg Oral 1 tab eh3 once daily [Active]; furosemide 40 mg Oral tab 1 tab once daily [Active]; hydrochlorothiazide 25 mg Oral tab 1 tab once daily [Active]; Janumet 50-1,000 mg Oral tab 1 tab 2 times per day [Active]; levothyroxine 75 mcg tab 1 tab once daily [Active]; rivaroxaban 10 mg Oral 1 tab once daily [Active]; - PMHx: 09:38 Diabetes - NIDDM; Hypertension; Hypothyroidism; Pancreatitis; ss - Immunization history:: Adult Immunizations up to date. - Social history:: Smoking status: unknown. - Family history:: not pertinent. ROS: 09:44 Cardiovascular: Negative for chest pain, palpitations, and edema, Abdomen/GI: Negative rt for abdominal pain, nausea, vomiting, diarrhea, and constipation, MS/Extremity: Negative for injury and deformity, Skin: Negative for injury, rash, and discoloration, Neuro: Negative for headache, weakness, numbness, tingling, and seizure, Psych: Negative for depression, anxiety, suicide ideation, homicidal ideation, and hallucinations. 09:44 Constitutional: Positive for body aches, malaise. 09:44 ENT: Positive for rhinorrhea, sore throat. 09:44 Respiratory: Positive for cough, Negative for shortness of breath. Exam: 09:44 Constitutional: This is a well developed, well nourished patient who is awake, alert, rt and in no acute distress. Head/Face: Normocephalic, atraumatic. Chest/axilla: Normal chest wall appearance and motion. Nontender with no deformity. No lesions are appreciated. Cardiovascular: Regular rate and rhythm with a normal S1 and S2. No gallops, murmurs, or rubs. Normal PMI, no JVD. No pulse deficits. Respiratory: Lungs have equal breath sounds bilaterally, clear to auscultation and percussion. No rales, rhonchi or wheezes noted. No increased work of breathing, no retractions or nasal flaring. Abdomen/GI: Soft, non-tender, with normal bowel sounds. No distension or tympany. No guarding or rebound. No evidence of tenderness throughout. Skin: Warm, dry with normal turgor. Normal color with no rashes, no lesions, and no evidence of cellulitis. MS/ Extremity: Pulses equal, no cyanosis. Neurovascular intact. Full, normal range of motion. Neuro: Awake and alert, GCS 15, oriented to person, place, time, and situation. Cranial nerves II-XII grossly intact. Motor strength 5/5 in all extremities. Sensory grossly intact. Cerebellar exam normal. Normal gait. Psych: Awake, alert, with orientation to person, place and time. Behavior, mood, and affect are within normal limits. Vital Signs: 09:43 BP 122 / 62; Pulse 79; Resp 18; Temp 98.9(O); Pulse Ox 95% on R/A; Pain 7/10; eh3 10:30 BP 117 / 54; Pulse 75; Resp 18; Pulse Ox 96% on R/A; eh3 11:30 BP 131 / 50; Pulse 68; Resp 18; Pulse Ox 96% on R/A; eh3 09:43 Pain Scale: Adult eh3 MDM: 09:38 Patient medically screened. rt 12:16 Differential Diagnosis: Other Respiratory infection, pneumonia, pneumothorax, rt tuberculosis. Data reviewed: vital signs, nurses notes, lab test result(s), radiologic studies. Independent interpretation of the following test(s) in the Emergency Department X-Ray: My interpretation is No consolidation seen on my interpretation of the chest x-ray images. Test considered but Not performed: CT: Stable vital signs, no hypoxia, tachycardia, very low suspicion for pulmonary embolism, CT angiogram not indicated. Care significantly affected by the following chronic conditions: Diabetes. Counseling: I had a detailed discussion with the patient and/or guardian regarding: the need for outpatient follow up, Patient referred to primary care, health department for definitive rule out of tuberculosis, no evidence of active infection.. 09/30 10:05 Order name: SARS-COV-2 RT PCR EDMS 09/30 09:46 Order name: Chest Single View XRAY; Complete Time: 10:37 rt Administered Medications: No medications were administered Disposition Summary: 09/30/22 12:03 Discharge Ordered Location: Home rt Problem: new rt Symptoms: are unchanged rt Condition: Stable rt Diagnosis - Cough rt Followup: rt - With: Private Physician - When: 2 - 3 days - Reason: Discharge Instructions: - Discharge Summary Sheet rt - Upper Respiratory Infection, Adult rt - Cough, Adult rt Forms: - Medication Reconciliation Form rt - Thank You Letter rt - Antibiotic Education rt - Prescription Opioid Use rt Prescriptions: - albuterol sulfate 90 mcg/actuation Inhalation HFA Aerosol Inhaler - inhale 2 puff by INHALATION route every 2 hours as needed for bronchospasm; rt administer via ventilator; 1 Each; Refills: 0, Product Selection Permitted - Tessalon Perles 100 mg Oral Capsule - take 1 capsule by ORAL route every 8 hours As needed; 15 capsule; Refills: 0, rt Product Selection Permitted Signatures: Dispatcher [employer] Marva Mcconnell RN RN Deyanira Brush RN RN 3 Devin Roberts MD MD rt Corrections: (The following items were deleted from the chart) 10:03 09:47 SARS-COV-2 Antigen Rapid+I.LAB.BRZ ordered. EDCO EDMS
--- NOTE | 2022-09-30 12:04 | ER ---
Nurse's Notes [facility] Name: Fariba Roper Age: 67 yrs Sex: Female : 1955 Arrival Date: 09/30/2022 Time: 09:12 Bed 18 Private MD: Diagnosis: Cough Presentation: 09/30 09:37 Chief complaint: Patient states: cough, body aches and sore throat that began Wednesday. ss Pt is concerned because her brother recently tested positive for TB and just wants a test to make sure she does not have TB as well. Coronavirus screen: Client denies travel out of the [place] in the last 14 days. Ebola Screen: Patient denies exposure to infectious person. Patient denies travel to an Ebola-affected area in the 21 days before illness onset. Initial Sepsis Screen: Does the patient meet any 2 criteria? No. Patient's initial sepsis screen is negative. Does the patient have a suspected source of infection? No. Patient's initial sepsis screen is negative. Risk Assessment: Do you want to hurt yourself or someone else? Patient reports no desire to harm self or others. Onset of symptoms was September 22, 2022. 09:37 Method Of Arrival: Ambulatory 09:37 Acuity: NIKA 3 ss Historical: - Allergies: 09:38 Codeine; ss - Home Meds: 09:45 benzonatate 200 mg Oral cap 1 cap 3 times per day [Active]; ezetimibe 10 mg Oral 1 tab eh3 once daily [Active]; furosemide 40 mg Oral tab 1 tab once daily [Active]; hydrochlorothiazide 25 mg Oral tab 1 tab once daily [Active]; Janumet 50-1,000 mg Oral tab 1 tab 2 times per day [Active]; levothyroxine 75 mcg tab 1 tab once daily [Active]; rivaroxaban 10 mg Oral 1 tab once daily [Active]; - PMHx: 09:38 Diabetes - NIDDM; Hypertension; Hypothyroidism; Pancreatitis; ss - Immunization history:: Adult Immunizations up to date. - Social history:: Smoking status: unknown. - Family history:: not pertinent. Screenin:43 [facility] ED Fall Risk Assessment (Adult) Score/Fall Risk Level 0 - 2 = Low Risk. Abuse eh3 screen: Denies threats or abuse. Denies injuries from another. Nutritional screening: No deficits noted. Tuberculosis screening: No symptoms or risk factors identified. Assessment: 09:43 General: Appears in no apparent distress. uncomfortable, Behavior is calm, cooperative, eh3 appropriate for age. Pain: Complains of pain in throat. Neuro: Level of Consciousness is awake, alert, obeys commands, Oriented to person, place, time, situation. Cardiovascular: Capillary refill < 3 seconds Patient's skin is warm and dry. Respiratory: Reports cough that is productive, pain with cough Airway is patent Respiratory effort is even, unlabored, Breath sounds are clear bilaterally. GI: Abdomen is round non-distended. : No signs and/or symptoms were reported regarding the genitourinary system. EENT: Throat is reddened. Derm: Skin is intact, is healthy with good turgor, Skin is pink, warm \T\ dry. Musculoskeletal: No signs and/or symptoms reported regarding the musculoskeletal system. 10:30 Reassessment: Patient appears in no apparent distress at this time. Patient and/or 3 family updated on plan of care and expected duration. Pain level reassessed. Patient is alert, oriented x 3, equal unlabored respirations, skin warm/dry/pink. 11:30 Reassessment: Patient appears in no apparent distress at this time. Patient and/or 3 family updated on plan of care and expected duration. Pain level reassessed. Patient is alert, oriented x 3, equal unlabored respirations, skin warm/dry/pink. Vital Signs: 09:43 BP 122 / 62; Pulse 79; Resp 18; Temp 98.9(O); Pulse Ox 95% on R/A; Pain 7/10; eh3 10:30 BP 117 / 54; Pulse 75; Resp 18; Pulse Ox 96% on R/A; eh3 11:30 BP 131 / 50; Pulse 68; Resp 18; Pulse Ox 96% on R/A; eh3 09:43 Pain Scale: Adult 3 ED Course: 09:13 Patient arrived in ED. ts1 09:18 Devin Roberts MD is Attending Physician. rt 09:38 Deyanira Brush, ILA is Primary Nurse. eh3 09:38 Triage completed. ss 09:38 Arm band placed on right wrist. ss 09:43 Patient has correct armband on for positive identification. Bed in low position. Call eh3 light in reach. Side rails up X2. Pulse ox on. NIBP on. Door closed. Noise minimized. Lights dimmed. 10:16 Chest Single View XRAY In Process Unspecified. EDMS 12:11 No provider procedures requiring assistance completed. Patient did not have IV access eh3 during this emergency room visit. Administered Medications: No medications were administered Medication: 12:11 VIS not applicable for this client. eh3 Outcome: 12:03 Discharge ordered by . rt 12:29 Discharged to home ambulatory. eh3 12:29 Condition: stable 12:29 Discharge instructions given to patient, Instructed on discharge instructions, follow up and referral plans. medication usage, Demonstrated understanding of instructions, follow-up care, medications, Prescriptions given X 2. 12:29 Patient left the ED. eh3 Signatures: Dispatcher [employer] EDMS Marva Patino, RN RN Deyanira Brush RN RN eh3 Devin Roberts MD MD rt Yvette Ibrahim, PAS PAS ts1
[2022-09-30 12:33] VITALS: TEMP 98.9
[2022-09-30 12:34] VITALS: O2SAT 96
[2022-09-30 12:36] VITALS: BP 131/50
== END 2022-09-30 12:29 | disposition home or self-care (01) ==
LOC: ER 09:12
DX: R05.9 Cough, unspecified (principal); R07.0 Pain in throat; R53.81 Other malaise; Z20.822 Contact with and (suspected) exposure to COVID-19; Z88.5 Allergy status to narcotic agent
CPT/HCPCS: 36415; 71045; U0003

== ENCOUNTER 2024-02-03 21:55 | Emergency (ER) | payer MEDICARE ==
[2024-02-03] MEDS ORDERED: LORazepam 2 MG/ML VIAL ONE (22:32)
[2024-02-03] MEDS ORDERED: ONDANSETRON 4 MG/2 ML VIAL ONE (22:32)
[2024-02-03 22:45] LABS: Absolute Basophils 0.1 K/uL (0-0.5); Absolute Eosinophils 0.2 K/uL (0-0.5); Absolute Lymphocytes (CBC) 3.6 K/uL (0.7-4.9); Absolute Monocytes 0.5 K/uL (0.1-1.3); Absolute Neutrophil 4.1 K/uL (1.8-8.0); Basophils % 0.9 % (0-1.3); Eosinophils % 2.5 % (0-4.4); Hematocrit 36.3 % (36.0-45.0); Hemoglobin 12.3 g/dL (12.0-15.0); Lymphocytes % 42.6 % (15.3-44.8); MCH 30.8 pg (27.0-35.0); MCHC 34.1 g/dL (32.0-36.0); MCV 90.3 fL (80-100); MPV 8.3 fL (7.6-11.3); Monocytes % 5.6 % (3.3-12.3); Neutrophils % 48.4 % (41.7-73.7); Nucleated Red Blood Cells % 0.3 % (0-0); Platelets 233 thou/uL (152-406); RBC Red Blood Cell Count 4.01 M/uL (3.86-4.86); Red Cell Distribution Width 14.2 % (12.1-15.2)
[2024-02-03 22:56] LABS: ALT/SGPT 30 U/L (13-56); AST/SGOT 27 U/L (15-37); Albumin 3.5 g/dL (3.4-5.0); Alkaline Phosphatase 64 U/L (45-117); Anion Gap 7.9 mEq/L (5.0-15.0); BUN Blood Urea Nitrogen 15 mg/dL (7-18); Bicarbonate 29 mEq/L (21-32); Bilirubin Total 0.4 mg/dL (0.2-1.0); Globulin 3.6 g/dL (2.3-3.5); Glomerular Filtration Rate 96 ml/min (=/>90); Glucose Level 151 mg/dL (74-106); Potassium 3.9 mEq/L (3.5-5.1); Protein, Total 7.1 g/dL (6.4-8.2); Sodium Level 137 mEq/L (136-145); Troponin High Sensitivity 3.7 pg/mL (<58.9)
[2024-02-03 22:57] LABS: Bilirubin Direct < 0.2 mg/dL (0-0.2); Bilirubin Indirect, Calculated 0.2 mg/dL (0.2-0.8)
[2024-02-03 23:32] LABS: Monoscreen NEG (NEG)
[2024-02-04] MEDS ORDERED: AMOX/K CLAV 875 MG TAB ONE (00:04)
[2024-02-04] MEDS ORDERED: dexAMETHasone 10 MG/ML VIAL ONE (00:04)
--- NOTE | 2024-02-04 00:16 | ER ---
Nurse's Notes [facility] Name: Fariba Roper Age: 68 yrs Sex: Female : 1955 Arrival Date: 02/03/2024 Time: 21:55 Bed 5 Private MD: Diagnosis: Dysphagia, unspecified;Acute pharyngitis, unspecified Presentation: 02/02 22:04 Chief complaint: Patient states: "I was laying down and drank some water and it feels ss like it's stuck. I drank some more water and same thing. I tried to make myself vomit, but nothing.". Coronavirus screen: Client denies travel out of the [place] in the last 14 days. Ebola Screen: Patient denies exposure to infectious person. Patient denies travel to an Ebola-affected area in the 21 days before illness onset. Initial Sepsis Screen: Does the patient meet any 2 criteria? No. Patient's initial sepsis screen is negative. Does the patient have a suspected source of infection? No. Patient's initial sepsis screen is negative. Risk Assessment: Do you want to hurt yourself or someone else? Patient reports no desire to harm self or others. Onset of symptoms was February 03, 2024. 22:04 Method Of Arrival: Ambulatory ss 22:04 Acuity: NIKA 3 ss Triage Assessment: 22:06 General: Appears in no apparent distress. comfortable, Behavior is calm, cooperative. ss Neuro: Level of Consciousness is awake, alert. Respiratory: Airway is patent Respiratory effort is even, unlabored, Respiratory pattern is regular, symmetrical. Historical: - Allergies: 22:05 Codeine; ss - PMHx: 22:05 Diabetes - NIDDM; Hypertension; Hypothyroidism; Pancreatitis; ss - Immunization history:: Client reports receiving the 2nd dose of the Covid vaccine. - Infectious Disease History:: Denies. - Social history:: Smoking status: Patient denies any tobacco usage or history of. Screenin:11 [facility] ED Fall Risk Assessment (Adult) History of falling in the last 3 months, bm8 including since admission No falls in past 3 months (0 pts) Confusion or Disorientation No (0 pts) Intoxicated or Sedated No (0 pts) Impaired Gait No (0 pts) Mobility Assist Device Used No (0 pt) Altered Elimination No (0 pt) Score/Fall Risk Level 0 - 2 = Low Risk Oriented to surroundings, Maintained a safe environment, Educated pt \\T\\ family on fall prevention, incl call for assistance when getting out of bed, Assessed \\T\\ reinforced patient's understanding of fall precautions, Hourly rounding (assess needs \\T\\ fall precautionary measures) done, Used ambulatory aids as needed (educated on \\T\\ assisted with), Used gait belt as appropriate. Abuse screen: Denies threats or abuse. Nutritional screening: No deficits noted. Tuberculosis screening: No symptoms or risk factors identified. Assessment: 22:11 Reassessment: Patient appears in no apparent distress at this time. Patient and/or bm8 family updated on plan of care and expected duration. Pain level reassessed. Patient is alert, oriented x 3, equal unlabored respirations, skin warm/dry/pink. General: Appears in no apparent distress. comfortable, Behavior is calm, cooperative, appropriate for age. Pain: Denies pain. Neuro: No deficits noted. Level of Consciousness is awake, alert, obeys commands, Oriented to person, place, time, situation, Appropriate for age. Cardiovascular: Denies chest pain, Heart tones S1 S2 present Capillary refill < 3 seconds in bilateral fingers toes Patient's skin is warm and dry. Respiratory: Airway is patent Respiratory effort is even, unlabored, Respiratory pattern is regular, symmetrical, Breath sounds are clear bilaterally. GI: Reports feels like she is having trouble swallowing. : No signs and/or symptoms were reported regarding the genitourinary system. EENT: No signs and/or symptoms were reported regarding the EENT system. Derm: No signs and/or symptoms reported regarding the dermatologic system. Musculoskeletal: No signs and/or symptoms reported regarding the musculoskeletal system. 23:50 Reassessment: Patient appears in no apparent distress at this time. No changes from bm8 previously documented assessment. Patient and/or family updated on plan of care and expected duration. Pain level reassessed. Patient is alert, oriented x 3, equal unlabored respirations, skin warm/dry/pink. Vital Signs: 22:04 BP 146 / 76; Pulse 74; Resp 16; Temp 97.5(TE); Pulse Ox 99% on R/A; Weight 87.09 kg; ss Height 5 ft. 4 in. ; Pain 0/10; 22:42 BP 110 / 99; Pulse 77; Resp 18; Temp 97.5; Pulse Ox 100% ; Pain 0/10; bm8 23:50 BP 136 / 64; Pulse 77; Resp 17; Temp 97.5; Pulse Ox 100% ; Pain 0/10; bm8 02/03 00:11 BP 170 / 94; Pulse 94; Resp 18; Temp 97.5; Pulse Ox 92% ; Pain 5/10; bm8 02/02 22:04 Body Mass Index 32.96 (87.09 kg, 162.56 cm) ss 02/02 22:04 Pain Scale: Adult ss 22:42 Pain Scale: Adult bm8 23:50 Pain Scale: Adult bm8 02/03 00:11 Pain Scale: Adult bm8 [place] Coma Score: 02/02 22:11 Eye Response: spontaneous(4). Motor Response: obeys commands(6). Verbal Response: bm8 oriented(5). Total: 15. 22:42 Eye Response: spontaneous(4). Motor Response: obeys commands(6). Verbal Response: bm8 oriented(5). Total: 15. 23:50 Eye Response: spontaneous(4). Motor Response: obeys commands(6). Verbal Response: bm8 oriented(5). Total: 15. ED Course: 21:57 Patient arrived in ED. im 22:05 Triage completed. ss 22:05 Arm band placed on right wrist. ss 22:06 Omar Vitale PA is PHCP. cp 22:06 Juan Carlos Parham MD is Attending Physician. cp 22:07 Slim Bullard, RN is Primary Nurse. bm8 22:11 Patient has correct armband on for positive identification. Bed in low position. Call bm8 light in reach. Side rails up X 1. Adult w/ patient. Client placed on continuous cardiac and pulse oximetry monitoring. NIBP monitoring applied. Pulse ox on. NIBP on. Door closed. Noise minimized. Warm blanket given. Pillow given. PO fluids given. Verbal reassurance given. Head of bed elevated. 22:11 No provider procedures requiring assistance completed. Patient maintains SpO2 bm8 saturation greater than 95% on room air. 22:42 Inserted saline lock: 20 gauge in right antecubital area, using aseptic technique. bm8 Blood collected. Flushed with 10 mL NS. 22:50 XRAY Chest (1 view) In Process Unspecified. EDMS 23:22 CT Head C Spine In Process Unspecified. EDMS 23:23 CT Soft Tissue Neck W/contr In Process Unspecified. EDMS 02/03 00:12 Brook Steve MD is Referral Physician. cp 00:26 Provided Education on: post er care. bm8 00:26 IV discontinued, intact, bleeding controlled, No redness/swelling at site. Pressure bm8 dressing applied. Administered Medications: 02/02 22:33 Drug: Ondansetron IVP 4 mg IVP once; over 2 minutes Route: IVP; Site: right antecubital;bm8 22:39 Follow up: Response: No adverse reaction bm8 22:33 Drug: Ativan IVP 1 mg IVP once Route: IVP; Site: right antecubital; bm8 22:39 Follow up: Response: No adverse reaction bm8 02/03 00:11 Drug: Decadron - Dexamethasone IVP 10 mg IVP once Route: IVP; Site: right antecubital; bm8 00:27 Follow up: Response: No adverse reaction bm8 00:11 Drug: Amoxicillin-Clavulanate PO 875 mg PO once Route: PO; bm8 00:27 Follow up: Response: No adverse reaction bm8 Medication: 02/02 22:11 VIS not applicable for this client. bm8 Outcome: 02/03 00:16 Discharge ordered by MD. cp 00:26 Discharged to home ambulatory, bm8 00:26 Condition: stable 00:26 Discharge instructions given to patient, family, Instructed on discharge instructions, follow up and referral plans. no drinking with medication, no driving heavy equipment, medication usage, safety practices, Demonstrated understanding of instructions, follow-up care, medications, Prescriptions given X 2, 00:27 Patient left the ED. bm8 Signatures: Dispatcher [employer] EDSC Marva Valera RN RN ss Omar Vitale PA PA Rossy Quintana Brad, RN RN bm8 Corrections: (The following items were deleted from the chart) 02/02 22:05 22:05 PMHx: High Cholesterol (Pancreatitis); ss
--- NOTE | 2024-02-04 00:16 | EDPHYS ---
Physician Documentation [facility] Name: Fariba Roper Age: 68 yrs Sex: Female : 1955 Arrival Date: 02/03/2024 Time: 21:55 Bed 5 Private MD: ED Physician Juan Carlos Parham HPI: 02/02 22:15 This 68 yrs old Female presents to ER via Ambulatory with complaints of cp Foreign Body In Throat - feeling. 22:15 The patient presents with dysphagia, a foreign body sensation in the throat. The cp patient describes throat pain as discomfort when swallowing. 22:15 Onset: The symptoms/episode began/occurred today. cp 22:15 Patient is a 68-year-old female with past medical history significant for diabetes, cp hypertension, hypothyroidism and pancreatitis who presents to the emergency department with complaints of difficulty swallowing and discomfort on the right side of her throat. Patient reports symptoms started tonight after laying down when she attempted to drink some water she felt like it got stuck. She attempted to vomit without success and so she comes into the emergency department to be evaluated. Patient denies recently eating food and or taking any pills or medications. Patient denies difficulty breathing and/or rash and/or shortness of breath and/or allergy type symptoms. Historical: - Allergies: 22:05 Codeine; ss - PMHx: 22:05 Diabetes - NIDDM; Hypertension; Hypothyroidism; Pancreatitis; ss - Immunization history:: Client reports receiving the 2nd dose of the Covid vaccine. - Infectious Disease History:: Denies. - Social history:: Smoking status: Patient denies any tobacco usage or history of. ROS: 22:20 Constitutional: Negative for body aches, chills, fever, poor PO intake, cp 22:20 Eyes: Negative for injury, pain, redness, and discharge, cp 22:20 ENT: Positive for difficulty swallowing, sore throat, Negative for drainage from ear(s), ear pain, difficulty handling secretions, 22:20 Cardiovascular: Negative for chest pain, palpitations, 22:20 Respiratory: Negative for cough, shortness of breath, wheezing, 22:20 Abdomen/GI: Negative for abdominal pain, vomiting, diarrhea, constipation, Exam: 22:25 Constitutional: The patient appears in no acute distress, alert, awake, cp non-diaphoretic, non-toxic, well developed, well nourished, 22:25 Head/Face: Normocephalic, atraumatic. cp 22:25 Eyes: Periorbital structures: appear normal, Conjunctiva: normal, no exudate, no cp injection, Sclera: no appreciated abnormality, Lids and lashes: appear normal, bilaterally, 22:25 ENT: External ear(s): are unremarkable, Nose: is normal, Mouth: Lips: moist, Oral cp mucosa: moist, Posterior pharynx: Tonsils: no enlargement, no exudate, Uvula: midline, swelling, is not appreciated, erythema, that is mild, exudate, is not appreciated, Voice: is normal, 22:25 Neck: ROM/movement: is normal, is supple, without pain, no range of motions limitations, no meningismus, no nuchal rigidity, 22:25 Chest/axilla: Inspection: normal, 22:25 Cardiovascular: Rate: normal, Rhythm: regular, 22:25 Respiratory: the patient does not display signs of respiratory distress, Respirations: normal, no use of accessory muscles, no retractions, labored breathing, is not present, Breath sounds: are clear throughout, no decreased breath sounds, no stridor, no wheezing, 22:25 Abdomen/GI: Inspection: abdomen appears normal, Palpation: abdomen is soft and non-tender, in all quadrants, 22:25 Neuro: Orientation: to person, place \T\ time. Mentation: is normal, 22:30 ECG was reviewed by the Attending Physician. cp Vital Signs: 22:04 BP 146 / 76; Pulse 74; Resp 16; Temp 97.5(TE); Pulse Ox 99% on R/A; Weight 87.09 kg; ss Height 5 ft. 4 in. ; Pain 0/10; 22:42 BP 110 / 99; Pulse 77; Resp 18; Temp 97.5; Pulse Ox 100% ; Pain 0/10; bm8 23:50 BP 136 / 64; Pulse 77; Resp 17; Temp 97.5; Pulse Ox 100% ; Pain 0/10; bm8 02/03 00:11 BP 170 / 94; Pulse 94; Resp 18; Temp 97.5; Pulse Ox 92% ; Pain 5/10; bm8 02/02 22:04 Body Mass Index 32.96 (87.09 kg, 162.56 cm) ss 02/02 22:04 Pain Scale: Adult ss 22:42 Pain Scale: Adult bm8 23:50 Pain Scale: Adult bm8 02/03 00:11 Pain Scale: Adult bm8 Paz Coma Score: 02/02 22:11 Eye Response: spontaneous(4). Motor Response: obeys commands(6). Verbal Response: bm8 oriented(5). Total: 15. 22:42 Eye Response: spontaneous(4). Motor Response: obeys commands(6). Verbal Response: bm8 oriented(5). Total: 15. 23:50 Eye Response: spontaneous(4). Motor Response: obeys commands(6). Verbal Response: bm8 oriented(5). Total: 15. MDM: 22:06 Patient medically screened. cp 22:45 Differential diagnosis: group A strep tonsillitis, laryngitis, ronn's angina, cp mononucleosis, peritonsillar abscess pharyngitis, retropharyngeal abcess tonsillitis, tracheobronchitis. 02/03 00:15 Data reviewed: vital signs, nurses notes, lab test result(s), radiologic studies, CT cp scan, and as a result, I will discharge patient. 00:15 I considered the following discharge prescriptions or medication management in the emergency department Medications were administered in the Emergency Department. See MAR. Counseling: I had a detailed discussion with the patient and/or guardian regarding the historical points, exam findings, and any diagnostic results supporting the discharge/admit diagnosis, lab results, radiology results, the need for outpatient follow up, an ENT specialist, to return to the emergency department if symptoms worsen or persist or if there are any questions or concerns that arise at home. Response to treatment: the patient's symptoms have mildly improved after treatment, and as a result, I will discharge patient. 02/02 22:11 Order name: Basic Metabolic Panel; Complete Time: 23:43 cp 02/02 23:43 Interpretation: Normal except: GLUC 151. cp 02/02 22:11 Order name: CBC with Diff; Complete Time: 23:43 cp 02/02 22:11 Order name: LFT's; Complete Time: 23:43 cp 02/02 23:43 Interpretation: Normal except: GLOB 3.6; A/G 1.0. cp 02/02 22:11 Order name: Magnesium; Complete Time: 23:43 cp 02/02 22:11 Order name: Troponin HS; Complete Time: 23:43 cp 02/02 22:11 Order name: Strep 02/02 22:11 Order name: [place] Screen Profile; Complete Time: 23:43 cp 02/03 00:06 Order name: Throat Culture EDMS 02/02 22:11 Order name: XRAY Chest (1 view) 02/02 22:11 Order name: CT Head C Spine 02/02 22:11 Order name: CT Soft Tissue Neck W/contr 02/02 22:11 Order name: EKG; Complete Time: 22:12 cp 02/02 22:11 Order name: Cardiac monitoring; Complete Time: 22:39 02/02 22:11 Order name: EKG - Nurse/Tech; Complete Time: 22:39 cp 02/02 22:11 Order name: IV Saline Lock; Complete Time: 22:39 cp 02/02 22:11 Order name: Labs collected and sent; Complete Time: 22:39 02/02 22:11 Order name: O2 Per Protocol; Complete Time: 22:39 cp 02/02 22:11 Order name: O2 Sat Monitoring; Complete Time: 22:39 cp EC/12 22:30 Rate is 65 beats/min. Rhythm is regular. SD interval is normal. QRS interval is normal. cp QT interval is normal. T waves are Inverted in lead aVR. Interpreted by me. Reviewed by me. Administered Medications: 22:33 Drug: Ondansetron IVP 4 mg IVP once; over 2 minutes Route: IVP; Site: right antecubital;bm8 22:39 Follow up: Response: No adverse reaction bm8 22:33 Drug: Ativan IVP 1 mg IVP once Route: IVP; Site: right antecubital; bm8 22:39 Follow up: Response: No adverse reaction bm8 02/03 00:11 Drug: Decadron - Dexamethasone IVP 10 mg IVP once Route: IVP; Site: right antecubital; bm8 00:27 Follow up: Response: No adverse reaction bm8 00:11 Drug: Amoxicillin-Clavulanate PO 875 mg PO once Route: PO; bm8 00:27 Follow up: Response: No adverse reaction bm8 Disposition: 02:27 Co-signature as Attending Physician, Juan Carlos Parham MD I agree with the assessment sp4 and plan of care. I reviewed the patient's care provided by the Advanced Practice Provider and agree with the diagnosis and treatment plan. Disposition Summary: 02/04/24 00:16 Discharge Ordered Notes: Location: Home cp Problem: new cp Symptoms: have improved cp Condition: Stable cp Diagnosis - Dysphagia, unspecified cp - Acute pharyngitis, unspecified cp Followup: cp - With: Brook Steve MD - When: 5 - 6 days - Reason: Recheck today's complaints Discharge Instructions: - Discharge Summary Sheet cp - Dysphagia cp - Sore Throat cp Forms: - Medication Reconciliation Form cp - Antibiotic Education cp - Prescription Opioid Use cp - Patient Portal Instructions cp - Leadership Thank You Letter cp Prescriptions: - Lidocaine Viscous - take 5 milliliter ORAL route every 4-6 hours; 120 milliliter; Refills: 0, cp Product Selection Permitted - Augmentin 875-125 mg Oral Tablet - take 1 tablet ORAL route every 12 hours for 10 days; 20 tablet; Refills: 0, cp Product Selection Permitted Signatures: Dispatcher [employer] EDMS Marva Valera, RN RN ss Omar Vitale, NANDO PA Juan Carlos Ward MD MD sp4 Slim Bullard, RN RN bm8 Corrections: (The following items were deleted from the chart) 02/02 22:05 22:05 PMHx: High Cholesterol (Pancreatitis); [facility] 22:12 22:12 BASIC METABOLIC PANEL+C.LAB.BRZ ordered. EDMS EDMS 22:12 22:12 CBC+H.LAB.BRZ ordered. EDMS EDMS 22:12 22:12 HEPATIC FUNCTION+C.LAB.BRZ ordered. EDMS EDMS 22:12 22:12 MAGNESIUM+C.LAB.BRZ ordered. EDMS EDMS 22:12 22:12 Troponin High Sensitivity+C.LAB.BRZ ordered. EDMS EDMS 22:12 22:12 Group A Streptococcus Rapid Sc+BA.LAB.BRZ ordered. EDMS EDMS 22:12 22:12 MONO SCREEN PROFILE+I.LAB.BRZ ordered. EDMS EDMS
[2024-02-04 01:12] VITALS: TEMP 97.5
[2024-02-04 01:17] VITALS: BP 170/94; O2SAT 92
--- NOTE | 2024-02-04 12:37 | RAD REPORT ---
EXAM DESCRIPTION: Chest Single View CLINICAL HISTORY: 8 years Female, dysphagia COMPARISON: Chest radiograph dated 08/13/2023 IMPRESSION: No focal lung consolidation. No pleural effusion. No pneumothorax. Cardiomediastinal silhouette is within normal limits. No acute osseous abnormality. Electronically signed by: Marin Navarro DO 02/03/2024 10:57 PM CDT 9 [facility]02/03/2024 10:48 pm
--- NOTE | 2024-02-05 19:22 | RAD REPORT ---
EXAM DESCRIPTION: CT - Soft Tissue Neck W/Contr - 02/04/2024 6:51 am CLINICAL HISTORY: Dysphagia. COMPARISON: None. TECHNIQUE: CT of the neck was performed following intravenous administration of iodinated contrast. Axial, coronal, and sagittal reconstructions were created and sent to PACS. This exam was performed according to our departmental dose-optimization program, which includes autom ated exposure control, adjustment of the mA and/or kV according to patient size and/or use of iterati ve reconstruction technique. FINDINGS: Mild asymmetric soft tissue thickening along the posterior wall of the right hypopharynx ( such as on axial series 401 image 41). No lymphadenopathy. No fluid collections identified. Specifica lly, no retropharyngeal fluid collection. No edema or fluid collection involving the floor of the tejas th. No epiglottic thickening. The visualized paranasal sinuses and mastoid air cells are clear. Unrem arkable appearance of the visualized portions of the brain parenchyma. Unremarkable appearance of the orbital contents. Unremarkable appearance of the thyroid gland. No acute findings in the lung apices . No concerning osseous abnormality identified. IMPRESSION: 1. No acute findings. 2. Nonspecific mild thickening along the posterior wall of the right hypopharynx. Consider nonemerg ent follow-up direct visualization. Electronically signed by: Carmencita Olmos MD 02/03/2024 11:47 PM CDT Due to temporary technical issues with the PACS/Fluency reporting system, reports are being signed by the in house radiologists without review as a courtesy to insure prompt reporting. The interpreting radiologist is fully responsible for the content of the report.
--- NOTE | 2024-02-05 19:26 | RAD REPORT ---
EXAM DESCRIPTION: CT - Head C Spine Mpr Wo Con - 02/04/2024 6:51 am CLINICAL HISTORY: Dysphagia. TECHNIQUE: Noncontrast CT through the head was performed. Axial, coronal, and sagittal reconstructio ns were created and sent to PACS. CT of the cervical spine was performed without contrast. Axial, coronal, and sagittal reconstructions were created and sent to PACS. These exams were performed according to our departmental dose-optimization program which includes use of Automated Exposure Control, adjustment of the mA and/or kV according to patient size and/or use o f iterative reconstruction technique. COMPARISON: CT head and cervical spine from October 16, 2020. FINDINGS: CT Head: The brain parenchyma appears unremarkable. There is no intra-axial or extra-axial bleed seen. There i s no mass or mass effect. The ventricles are normal in size, shape, and configuration. The orbital co ntents appear unremarkable. The visualized paranasal sinuses and mastoid air cells are clear. No acute fracture is identified. CT cervical spine: No acute osseous abnormality identified. Vertebral body height and alignment are maintained. No atlan todental interval widening. Atlantoaxial alignment is maintained. The facet joints are well aligned. The posterior elements are intact. The occipital condyles are well aligned with the C1 lateral masses . The transverse foramina are intact. Mild to moderate facet arthrosis throughout the cervical spine. No significant central canal or neuroforaminal narrowing throughout the cervical spine. Paraspinal soft tissues: No prevertebral soft tissue swelling. No evidence of epidural hematoma. No a cute findings in the demonstrated portions of the lung apices. IMPRESSION: 1. No acute intracranial abnormality identified. 2. No acute osseous abnormality identified in the cervical spine. Electronically signed by: Carmencita Olmos MD 02/03/2024 11:44 PM CDT RP Due to temporary technical issues with the PACS/Fluency reporting system, reports are being signed by the in house radiologists without review as a courtesy to insure prompt reporting. The interpreting radiologist is fully responsible for the content of the report.
--- NOTE | 2024-02-07 13:00 | EKG ---
Test Date: 2024-02-03 Test Time: 22:22:22 Train Caller: GILLIAN MEASUREMENT RESULTS: Intervals: Rate: 65 [place]: 174 QRSD: 92 QT: 436 QTc: 453 [place]: P: 58 [place]: 174 QRS: 15 T: 34 INTERPRETIVE STATEMENTS: Normal sinus rhythm Normal ECG Compared to ECG 10/21/2022 11:07:39 Prolonged QT interval no longer present Electronically Signed On 02-07-24 12:51:00 CDT by Uli Johnson
== END 2024-02-04 00:27 | disposition home or self-care (01) ==
LOC: ER 21:55
DX: R13.10 Dysphagia, unspecified (principal); J02.9 Acute pharyngitis, unspecified; E11.9 Type 2 diabetes mellitus without complications; I10 Essential (primary) hypertension
CPT/HCPCS: 93005; 87070; 85025; 80048; 36415; 83735; 86308; 80076; 87081; 84484; 70450; 72125; 70491; 71045; 96375; 96374; 99284; Q9967; J1100; J2405

== ENCOUNTER 2024-03-17 01:22 | Emergency (ER) | payer MEDICARE ==
[2024-03-17 03:28] LABS: Absolute Basophils 0.1 K/uL (0-0.5); Absolute Eosinophils 0.2 K/uL (0-0.5); Absolute Lymphocytes (CBC) 2.6 K/uL (0.7-4.9); Absolute Monocytes 0.6 K/uL (0.1-1.3); Absolute Neutrophil 2.9 K/uL (1.8-8.0); Basophils % 0.9 % (0-1.3); Eosinophils % 2.7 % (0-4.4); Hematocrit 35.4 % (36.0-45.0); Hemoglobin 12.1 g/dL (12.0-15.0); Lymphocytes % 41.1 % (15.3-44.8); MCH 30.8 pg (27.0-35.0); MCHC 34.1 g/dL (32.0-36.0); MCV 90.4 fL (80-100); MPV 8.6 fL (7.6-11.3); Monocytes % 9.1 % (3.3-12.3); Neutrophils % 46.2 % (41.7-73.7); PT Prothrombin Time 13.7 SECONDS (9.4-12.5); Platelets 197 thou/uL (152-406); Protime INR 1.23; RBC Red Blood Cell Count 3.92 M/uL (3.86-4.86); Red Cell Distribution Width 13.9 % (12.1-15.2)
[2024-03-17 03:55] LABS: Albumin 3.2 g/dL (3.4-5.0); Albumin/Globulin Ratio 0.8 (1.1-1.8); Anion Gap 7.4 mEq/L (5.0-15.0); Bilirubin Total 0.6 mg/dL (0.2-1.0); Globulin 3.9 g/dL (2.3-3.5); Potassium 3.4 mEq/L (3.5-5.1); Protein, Total 7.1 g/dL (6.4-8.2)
[2024-03-17 04:08] LABS: Renal Epithelial <5 /HPF (None Seen); Specific Gravity 1.012 (1.005-1.030); Sqamous Epithelial None Seen /HPF (None Seen); Urine Bacteria None Seen /HPF (<20); Urine Bilirubin NEGATIVE (Negative); Urine Blood Negative (Negative); Urine Clarity Clear (Clear); Urine Color Yellow (Yellow); Urine Culture Reflex Order NOT NEEDED; Urine Glucose NEGATIVE (Negative); Urine Ketones NEGATIVE (Negative); Urine Micro Reflex YN NO BILL MICROSCOPIC; Urine Nitrite NEGATIVE (Negative); Urine Protein NEGATIVE (Negative); Urine RBC <5 /HPF (None Seen); Urine Urobilinogen Normal (Normal); Urine WBC <5 /HPF (<5)
[2024-03-17 04:09] LABS: C-Reactive Protein 4.95 mg/L (<3.00); Thyroid Stimulating Hormone 0.024 uIU/mL (0.358-3.740); Troponin High Sensitivity 6.5 pg/mL (<58.9)
--- NOTE | 2024-03-17 07:03 | ER ---
Nurse's Notes [facility] Name: Fariba Roper Age: 68 yrs Sex: Female : 1955 Arrival Date: 03/17/2024 Time: 01:22 Bed 13 Private MD: Diagnosis: Abdominal pain, Generalized;Other malaise and fatigue;Fatigue and generalized weakness, body aches, Presentation: 03/17 01:39 Chief complaint: Patient states: low blood sugar since yesterday. the lowest 53 bgl. ha1 01:39 Coronavirus screen: Vaccine status: Patient reports being unvaccinated. Ebola Screen: ha1 No symptoms or risks identified at this time. Initial Sepsis Screen: Does the patient meet any 2 criteria? No. Patient's initial sepsis screen is negative. Does the patient have a suspected source of infection? No. Patient's initial sepsis screen is negative. Risk Assessment: Do you want to hurt yourself or someone else? Patient reports no desire to harm self or others. Onset of symptoms was March 17, 2024. 01:39 Method Of Arrival: Ambulatory ha1 01:39 Acuity: NIKA 3 ha1 Triage Assessment: 01:46 General: Appears comfortable, Behavior is calm, cooperative. Pain: Denies pain. Neuro: ha1 Level of Consciousness is awake, alert, obeys commands, Oriented to person, place, time, situation. Cardiovascular: Patient's skin is warm and dry. Respiratory: Airway is patent Respiratory effort is even, unlabored, Respiratory pattern is regular, symmetrical. Historical: - Allergies: 01:46 Codeine; ha1 - Home Meds: 01:46 benzonatate 200 mg Oral cap 1 cap 3 times per day [Active]; levothyroxine 75 mcg tab 1 ha1 tab once daily [Active]; rivaroxaban 10 mg Oral 1 tab once daily [Active]; - PMHx: 01:46 Diabetes - NIDDM; Hypertension; Hypothyroidism; Pancreatitis; ha1 - Immunization history:: Adult Immunizations up to date. - Infectious Disease History:: Denies. - Social history:: Smoking status: Patient denies any tobacco usage or history of. - Family history:: not pertinent. Screenin:53 Abuse screen: Denies threats or abuse. Denies injuries from another. Nutritional ha1 screening: No deficits noted. Tuberculosis screening: No symptoms or risk factors identified. 02:30 [facility] ED Fall Risk Assessment (Adult) History of falling in the last 3 months, jj7 including since admission No falls in past 3 months (0 pts) Confusion or Disorientation No (0 pts) Intoxicated or Sedated No (0 pts) Impaired Gait No (0 pts) Mobility Assist Device Used No (0 pt) Altered Elimination No (0 pt) Score/Fall Risk Level 0 - 2 = Low Risk Oriented to surroundings, Maintained a safe environment, Educated pt \T\ family on fall prevention, incl call for assistance when getting out of bed, Assessed \T\ reinforced patient's understanding of fall precautions. Assessment: 02:30 General: Appears in no apparent distress. comfortable, Behavior is calm, cooperative, jj7 appropriate for age. Pain: Complains of pain in BODY ACHES. Neuro: No deficits noted. 03:30 Reassessment: Patient is alert, oriented x 3, equal unlabored respirations, skin jj7 warm/dry/pink. 04:30 Reassessment: No changes from previously documented assessment. Patient and/or family jj7 updated on plan of care and expected duration. Pain level reassessed. 06:30 Reassessment: No changes from previously documented assessment. jj7 Vital Signs: 01:39 BP 128 / 75; Pulse 82; Resp 17 S; Temp 98.2(O); Pulse Ox 97% on R/A; Weight 83.01 kg; ha1 Height 5 ft. 4 in. ; Pain 0/10; 03:00 BP 138 / 65; Pulse 66; Resp 16; Pulse Ox 100% ; jj7 04:00 BP 122 / 58; Pulse 65; Resp 17; Pulse Ox 97% ; jj7 05:15 BP 129 / 52; Pulse 72; Resp 19; Pulse Ox 97% ; jj7 06:00 BP 137 / 64; Pulse 72; Resp 16; Pulse Ox 98% ; jj7 07:09 BP 132 / 65; Pulse 74; Resp 17; Temp 98.8; Pulse Ox 96% ; jj7 01:39 Body Mass Index 31.41 (83.01 kg, 162.56 cm) ha1 01:39 Pain Scale: Adult ha1 ED Course: 01:29 Patient arrived in ED. im 01:46 Triage completed. ha1 01:49 Juan Carlos Parham MD is Attending Physician. sp4 02:24 Luis Brandon, RN is Primary Nurse. jj7 02:30 Patient has correct armband on for positive identification. Bed in low position. Call jj7 light in reach. Adult w/ patient. Provided Education on: USE OF CALL SIDDIQUI. Warm blanket given. 02:30 No provider procedures requiring assistance completed. Inserted saline lock: 20 gauge jj7 in right antecubital area, using aseptic technique. Blood collected. Flushed with 10 mL NS. 03:28 NT PRO-BNP Sent. jj7 03:28 PT-INR Sent. jj7 03:28 Troponin HS Sent. jj7 03:28 CRP Sent. jj7 03:28 T4 Free Sent. jj7 03:28 TSH Sent. jj7 03:28 CBC with Diff Sent. jj7 03:28 CMP Sent. jj7 03:28 Lipase Sent. jj7 03:30 Door closed. Lights dimmed. jj7 05:00 CT Chest, Abdomen, Pelvis - W/Contrast In Process Unspecified. EDMS 05:00 CT Head Brain wo Cont In Process Unspecified. EDMS 07:10 IV discontinued, intact, bleeding controlled, No redness/swelling at site. Pressure jj7 dressing applied. Administered Medications: No medications were administered Medication: 02:30 VIS not applicable for this client. jj7 Point of Care Testing: Blood Glucose: 01:53 Blood Glucose: 186 mg/dL; ha1 Ranges: Outcome: 07:02 Discharge ordered by . sp4 07:10 Discharged to home ambulatory, with family, jj7 07:10 Condition: improved 07:10 Discharge instructions given to patient, 07:16 Patient left the ED. kc6 Signatures: Dispatcher [employer] EDMS Kim Benz RN RN ha1 Vania Jane RN RN kc6 Luis Brandon RN RN jj7 Potepalov, Sergey, MD MD sp4 Rossy Elder Corrections: (The following items were deleted from the chart) 05:26 02:30 Neuro: jj7 jj7
--- NOTE | 2024-03-17 07:03 | EDPHYS ---
Physician Documentation [facility] Name: Fariba Roper Age: 68 yrs Sex: Female : 1955 Arrival Date: 03/17/2024 Time: 01:22 Bed 13 Private MD: ED Physician Juan Carlos Parham HPI: 03/17 01:50 This 68 yrs old Female presents to ER via Ambulatory with complaints of Low sp4 Blood Sugar. 19:58 68-year-old female presents with complaint of generalized body aches, low blood sugars, sp4 generalized weakness, malaise, and feeling unwell for the past several weeks. Although patient states that she suspects her low blood sugar readings is secondary to her malfunctioning Dexcom. Historical: - Allergies: 01:46 Codeine; ha1 - Home Meds: 01:46 benzonatate 200 mg Oral cap 1 cap 3 times per day [Active]; levothyroxine 75 mcg tab 1 ha1 tab once daily [Active]; rivaroxaban 10 mg Oral 1 tab once daily [Active]; - PMHx: 01:46 Diabetes - NIDDM; Hypertension; Hypothyroidism; Pancreatitis; ha1 - Immunization history:: Adult Immunizations up to date. - Infectious Disease History:: Denies. - Social history:: Smoking status: Patient denies any tobacco usage or history of. - Family history:: not pertinent. ROS: 19:58 Constitutional: Negative for fever, chills, and weight loss, sp4 19:58 All other systems are negative, Exam: 19:58 Constitutional: This is a well developed, well nourished patient who is awake, alert, sp4 and in no acute distress. Head/Face: Normocephalic, atraumatic. Eyes: Pupils equal round and reactive to light, extra-ocular motions intact. Lids and lashes normal. Conjunctiva and sclera are not injected. Cornea within normal limits. Periorbital areas with no swelling, redness, or edema. ENT: Nares patent. No nasal discharge, no septal abnormalities noted. Tympanic membranes are normal and external auditory canals are clear. Oropharynx with no redness, swelling, or masses, exudates, or evidence of obstruction, uvula midline. Mucous membranes moist. Neck: Trachea midline, no thyromegaly or masses palpated, and no cervical lymphadenopathy. Supple, full range of motion without nuchal rigidity, or vertebral point tenderness. Chest/axilla: Normal chest wall appearance and motion. Nontender with no deformity. No lesions are appreciated. Cardiovascular: Regular rate and rhythm with a normal S1 and S2. No gallops, murmurs, or rubs. Normal PMI, no JVD. No pulse deficits. Respiratory: Lungs have equal breath sounds bilaterally, clear to auscultation and percussion. No rales, rhonchi or wheezes noted. No increased work of breathing, no retractions or nasal flaring. Abdomen/GI: Soft, with normal bowel sounds. No distension or tympany. No guarding or rebound. No evidence of tenderness throughout. Back: No spinal tenderness. No costovertebral tenderness. Skin: Warm, dry with normal turgor. Normal color with no rashes, no lesions, and no evidence of cellulitis. MS/ Extremity: Pulses equal, no cyanosis. Neurovascular intact. Full, normal range of motion. Neuro: Awake and alert, GCS 15, oriented to person, place, time, and situation. Cranial nerves II-XII grossly intact. Motor strength 5/5 in all extremities. Sensory grossly intact. Psych: Awake, alert, with orientation to person, place and time. Behavior, mood, and affect are within normal limits 19:58 ECG was reviewed by the Attending Physician. EKG at 0 338 reveals normal sinus rhythm Vital Signs: 01:39 BP 128 / 75; Pulse 82; Resp 17 S; Temp 98.2(O); Pulse Ox 97% on R/A; Weight 83.01 kg; ha1 Height 5 ft. 4 in. ; Pain 0/10; 03:00 BP 138 / 65; Pulse 66; Resp 16; Pulse Ox 100% ; jj7 04:00 BP 122 / 58; Pulse 65; Resp 17; Pulse Ox 97% ; jj7 05:15 BP 129 / 52; Pulse 72; Resp 19; Pulse Ox 97% ; jj7 06:00 BP 137 / 64; Pulse 72; Resp 16; Pulse Ox 98% ; jj7 07:09 BP 132 / 65; Pulse 74; Resp 17; Temp 98.8; Pulse Ox 96% ; jj7 01:39 Body Mass Index 31.41 (83.01 kg, 162.56 cm) ha1 01:39 Pain Scale: Adult ha1 MDM: 01:50 Medical Screening Exam initiated sp4 03:38 Differential diagnosis: Bushnell's syndrome, diabetes insipidus, DKA, gestational sp4 diabetes, hyperglycemia, hyperthyroidism, hypoglycemic episode, hypothyroidism, myxedema coma, new onset diabetes, thyroid storm. Data reviewed: vital signs, nurses notes, [facility] records, old medical records, lab test result(s), EKG, radiologic studies, CT scan. Consideration of Admission/Observation Escalation of care including admission/observation considered. ED course: Full evaluation has revealed no signs of acute medical conditions. Patient advised to follow-up with education spec for further evaluation of her symptoms of fatigue malaise generalized body aches and generalized weakness. . 06:41 ED course: TECHNIQUE: Noncontrast CT head. All CT scans at this facility use dose sp4 modulation, iterative reconstruction, and/or weight based dosing when appropriate to reduce radiation dose to as low as reasonably achievable. COMPARISON: CT head 02/03/2024. FINDINGS: Parenchyma: No acute hemorrhage, large territorial infarction, or mass effect. Ventricles and extra-axial spaces: Appropriate for age. Visualized paranasal sinuses: Clear. Mastoid air cells: Clear. Bones: No acute focal abnormality. Additional comment: None. IMPRESSION: No acute intracranial findings. . ED course: EXAM: 1. CT scan of the CHEST with intravenous contrast. 2. CT scan of the ABDOMEN AND PELVIS with intravenous contrast CLINICAL DATA: 68 years Female ABDOMINAL DISTENTION. TECHNICAL DATA: CT imaging of the chest, abdomen and pelvis with intravenous contrast administration. Sagittal and coronal reconstructed images were performed. The CT study is performed according to ALARA (as low as reasonably achievable) or ALARA/IMAGE GENTLY, with automatic adjustment of mA and/or kV according to patient size. Performed on: 03/17/2024 at 4:43 AM Comparisons: CT abdomen and pelvis with contrast performed on 12/09/[address] chest angiography performed on 08/13/2020 FINDINGS: CHEST: Lungs:The lungs are well expanded. There is minimal bibasilar dependent fibrosis and/or atelectasis. No focal airspace consolidation is identified. The central airways are patent. There are no pleural effusions. There is no pneumothorax. Heart: The heart is normal in size. There is no pericardial effusion. Mediastinum:The mediastinum is unremarkable. The mediastinal vessels are normal in caliber and contour. Bones:No acute osseous abnormalities are identified. Soft tissues:No focal soft tissue abnormalities are identified. Lymphadenopathy: No pathologic hilar, mediastinal or axillary lymphadenopathy is identified. ABDOMEN/PELVIS: Liver:The liver is normal in size and configuration. No focal hepatic abnormalities are identified. Liver attenuation is within normal limits. Spleen:The spleen is normal in size, configuration and attenuation. Gallbladder and bile duct: The gallbladder is surgically absent. There is no biliary ductal dilatation. Pancreas: The pancreas is grossly normal in size and configuration. Adrenal Glands:The adrenal glands are normal in size and configuration. Kidneys:The kidneys are normal in size and configuration. There is no evidence of hydronephrosis. There is no evidence of nephrolithiasis. No definite solid or cystic renal mass lesions are identified. Stomach:The stomach is grossly normal. There is no definite hiatal hernia. Bowel:The bowel gas pattern is non specific and non obstructive. Cont Appendix: The appendix is normal. Free air:There is no evidence of free air. Free fluid: There is no evidence of free fluid. Vasculature: The aorta is normal in caliber and contour. The inferior vena cava is grossly unremarkable. Lymphadenopathy: No pathologic lymphadenopathy is identified. Bladder: The bladder is well distended and smooth in contour. Reproductive: The uterus is grossly within normal limits. Bones: No acute osseous abnormalities are identified. Soft tissues: No focal soft tissue abnormalities are identified. IMPRESSION: CT CHEST: 1. No evidence of acute intrathoracic disease. CT SCAN ABDOMEN AND PELVIS: 1. No evidence of acute intra-abdominal or intrapelvic pathology. 2. Status post cholecystectomy. Electronically signed by: Carina Lang DO. 03/17 01:50 Order name: CBC with Diff; Complete Time: 06: sp4 03/17 01:50 Order name: CMP; Complete Time: 06: sp4 03/17 01:50 Order name: Lipase; Complete Time: 06: sp4 03/17 02:50 Order name: TSH; Complete Time: 06: sp4 03/17 02:50 Order name: T4 Free; Complete Time: 06: sp4 03/17 02:50 Order name: CRP; Complete Time: 06: sp4 03/17 02:57 Order name: NT PRO-BNP; Complete Time: 06: sp4 03/17 02:57 Order name: PT-INR; Complete Time: 06:43 sp4 03/17 02:57 Order name: Troponin HS; Complete Time: 06:43 sp4 03/17 02:58 Order name: Urinalysis W/Microscopic; Complete Time: 06:43 sp4 03/17 02:51 Order name: CT Chest, Abdomen, Pelvis - W/Contrast sp4 03/17 02:57 Order name: CT Head Brain wo Cont sp4 03/17 01:50 Order name: IV Saline Lock; Complete Time: 02:41 sp4 03/17 01:50 Order name: Labs collected and sent; Complete Time: 02:41 sp4 03/17 02:57 Order name: Cardiac monitoring; Complete Time: 03:42 sp4 03/17 02:57 Order name: EKG - Nurse/Tech; Complete Time: 03:42 sp4 03/17 02:57 Order name: O2 Per Protocol; Complete Time: 03:28 sp4 03/17 02:57 Order name: O2 Sat Monitoring; Complete Time: 03:28 sp4 EC:38 Rate is 70 beats/min. Rhythm is regular, Normal Sinus Rhythm. QRS [place] is Normal. ME sp4 interval is normal. QRS interval is normal. QT interval is normal. No Q waves. T waves are Normal. No ST changes noted. Clinical impression: Normal ECG. Interpreted by me. Reviewed by me. Administered Medications: No medications were administered Point of Care Testing: Blood Glucose: 01:53 Blood Glucose: 186 mg/dL; ha1 Ranges: Critical Glucose Levels:Adult <50 mg/dl or >400 mg/dl <40 mg/dl or >180 mg/dl Disposition Summary: 03/17/24 07:02 Discharge Ordered Problem: new sp4 Symptoms: have improved sp4 Condition: Stable sp4 Diagnosis - Abdominal pain, Generalized sp4 - Other malaise and fatigue sp4 - Fatigue and generalized weakness, body aches, sp4 Followup: sp4 - With: Private Physician - When: 7 - 10 days - Reason: Recheck today's complaints Discharge Instructions: - Discharge Summary Sheet sp4 - Fatigue sp4 Forms: - Patient Portal Instructions sp4 Signatures: Dispatcher [employer] Kim Mosqueda RN RN ha1 Juan Carlos Parham MD MD sp4 Corrections: (The following items were deleted from the chart) 02:56 02:56 CBC+H.LAB.BRZ ordered. EDMS EDMS 02:56 02:56 COMPREHENSIVE METABOLIC PANEL+C.LAB.BRZ ordered. EDMS EDMS 02:56 02:56 LIPASE+C.LAB.BRZ ordered. EDMS EDMS 02:56 02:56 THYROID STIMULAT HORMONE+C.LAB.BRZ ordered. EDMS EDMS 02:56 02:56 T4 FREE+C.LAB.BRZ ordered. EDMS EDMS 02:56 02:56 C-REACTIVE PROTEIN+C.LAB.BRZ ordered. EDMS EDMS 02:56 02:56 Chest Abdomen Pelvis W Con+CT.RAD.BRZ ordered. EDMS EDMS 02:58 02:58 PROBNP+C.LAB.BRZ ordered. EDMS EDMS 02:58 02:58 PROTIME (+INR)+COAG.LAB.BRZ ordered. EDMS EDMS 02:58 02:58 Troponin High Sensitivity+C.LAB.BRZ ordered. EDMS EDMS 03:21 02:58 C-REACTIVE PROTEIN+C.LAB.BRZ ordered. EDMS EDMS
--- NOTE | 2024-03-17 07:26 | RAD REPORT ---
EXAM DESCRIPTION: Head Brain Wo Cont RadLex: CT HEAD WITHOUT IV CONTRAST CLINICAL HISTORY: 68 years Female; DIZZINESS; Bed Name: 13 TECHNIQUE: Noncontrast CT head. All CT scans at this facility use dose modulation, iterative reconstruction, and/or weight based dosi ng when appropriate to reduce radiation dose to as low as reasonably achievable. COMPARISON: CT head 02/03/2024. FINDINGS: Parenchyma: No acute hemorrhage, large territorial infarction, or mass effect. Ventricles and extra-axial spaces: Appropriate for age. Visualized paranasal sinuses: Clear. Mastoid air cells: Clear. Bones: No acute focal abnormality. Additional comment: None. IMPRESSION: No acute intracranial findings. Electronically signed by: Josie Diaz MD 03/17/2024 06:12 AM CDT RP Due to temporary technical issues with the PACS/[employer] reporting system, reports are being luciano d by the in-house radiologist without review as a courtesy to ensure prompt reporting the interpreting radiologist is fully responsible for the content of the report. Transcribed Date/Time: 03/17/2024 7:26 AM
--- NOTE | 2024-03-17 07:28 | RAD REPORT ---
EXAM: 1. CT scan of the CHEST with intravenous contrast. 2. CT scan of the ABDOMEN AND PELVIS with intravenous contrast CLINICAL DATA: 68 years Female ABDOMINAL DISTENTION. TECHNICAL DATA: CT imaging of the chest, abdomen and pelvis with intravenous contrast administration. Sagittal and co louis reconstructed images were performed. The CT study is performed according to ALARA (as low as reasonably achievable) or ALA RA/IMAGE GENTLY, with automatic adjustment of mA and/or kV according to patient size. Performed on: 03/17/2024 at 4:43 AM Comparisons: CT abdomen and pelvis with contrast performed on 12/09/[address] chest angiography perf ormed on 08/13/2020 FINDINGS: CHEST: Lungs:The lungs are well expanded. There is minimal bibasilar dependent fibrosis and/or atelectasis. No focal airspace consolidation is identified. The central airways are patent. There are no pleural effusions. There is no pneumothorax. Heart: The heart is normal in size. There is no pericardial effusion. Mediastinum:The mediastinum is unremarkable. The mediastinal vessels are normal in caliber and contou r. Bones:No acute osseous abnormalities are identified. Soft tissues:No focal soft tissue abnormalities are identified. Lymphadenopathy: No pathologic hilar, mediastinal or axillary lymphadenopathy is identified. ABDOMEN/PELVIS: Liver:The liver is normal in size and configuration. No focal hepatic abnormalities are identified. L iver attenuation is within normal limits. Spleen:The spleen is normal in size, configuration and attenuation. Gallbladder and bile duct: The gallbladder is surgically absent. There is no biliary ductal dilatatio n. Pancreas: The pancreas is grossly normal in size and configuration. Adrenal Glands:The adrenal glands are normal in size and configuration. Kidneys:The kidneys are normal in size and configuration. There is no evidence of hydronephrosis. There is no evidence of nephrolithiasis. No definite solid or cystic renal mass lesions are identified. Stomach:The stomach is grossly normal. There is no definite hiatal hernia. Bowel:The bowel gas pattern is non specific and non obstructive. [address] [id number] Final Radiology Report Name: GRISEL GOMEZ Age: 68y Date: 03/17/2024 2:51 AM : 1955 Study: Chest Abdomen Pelvis W Cont Requesting Physician: Juan Carlos Parham [id number] GRISEL GOMEZ DAV Page 1 of 2 [id number] Chest Abdomen Pelvis W Cont Appendix: The appendix is normal. Free air:There is no evidence of free air. Free fluid: There is no evidence of free fluid. Vasculature: The aorta is normal in caliber and contour. The inferior vena cava is grossly unremarkab le. Lymphadenopathy: No pathologic lymphadenopathy is identified. Bladder: The bladder is well distended and smooth in contour. Reproductive: The uterus is grossly within normal limits. Bones: No acute osseous abnormalities are identified. Soft tissues: No focal soft tissue abnormalities are identified. IMPRESSION: CT CHEST: 1. No evidence of acute intrathoracic disease. CT SCAN ABDOMEN AND PELVIS: 1. No evidence of acute intra-abdominal or intrapelvic pathology. 2. Status post cholecystectomy. Electronically signed by: Carina Lnag DO 03/17/2024 06:25 AM [facility] Due to temporary technical issues with the PACS/[employer] reporting system, reports are being luciano d by the in-house radiologist without review as a courtesy to ensure prompt reporting the interpreting radiologist is fully responsible for the content of the report. Transcribed Date/Time: 03/17/2024 7:28 AM
--- NOTE | 2024-03-17 14:11 | EKG ---
Test Date: 2024-03-17 Test Time: 03:38:20 Headlight Assembler: JEANNIE MEASUREMENT RESULTS: Intervals: Rate: 70 [place]: 164 QRSD: 90 QT: 430 QTc: 464 [place]: P: 73 [place]: 164 QRS: 17 T: 14 INTERPRETIVE STATEMENTS: Normal sinus rhythm Normal ECG Compared to ECG 02/03/2024 22:22:22 No significant changes Electronically Signed On 03-17-24 14:09:29 CDT by Carlos Jean-Baptiste
[2024-03-17 17:54] VITALS: BP 132/65; TEMP 98.8; O2SAT 96
== END 2024-03-17 07:16 | disposition home or self-care (01) ==
LOC: ER 01:22
DX: R10.84 Generalized abdominal pain (principal); R53.1 Weakness; R53.81 Other malaise; R53.83 Other fatigue; E11.9 Type 2 diabetes mellitus without complications; I10 Essential (primary) hypertension; E03.9 Hypothyroidism, unspecified
CPT/HCPCS: 93005; 85025; 81001; 36415; 85610; 84443; 84484; 84439; 83690; 80053; 83880; 86140; 70450; 71260; 74177; 99284; Q9967